=== PATIENT | female | born 1940 | race Caucasian/White ===

== ENCOUNTER 2023-10-18 10:12 | Outpatient (OUT) | payer MEDICARE, OTHER, SELFPAY ==
--- NOTE | 2023-10-18 10:30 | MM_ITS ---
Patient Name: SHANTI ZUNIGA MR#: [id number] : 1940 Exam Date: 10/18/2023 Ordering Doctor: DR Ba Billingsley D.O. RADIOLOGY REPORT PROCEDURE: MM TOMOSYNTHESIS SCREENING BI COMPARISON: MG MAMM SCREEN 3D TU CAD, 09/24/2021. MG MAMM SCREEN 3D TU CAD, 10/14/2022. INDICATIONS: screening Calculator Name NCI Breast Cancer Risk Assessment Tool 5 Year Breast Cancer Risk 3.70% Lifetime Breast Cancer Risk 5.70% Personal Breast Cancer No Personal Ovarian Cancer No Treatments None Family Cancers Sister with breast cancer at age 63; Father with lung cancer at age 71; Cousin-paternal with breast cancer at age 50. LOCATION: [facility] BREAST COMPOSITION: There are scattered areas of fibroglandular density. FINDINGS: DIAGNOSTIC CATEGORY 2--BENIGN FINDING. NO CHANGE FROM COMPARISON. Scattered benign-appearing nodules are present. Scattered benign-appearing calcifications are present. Scattered benign-appearing lymph nodes are present. RIGHT BREAST: No significant suspicious finding. LEFT BREAST: No significant suspicious finding. Stable micro clip marker upper outer quadrant, anterior breast RECOMMENDATIONS: ROUTINE MAMMOGRAM AND CLINICAL EVALUATION IN 12 MONTHS. PLEASE NOTE: A NORMAL MAMMOGRAM DOES NOT EXCLUDE THE POSSIBILITY OF BREAST CANCER. A CLINICALLY SUSPICIOUS PALPABLE LUMP SHOULD BE BIOPSIED. Dictated by: Ricky Nguyen MD on 10/18/2023 at 13:39 Approved by: Ricky Nguyen MD on 10/18/2023 at 13:58
[2023-10-18 10:40] LABS: Basophils Absolute Auto 0.1 10^3/uL (0.0-0.1); Basophils Percent Auto 0.6 % (0.2-2.0); Eosinophils Percent Auto 0.4 % (0.9-7.0); Hematocrit 42.6 % (36.0-48.0); Hemoglobin 13.7 g/dL (12.0-16.0); Immature Granulocytes Abs Auto 0.04 10^3/uL (0.00-0.03); Immature Granulocytes Pct Auto 0.4 % (0.0-0.5); Lymphocytes Absolute Auto 2.9 10^3/uL (1.2-3.8); Lymphocytes Percent Auto 26.5 % (20.5-60.0); Mean Corpuscular HGB Conc 32.2 g/dL (29.9-35.2); Mean Corpuscular Hemoglobin 30.2 pg (26.7-34.0); Mean Corpuscular Volume 93.8 fL (81.0-99.0); Mean Platelet Volume 11.1 fL (9.5-13.5); Monocytes Absolute Auto 0.4 10^3/uL (0.3-0.8); Monocytes Percent Auto 3.8 % (1.7-12.0); Neutrophils Absolute Auto 7.4 10^3/uL (1.4-6.5); Neutrophils Percent Auto 68.3 % (43.0-75.0); Platelet Count 274 10^3/uL (150-450); Red Blood Count 4.54 10^6/uL (4.20-5.40); Red Cell Distribution Width 12.3 % (11.0-15.0); White Blood Count 10.8 10^3/uL (4.0-11.0)
[2023-10-18 11:08] LABS: Bilirubin Urine NEGATIVE (NEGATIVE); Blood Urine NEGATIVE (NEGATIVE); Clarity Urine CLEAR (CLEAR); Color Urine LT. YELLOW (YELLOW); Glucose Urine UA NEGATIVE (NEGATIVE); Ketones Urine NEGATIVE (NEGATIVE); Leukocyte Esterase Urine NEGATIVE (NEGATIVE); Nitrite Urine NEGATIVE (NEGATIVE); Protein Urine NEGATIVE (NEG/TRACE); Specific Gravity Urine 1.015 (1.005-1.025); Urobilinogen Urine 0.2 EU/dL (0.2-1.0)
[2023-10-18 11:16] LABS: Alanine Aminotransferase 22 U/L (14-59); Albumin Level 3.6 g/dL (3.4-5.0); Alkaline Phosphatase 68 U/L (46-116); Anion Gap 12.5; Aspartate Amino Transferase 16 U/L (15-37); BUN Creatinine Ratio 25.3; Bilirubin Total 0.5 mg/dL (0.2-1.0); Calcium 10.2 mg/dL (8.5-10.1); Carbon Dioxide 27.7 mmol/L (21.0-32.0); Chloride 101 mmol/L (98-107); Chol HDL Ratio 3.4; Cholesterol 233 mg/dL (<=200); Estimated GFR (African America >60 (>=60); Estimated GFR (Non-African Ame 59 (>=60); Globulin 3.5 g/dL; Glucose 121 mg/dL (74-106); HDL Cholesterol 69 mg/dL (40-60); Potassium 4.2 mmol/L (3.5-5.1); Sodium 137 mmol/L (136-145); Total Protein 7.1 g/dL (6.4-8.2); Triglycerides 78 mg/dL (<=150); VLDL CHOLESTEROL 15.6 mg/dL
== END 2023-10-18 10:13 | disposition home or self-care (01) ==
LOC: MAMMO 10:12
PROVIDERS: PCP Internal Medicine; Visit Provider Internal Medicine
DX: Z12.31 Encounter for screening mammogram for malignant neoplasm of breast (principal); E78.00 Pure hypercholesterolemia, unspecified; I10 Essential (primary) hypertension; K21.00 Gastro-esophageal reflux disease with esophagitis, without bleeding; R10.9 Unspecified abdominal pain; Z80.3 Family history of malignant neoplasm of breast; Z80.1 Family history of malignant neoplasm of trachea, bronchus and lung
CPT/HCPCS: 36415; 77063; 77067; 80053; 80061; 81003; 85025

== ENCOUNTER 2024-01-31 07:59 | Outpatient (OUT) | payer MEDICARE, OTHER, SELFPAY ==
--- OUTSIDE RECORDS SUMMARY | 2024-01-31 08:09 | XMS_ITS | CCD ---
Author Organization [facility] Inform ion [facility] Care Team Providers Care Learning Services Coordinator Name Role Phone Ba Billingsley Unavailable DR CHANO SOTELO Attending Unavailable ROSANNA, DR GUILHERME Mcdonough Consulting Unavailable JOSE CRUZ, DR COSME Primary Care Unavailable DEEPAK, DR CHANO Ramos Admitting Unavailable SOTELO, DR CHANO Ramos Consulting Unavailable JOSE CRUZ, DR COSME Attending Unavailable JOSE CRUZ, DR COSME Consulting Unavailable JOSE CRUZ, DR COSME Primary Care Unavailable JOSE CRUZ, DR COSME Admitting Unavailable ROSANNA, DR GUILHERME Mcdonough Consulting Unavailable ERIC ABBASI Attending Unavailable Jose Cruz, DO Cosme Primary Care Provider MD Freedom Parra Attending Provider Freedom Parra Admitting Unavailable Freedom Parra Attending Unavailable Ba Billingsley Primary Care Unavailable Freedom Parra Admitting Unavailable Freedom Parra Attending Unavailable Ba Billingsley Primary Care Unavailable Bobby Purcell II Admitting UnavailBobby Spaulding II Attending UnavailBa Latham Primary Care Unavailable Allergies Allergy Classification Reported Allergen(s) Allergy Type Date of Onset Reaction(s) Facility (4 sources) sulfADIAZINE Drug Allergy Unknown iSn[facility] Other (4 sources) Sulfamethoxazole / Trimethoprim Drug Allergy Unknown [facility] Other (1 source) Sulfonamides (Antibiotic) Drug allergy (disorder) 7 [facility] Repository (1 source) sulfADIAZINE Drug Allergy 4 [facility] Repository (1 source) Sulfamethoxazole Drug Allergy 4 [facility] Repository (1 source) Trimethoprim Drug Allergy [address] [place] [address] Repository Medications Current Medications Medication Drug Class(es) Dates Sig (Normalized) Sig (Original) amLODIPine 5 mg oral tablet (20 sources) Dihydropyridine Calcium Channel Maximilian Start: 10-13-2023 take 5 mg by mouth once daily Amlodipine Active 5 MG PO Daily October 13, 2023 10:26am Start: 09-10-2023 End: 10-13-2023 Amlodipine Discontinued 0 .R OUTE .COMPLEX 90 September 10, 2023 12:55pm October 13, 2023 10:27am TAKE 1 TABLET DAILY Start: 08-19-2023 End: 09-10-2023 take 1 tablet by mouth once daily Amlodipine Discontinued 1 TAB PO Daily August 19, 2023 1:00am September 10, 2023 12:55pm FreeTextSi tablet Orally Once a day; Note: Source Status: Continue; Provider: Jose Cruz Ramos take 1 tablet by magan th every twenty-four hours amLODIPine Besylate 5 MG 1 tablet Orally Once a day Active azithromycin 250 mg oral tablet (1 source) Macrolide Antimicrobial Start: 09-28-2022 Azithromycin 250 MG as directed Orally daily for 5 days Sep, Active benazepril hydrochloride 20 mg oral tablet (16 sources) Angiotensin Converting Enzyme Inhibitor Start: 08-19-2023 End: 10-13-2023 take 1 tablet by mouth once daily Benazepril Active 20 MG PO Daily October 13, 2023 10:27am FreeTextSi tablet Orally Once a day; Note: Source Status: Continue; Provider: Jose Cruz Ramos Start: 08-05-2022 take 1 tablet by magan th every twenty-four hours Benazepril HCl 20 MG 1 tablet Orally Once a day Jul, Active calcium carbonate 1500 mg / cholecalciferol 800 unt chewable tablet (6 sources) Vitamin D Start: 08-19-2023 take 1 tablet by mouth once daily Calcium Carbonate-Vitamin D3 (Caltrate 600 Plus D) 600 mg-20 mcg (800 unit) tablet,chewable Active 1 TAB PO Daily August 19, 2023 1:00am fluticasone propionate 0.05 mg/actuat metered dose nasal spray (4 sources) Corticosteroid Start: 12-21-2023 take 1 spray(s) nasal route once daily Fluticasone Propionate (24 Hour Allergy Relief) 50 mcg/actuation spray,suspension Active 1 SPRAY INTRANASAL Daily December 21, 2023 12:00am administer into each nostril hydroCHLOROthiazide 25 mg oral tablet (16 sources) Thiazide Diuretic Start: 08-19-2023 End: 10-13-2023 Hydrochlorothiazide Active 25 MG PO Daily October 13, 2023 10:27am FreeTextSi tablet daily Orally Once a day; Note: Source Status: Continue; Provider: Jose Cruz Ramos Start: 08-19-2022 hydroCHLOROthi azide 25 MG 1 tablet daily Orally Once a day Aug, Active {20 (nirmatrelvir 150 MG Oral Tablet) / 10 (ritonavir 100 MG Oral Tablet) } Pack [Paxlovid 5-Day] (2 sources) Start: 09-10-2022 take 3 tablets by mouth every twelve hours Paxlovid (300/100) 20 x 150 MG & 10 x 100MG 3 tablets Orally Twice a day for 5 day(s) Aug, Active Completed/Discontinued Medications Medication Drug Class(es) Dates Sig (Normalized) Sig (Original) aspirin 81 mg chewable tablet (6 sources) Platelet Aggregation Inhibitor, Nonsteroidal Anti-inflammatory Drug Start: 08-19-2023 End: 12-21-2023 take 81 mg by mouth once daily Aspirin Discontinued 81 MG PO Daily August 19, 2023 1:00am December 21, 2023 10:19am Problems Active Problems Problem Classification Problem Date Documented Da te Episodic/Chronic Abdominal pain (11 sources) Left flank pain; Translations: [Unspecified abdominal pain] 10-13-2023 Episodic Anxiety disorders (15 sources) Generalized anxiety disorder; Translations: [Generalized anxiety disorder] 08-19-2023 Chronic Asthma (18 sources) Mild intermittent asthma; Translations: [Mild intermittent asthma, uncomplicated] Chronic Biliary tract disease (4 sources) Biliary calculus; Translations: [Calculus of gallbladder without cholecystitis without obstruction] Episodic Diabetes mellitus without complication (6 sources) Impaired fasting glycemia; Translations: [Impaired fasting glucose] 10-18-2023 Episodic Disorders of lipid metabolism (15 sources) Pure hypercholesterolemia ; 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 ] 10-11-2023 Chronic Diverticulosis and diverticulitis (3 sources) Diverticular disease of colon; Translations: [Diverticulosis of colon] Chronic Esophageal disorders (12 sources) Gastro-esophageal reflux disease with esophagitis; Translations: [Gastroesophageal reflux disease with esophagitis without hemorrhage] 08-19-2023 Chronic Essential hypertension (20 sources) Essential hypertension; Translations: [Essential (primary) hypertension] Onset: 10-14-2022 Chronic Gastrointestinal hemorrhage (3 sources) Hematochezia; Translations: [HEMOCCULT POSITIVE STOOL] Episodic Malaise and fatigue (5 sources) Fatigue; Translations: [Other fatigue] Onset: 10-21-2022 Episodic Menopausal disorders (10 sources) Decreased estrogen level; Translations: [Other primary ovarian failure] 10-11-2023 Chronic Osteoarthritis (17 sources) Osteoarthritis of left knee joint; Translations: [Unilateral primary osteoarthritis, left knee] Chronic Other aftercare (1 source) Other petroleum terminal plant operator (current) drug therapy; Translations: [OTH LONGTERM CURRENT DRUG THERAPY] Onset: 10-21-2022 Episodic Other and unspecified benign neoplasm (3 sources) History of polyp of colon; Translations: [History of colon polyps] Episodic Other and unspecified benign neoplasm (4 sources) Polyp of colon; Translations: [Polyp of colon] Episodic Other bone disease and musculoskeletal deformities (4 sources) Tietze's disease; Translations: [Chondrocostal junction syndrome [Tietze]] Episodic Other diseases of veins and lymphatics (4 sources) Peripheral venous insufficiency; Translations: [Venous insufficiency (chronic) (peripheral)] Episodic Other diseases of veins and lymphatics (1 source) Venous insufficiency (chronic) (peripheral) Episodic Other lower respiratory disease (4 sources) Breathing painful; Translations: [Pleurodynia] Episodic Other nervous system disorders (5 sources) Chronic pain; Translations: [Other chronic pain] 12-09-2023 Chronic Other nervous system disorders (10 sources) Other chronic pain; Translations: [Other chronic pain] Onset: 01-04-2024 12-09-2023 Chronic Other non-traumatic joint disorders (14 sources) Pain in left knee; Translations: [Left knee pain] 12-09-2023 Episodic Other nutritional; endocrine; and metabolic disorders (2 sources) Obese class I; Translations: [Obesity, unspecified] Chronic Other nutritional; endocrine; and metabolic disorders (1 source) Obesity caused by energy imbalance; Translations: [Other obesity due to excess calories] Chronic Other nutritional; endocrine; and metabolic disorders (1 source) Body mass index 30+ - obesity; Translations: [Body mass index (BMI) 31.0-31.9, adult] Chronic Other nutritional; endocrine; and metabolic disorders (1 source) Obesity, unspecified Chronic Other nutritional; endocrine; and metabolic disorders (1 source) Other obesity due to excess calories Chronic Other nutritional; endocrine; and metabolic disorders (1 source) Body mass index (BMI) 31.0-31.9, adult Chronic Other nutritional; endocrine; and metabolic disorders (6 sources) Hypercalcemia; Translations: [Hypercalcemia] 10-18-2023 Chronic Other screening for suspected conditions (not mental disorders or infectious disease) (1 source) Encounter for screening mammogram for malignant neoplasm of breast; Translations: [ENC SCR MAMMO MALIG NEOPLASM BREAST] Onset: 10-21-2022 Episodic Other skin disorders (4 sources) Asteatosis cutis; Translations: [Xerosis cutis] Episodic Other upper respiratory infections (1 source) Acute sphenoidal sinusitis, unspecified Episodic Residual codes; unclassified (10 sources) Obstructive sleep apnea syndrome; Translations: [Obstructive sleep apnea (adult) (pediatric)] 08-19-2023 Chronic Residual codes; unclassified (6 sources) Obstructive sleep apnea (adult) (pediatric); Translations: [Obstructive sleep apnea (adult)(pediatric)] Chronic Residual codes; unclassified (1 source) Family history of malignant neoplasm of breast; Translations: [FAMILY HX MALIG NEOPLASM OF BREAST] Onset: 10-21-2022 Episodic Residual codes; unclassified (1 source) Family history of malignant neoplasm of trachea, bronchus and lung; Translations: [FAM HX MALIG NEOPLSM TRACH BRON LNG] Onset: 10-21-2022 Episodic Unclassified (1 source) Pain in left knee; Translations: [Pain in left knee] Onset: 08-19-2023 Past or Other Problems Problem Classification Problem Date Documented Da te Episodic/Chronic Esophageal disorders (3 sources) Esophageal disorders; Translations: [Gastroesophageal reflux disease with esophagitis without hemorrhage] Other lower respiratory disease (4 sources) Pleurodynia; Translations: [PLEURODYNIA] Onset: 02-17-2022 Episodic Viral infection (1 source) COVID-19 Results Test Name Value Interpretation Reference Range Facility Basophils Auto (Bld) [#/Vol] on 10-18-2023 Basophils (Bld) [#/Vol] 0.1 10 3/uL 0.0-0.1 [facility] Basophils/100 WBC Auto (Bld) on 10-18-2023 Basophils/100 WBC (Bld) 0.6 % 0.2-2.0 [facility] Bilirubin Auto test strip (U ) [Mass/Vol]on 10-18-2023 Bilirubin (U) [Mass/Vol] Negative NEGATIVE [facility] Cholesterol in LDL Calc [Mas s/Vol]on 10-18-2023 Cholesterol in LDL [Mass/Vol] 149.0 mg/dL [facility] Comment on above: <100 mg/dl [id number] 0-129 mg/dl NEAR OR ABOVE [id number] mg/dl BORDERLINE [id number] mg/dl HIGH>190 mg/dl VERY HIGH Cholesterol in VLDL Calc [Ma ss/Vol]on 10-18-2023 Cholesterol in VLDL [Mass/Vol] 15.6 mg/dL [facility] Eosinophils/100 WBC Auto (Bl d)on 10-18-2023 Eosinophils/100 WBC (Bld) 0.4 % Low 0.9-7.0 [facility] Erythrocyte distribution wid th Auto (RBC) [Ratio]on 10-18-2023 Erythrocyte distribution width (RBC) [Ratio] 12.3 % 11.0-15.0 [facility] Estimated glomerular filtrat ion rate (GFR) non- Americanon 10-18-2023 GFR/1.73 sq M.predicted among non-blacks MDRD (S/P/Bld) [Vol rate/Area] 59 mL/min/{1.73_m2} Low >=60 [facility] Globulin Calc (S) [Mass/Vol] on 10-18-2023 Globulin (S) [Mass/Vol] 3.5 g/dL [facility] Hematocrit Auto (Bld) [Volum e fraction]on 10-18-2023 Hematocrit (Bld) [Volume fraction] 42.6 % 36.0-48.0 [facility] Hemoglobin [Mass/volume] in Bloodon 10-18-2023 Hemoglobin (Bld) [Mass/Vol] 13.7 g/dL 12.0-16.0 [facility] Laboratory - Chemistry and C hemistry - challengeon 10-18-2023 Albumin [Mass/Vol] 3.6 g/dL 3.4-5.0 [facility] ALP [Catalytic activity/Vol] 68 U/L 46-116 [facility] ALT [Catalytic activity/Vol] 22 U/L 14-59 [facility] AST [Catalytic activity/Vol] 16 U/L 15-37 [facility] Bilirubin [Mass/Vol] 0.5 mg/dL 0.2-1.0 [facility] Calcium [Mass/Vol] 10.2 mg/dL High 8.5-10.1 [facility] Chloride [Moles/Vol] 101 mmol/L 98-107 [facility] Cholesterol [Mass/Vol] 233 mg/dL High <=200 [facility] Cholesterol in HDL [Mass/Vol] 69 mg/dL High 40-60 [facility] Comment on above: > or =60 mg/dl - LOW CARDIOVASCULAR RISK<40 mg/dl - HIGH CARDIOVASCULAR RISK CO2 [Moles/Vol] 27.7 mmol/L 21.0-32.0 [facility] Creatinine [Mass/Vol] 0.91 mg/dL 0.55-1.02 [facility] GFR/1.73 sq M.predicted MDRD (S/P/Bld) [Vol rate/Area] mL/min/{1.73_m2} >=60 [facility] Glucose [Mass/Vol] 121 mg/dL High 74-106 [facility] Potassium [Moles/Vol] 4.2 mmol/L 3.5-5.1 [facility] Protein [Mass/Vol] 7.1 g/dL 6.4-8.2 [facility] Sodium [Moles/Vol] 137 mmol/L 136-145 [facility] Triglyceride [Mass/Vol] 78 mg/dL <=150 [facility] Urea nitrogen [Mass/Vol] 23.0 mg/dL High 7.0-18.0 [facility] Urea nitrogen/Creatinine [Mass ratio] 25.3 mg/mg [facility] Glucose (U) [Mass/Vol] Negative NEGATIVE [facility] Ketones Ql (U) Negative NEGATIVE [facility] pH (U) 7.0 [pH] 5.0-9.0 [facility] Specific gravity (U) [Rel density] 1.015 1.005-1.025 [facility] Urobilinogen Qn (U) 0.2 {Marlene'U}/dL 0.2-1.0 [facility] Laboratory - Hematology and Cell countson 10-18-2023 Immature granulocytes/100 WBC (Bld) 0.4 % 0.0-0.5 [facility] - Specimen inform ationon 10-18-2023 Appearance (U) CLEAR CLEAR [facility] Color (U) LT. YELLOW YELLOW [facility] Laboratory - Urinalysison Leukocyte esterase Test strip Ql (U) Negative NEGATIVE [facility] Nitrite Ql (U) Negative NEGATIVE [facility] Protein Ql (U) Negative NEG/TRACE [facility] Leukocytes [#/volume] correc papa for nucleated erythrocytes in Blood by Automated counon 10-18-2023 WBC corrected for nucl RBC Auto (Bld) [#/Vol] 10.8 10 3/uL 4.0-11.0 [facility] Lymphocytes Auto (Bld) [#/Vo l]on 10-18-2023 Lymphocytes (Bld) [#/Vol] 2.9 10 3/uL 1.2-3.8 [facility] Lymphocytes/100 WBC Auto (Bl d)on 10-18-2023 Lymphocytes/100 WBC (Bld) 26.5 % 20.5-60.0 [facility] MCH Auto (RBC) [Entitic mass ]on 10-18-2023 MCH (RBC) [Entitic mass] 30.2 pg 26.7-34.0 [facility] MCHC Auto (RBC) [Mass/Vol]on 10-18-2023 MCHC (RBC) [Mass/Vol] 32.2 g/dL 29.9-35.2 [facility] MCV Auto (RBC) [Entitic vol] on 10-18-2023 MCV (RBC) [Entitic vol] 93.8 fL 81.0-99.0 [facility] Monocytes Auto (Bld) [#/Vol] on 10-18-2023 Monocytes (Bld) [#/Vol] 0.4 10 3/uL 0.3-0.8 [facility] Monocytes/100 WBC Auto (Bld) on 10-18-2023 Monocytes/100 WBC (Bld) 3.8 % 1.7-12.0 [facility] Neutrophils Auto (Bld) [#/Vo l]on 10-18-2023 Neutrophils (Bld) [#/Vol] 7.4 10 3/uL High 1.4-6.5 [facility] Neutrophils/100 WBC Auto (Bl d)on 10-18-2023 Neutrophils/100 WBC (Bld) 68.3 % 43.0-75.0 [facility] No Panel Informationon 10-17 Eosinophils # (Auto) 0.0 10 3/uL 0.0-0.7 [facility] Immature Granulocyte # (Auto) 0.04 10 3/uL High 0.00-0.03 [facility] Platelet mean volume Auto (B ld) [Entitic vol]on 10-18-2023 Platelet mean volume (Bld) [Entitic vol] 11.1 fL 9.5-13.5 [facility] Platelets Auto (Bld) [#/Vol] on 10-18-2023 Platelets (Bld) [#/Vol] 274 10 3/uL 150-450 [facility] RBC Auto (Bld) [#/Vol]on RBC (Bld) [#/Vol] 4.54 10 6/uL 4.20-5.[address] [facility] Serum or plasma albumin/glob ulin mass ratioon 10-18-2023 Albumin/Globulin [Mass ratio] 1.0 {ratio} [facility] Serum or plasma anion gap de terminationon 10-18-2023 Anion gap [Moles/Vol] 12.5 mmol/L [facility] Serum or plasma total choles terol/high density lipoprotein (HDL) cholesterol mass [place] 10-18-2023 Cholesterol.total/Ch olesterol in HDL [Mass ratio] 3.4 {ratio} [facility] Comment on above: 3.3 - 4.4 LOW RISK4. 4 - 7.1 AVERAGE RISK7.1 - 11.0 MODERATE RISK>11.0 HIGH RISK Urine hemoglobin detection b y automated test stripon 10-18-2023 Hemoglobin Auto test strip Ql (U) Negative NEGATIVE [facility] Laboratory - Chemistry and C hemistry - challengeon 10-13-2023 Bilirubin Ql (U) Negative [facility] Glucose (U) [Mass/Vol] Negative [facility] Ketones Ql (U) [facility] pH (U) 5.0 [pH] [facility] Specific gravity (U) [Rel density] 1.010 [facility] Urobilinogen (U) [Mass/Vol] 0.2 mg/dL [facility] Laboratory - Specimen inform ationon 10-13-2023 Appearance (U) clear [facility] Color (U) yellow [facility] Laboratory - Urinalysison Leukocyte esterase Test strip Ql (U) Negative [facility] Nitrite Ql (U) Negative [facility] Protein Ql (U) Negative [facility] No Panel Informationon 10-12 Urine Occult Blood [facility] XR pelvis 1-2Von 08-19-2023 XR pelvis 1-2V [facility] [place] [address] XRay Report Signed Patient: Shanti Zuniga MR#: [id number] : 1940 Acct:[id number] Age/Sex: 82 / F ADM Date: 08/19/23 Loc: [facility] Room: Type: [facility] Attending Dr: Bobby Purcell II, MD Copies to: Bobby Purcell MD Ordering Provider: Bobby Purcell MD Date of Service: 08/19/23 XR/XR knee LT 4V*: M25.562 - Pain in left knee ([id number]) XR/XR pelvis 1-2V: M25.562 - Pain in left knee 4 views LEFT knee plain film COMPARISON: None HISTORY: Chronic LEFT knee pain. ACUTE FINDINGS: No acute findings DEGENERATIVE CHANGE: Extensive tricompartmental degeneration with joint space narrowing and marginal spurring. Valgus angulation. Intra-articular bodies. Patellar subluxation SOFT TISSUE FINDINGS: Unremarkable JOINT EFFUSION: None POSTOP CHANGES: None BONE MINERALIZATION: Adequate XR/XR knee LT 4V* IMPRESSION: Extensive tricompartmental degeneration. Valgus angulation. Single view low pelvis Adequate clear spaces. Preserved articular surfaces. Minor greater trochanter spurring. Adequate alignment. Intact bony structures. Mild SI joint degeneration. IMPRESSION: Mild degeneration. Impression dictated by: Anam Bauer M.D.08/19/2023 2:32 PM Dictation Location: [place] [address] Transcribed By: [facility] 08/19/23 1432 Dictated By: Anam Bauer DO 08/19/23 1429 Signed By: 08/19/23 1432 Normal [facility] CBC AUTO DIFFon 10-14-2022 BASO # 0.1 103/ul Normal 0.0-0.1 [facility] Comment on above: Performed By: #### C BC #### [facility] [address] [place] [address] Dr. Isaias Zimmer Basophils/100 WBC (Bld) 0.6 % Normal 0.2-2.0 [facility] Comment on above: Performed By: #### C BC #### [facility] [address] [place] [address] [address] Isaias Zimmer EO # 0.1 103/ul Normal 0.0-0.7 [facility] Comment on above: Performed By: #### C BC #### [facility] [address] [address] [address] Isaias Zimmer Eosinophils/100 WBC (Bld) 0.7 % Critically low 0.9-7.0 [facility] Comment on above: Performed By: #### C BC #### [facility] [address] [place] [address] [address] Isaias Zimmer Erythrocyte distribution width (RBC) [Ratio] 12.3 % Normal 11.0-15.0 [facility] Comment on above: Performed By: #### C BC #### [facility] [address] [place] [address] Dr. Isaias Zimmer Hematocrit (Bld) [Volume fraction] 43.9 % Normal 36.0-48.0 [facility] Comment on above: Performed By: #### C BC #### [facility] [address] [place] [address] Dr. Isaias Zimmer Hemoglobin (Bld) [Mass/Vol] 14.1 g/dL Normal 12.0-16.0 [facility] Comment on above: Performed By: #### C BC #### [facility] [address] [place] [address] Dr. Isaias Zimmer IG # 0.02 10e3/ul Normal 0.00-0.03 [facility] Comment on above: Performed By: #### C BC #### [facility] [address] [place] [address] Dr. Isaias Zimmer IG % 0.2 % Normal 0.0-0.5 [facility] Comment on above: Performed By: #### C BC #### [facility] [address] [place] [address] Dr. Isaias Zimmer LYMPH # 2.4 103/ul Normal 1.2-3.8 [facility] Comment on above: Performed By: #### C BC #### [facility] [address] [place] [address] Dr. Isaias Zimmer Lymphocytes/100 WBC (Bld) 23.0 % Normal 20.5-60.0 [facility] Comment on above: Performed By: #### C BC #### [facility] [address] [place] [address] Dr. Isaias Zimmer MANUAL DIFF REQ NO Normal [facility] Comment on above: Performed By: #### C BC #### [facility] [address] [place] [address] Dr. Isaias Zimmer MCH (RBC) [Entitic mass] 29.6 pg Normal 26.7-34.0 [facility] Comment on above: Performed By: #### C BC #### [facility] [address] [place] [address] Dr. Isaias Zimmer MCHC (RBC) [Mass/Vol] 32.1 g/dL Normal 29.9-35.2 [facility] Comment on above: Performed By: #### C BC #### [facility] [address] [place] [address] Dr. Isaias Zimmer MCV (RBC) [Entitic vol] 92.2 fL Normal 81.0-99.0 [facility] Comment on above: Performed By: #### C BC #### [facility] [address] [place] [address] Dr. Isaias Zimmer MONO # 0.3 103/ul Normal 0.3-0.8 [facility] Comment on above: Performed By: #### C BC #### [facility] [address] [place] [address] Dr. Isaias Zimmer Monocytes/100 WBC (Bld) 3.1 % Normal 1.7-12.0 [facility] Comment on above: Performed By: #### C BC #### [facility] [address] [place] [address] Dr. Isaias Zimmer NEUT # 7.5 103/ul Critically high 1.4-6.5 [facility] Comment on above: Performed By: #### C BC #### [facility] [address] [place] [address] Dr. Isaias Zimmer Neutrophils/100 WBC (Bld) 72.4 % Normal 43.0-75.0 [facility] Comment on above: Performed By: #### C BC #### [facility] [address] [place] [address] Dr. Isaias Zimmer Platelet mean volume (Bld) [Entitic vol] 11.7 fL Normal 9.5-13.5 [facility] Comment on above: Performed By: #### C BC #### [facility] [address] [place] [address] Dr. Isaias Zimmer PLT 268 103/ul Normal 150-450 [facility] Comment on above: Performed By: #### C BC #### [facility] [address] [place] [address] Dr. Isaias Zimmer RBC 4.76 106/ul Normal 4.20-5.40 [facility] Comment on above: Performed By: #### C BC #### [facility] [address] [place] [address] Dr. Isaias Zimmer WBC 10.3 103/ul Normal 4.0-11.0 [facility] Comment on above: Performed By: #### C BC #### [facility] [address] [place], [place] [address] Dr. Isaias Zimmer MG MAMM SCREEN 3D TU CADon 10-14-2022 MG MAMM SCREEN 3D TU CAD Patient: SHANTI ZUNIGA Exam Date: 10/14/2022 : 1940 Gender:F Ordering : DR BA BILLINGSLEY D.O. Admission #: [id number] Family : Order #: [id number] CLICK HERE TO VIEW EXAM RADIOLOGY REPORT PROCEDURE: MAMMOGRAM SCREENING 3D BILATERAL CAD COMPARISON: MG MAMM SCREEN 3D TU CAD, 09/24/2021. MG MAMM SCREEN 3D TU CAD, 09/23/2020. INDICATIONS: Screening mammography Calculator Name NCI Breast Cancer Risk Assessment Tool 5 Year Breast Cancer Risk 3.80% Lifetime Breast Cancer Risk 6.30% Personal Breast Cancer No Personal Ovarian Cancer No Treatments None Family Cancers Sister with breast cancer at age 63; Father with lung cancer at age 71; Cousin-paternal with breast cancer at age 50. LOCATION: [facility] BREAST COMPOSITION: Scattered areas fibroglandular density. FINDINGS: DIAGNOSTIC CATEGORY 2--BENIGN FINDING. NO CHANGE FROM COMPARISON. Scattered benign-appearing nodules are present. Scattered benign-appearing calcifications are present. Scattered benign-appearing lymph nodes are present. RIGHT BREAST: No significant suspicious finding. LEFT BREAST: No significant suspicious finding. Micro clip marker upper outer quadrant anterior breast RECOMMENDATIONS: ROUTINE MAMMOGRAM AND CLINICAL EVALUATION IN 12 MONTHS. PLEASE NOTE: A NORMAL MAMMOGRAM DOES NOT EXCLUDE THE POSSIBILITY OF BREAST CANCER. A CLINICALLY SUSPICIOUS PALPABLE LUMP SHOULD BE BIOPSIED. Dictated by: Guilherme Marte MD on 10/14/2022 at 13:50 Approved by: Guilherme Marte MD on 10/14/2022 at 13:52 Normal [facility] PROF CHEM 8 (BAS METB)on Anion gap [Moles/Vol] 12.6 mmol/L Normal [facility] Comment on above: Performed By: #### B MP, TSH #### [facility] [address] [place], [place] [address] Dr. Isaias Zimmer Calcium [Mass/Vol] 9.5 mg/dL Normal 8.5-10.1 [facility] Comment on above: Performed By: #### B LANDON, TSH #### [facility] [address] [place] [address] [address] Isaias Zimmer Chloride [Moles/Vol] 101 mmol/L Normal 98-107 [facility] Comment on above: Performed By: #### B LANDON, TSH #### [facility] [address] [place] [address] [address] Isaias Zimmer CO2 [Moles/Vol] 28.5 mmol/L Normal 21.0-32.0 [facility] Comment on above: Performed By: #### B LANDON, TSH #### [facility] [address] [place] [address] Dr. Isaias Zimmer Creatinine [Mass/Vol] 0.91 mg/dL Normal 0.55-1.02 [facility] Comment on above: Performed By: #### B LANDON, TSH #### [facility] [address] [place] [address] Dr. Isaias Zimmer EGFR-AF SLOVENIAN >60 Normal >=60 [facility] Comment on above: Performed By: #### B LANDON, TSH #### [facility] [address] [place] [address] Dr. Isaias Zimmer EGFR-NON AF SLOVENIAN 60 mL/min/1.73m2 Normal >=60 [facility] Comment on above: Performed By: #### B LANDON, TSH #### [facility] [address] [place] [address] Dr. Isaias Zimmer Glucose [Mass/Vol] 116 mg/dL Critically high 74-106 [facility] Comment on above: Performed By: #### B LANDON, TSH #### [facility] [address] [place] [address] Dr. Isaias Zimmer Potassium [Moles/Vol] 4.1 mmol/L Normal 3.5-5.1 [facility] Comment on above: Performed By: #### B LANDON, TSH #### [facility] [address] [place] [address] Dr. Isaias Zimmer Sodium [Moles/Vol] 138 mmol/L Normal 136-145 [facility] Comment on above: Performed By: #### B MP, TSH #### [facility] [address] [place] [address] Dr. Isaias Zimmer Urea nitrogen [Mass/Vol] 16.0 mg/dL Normal 7.0-18.0 [facility] Comment on above: Performed By: #### B MP, TSH #### [facility] [address] [place], [place] [address] Dr. Isaias Zimmer Urea nitrogen/Creatinine [Mass ratio] 17.6 mg/mg Normal [facility] Comment on above: Performed By: #### B ALNDON, TSH #### [facility] [address] [place] [address] Dr. Isaias Zimmer TSHon 10-14-2022 TSH 1.312 uIU/mL Normal 0.358-3.740 [facility] Comment on above: Performed By: #### B LANDON, TSH #### [facility] [address] [place] [address] Dr. Isaias Zimmer XR RIBS RT PA Frankie 2 XR RIBS RT PA CH EXAMINATION: XR RIBS RT PA CH HISTORY: Pleuritic pain COMPARISON: No relevant comparison available. FINDINGS: LUNGS: No significant pulmonary parenchymal abnormalities. Left mid lung nodule, calcified granulomas favored PLEURA: No pneumothorax, effusion, or pleural thickening. MEDIASTINUM: No visible mass or adenopathy. CARDIAC: No cardiomegaly or cardiac silhouette abnormality. RIBS: No acute rib fracture OTHER: Degenerative changes of the spine IMPRESSION: No acute rib fracture Electronically authenticated by: GUILHERME MARTE Date: 2022-02-17 11:20 Normal [facility] Vital Signs Date Time Vital Sign Value Performing Clinician Facility 01-04-2024 11:25-0400 Diastolic blood pressure 67 mm[Hg] [facility] [employer] Work Phone: [facility] 01-04-2024 11:25-0400 Heart rate 75 /min [facility] [employer] Work Phone: [facility] 01-04-2024 11:25-0400 Respiratory rate 18 /min [facility] [employer] Work Phone: [facility] 01-04-2024 11:25-0400 SaO2% (BldA) [Mass fraction] 98 % DO Ba Ball Work Phone: [facility] 01-04-2024 11:25-0400 Systolic blood pressure 125 mm[Hg] DO Ba Ball Work Phone: [facility] 01-04-2024 10:12-0400 Body height 157.48 cm DO Ba Ball Work Phone: [facility] 01-04-2024 10:12-0400 Body weight 75.29 kg DO Ba Ball Work Phone: [facility] 12-29-2023 09:08-0400 Body height 157.48 cm DO Ba Ball Work Phone: [facility] 12-29-2023 09:08-0400 Body mass index (BMI) [Ratio] 29.9 kg/m2 DO Ba Ball Work Phone: [facility] 12-29-2023 09:08-0400 Body weight 74.38 kg DO Ba Ball Work Phone: [facility] 12-21-2023 11:07-0400 Diastolic blood pressure 77 mm[Hg] DO Ba Ball Work Phone: [facility] 12-21-2023 11:07-0400 Heart rate 69 /min DO Ba Ball Work Phone: [facility] 12-21-2023 11:07-0400 Respiratory rate 18 /min DO Ba Ball Work Phone: [facility] 12-21-2023 11:07-0400 SaO2% (BldA) [Mass fraction] 95 % DO Ba Ball Work Phone: [facility] 12-21-2023 11:07-0400 Systolic blood pressure 146 mm[Hg] DO Ba Ball Work Phone: [facility] 12-21-2023 10:20-0400 Body height 157.48 cm DO Ba Ball Work Phone: [facility] 12-21-2023 10:20-0400 Body weight 76.2 kg DO Ba Ball Work Phone: [facility] 10-13-2023 10:09-0400 Body height 157.48 cm [facility] 10-13-2023 10:09-0400 Body mass index (BMI) [Ratio] 31.2 kg/m2 [facility] 10-13-2023 10:09-0400 Body weight 77.56 kg [facility] 10-13-2023 10:09-0400 Diastolic blood pressure 76 mm[Hg] [facility] 10-13-2023 10:09040 Heart rate 88 /min [facility] 10-13-2023 10:09-0400 SaO2% (BldA) [Mass fraction] 98 % [facility] 10-13-2023 10:09-0400 Systolic blood pressure 116 mm[Hg] [facility] 04-06-2023 10:00-0400 Body height 157.48 cm Ba Ball Other [facility] Other 04-06-2023 10:00-0400 Body mass index (BMI) [Ratio] 31.86 kg/m2 Ba Ball Other [facility] Other 04-06-2023 10:00-0400 Body weight 79.02 kg Ba Ball Other [facility] Other 04-06-2023 10:00-0400 Diastolic blood pressure 73 mm[Hg] Ba Ball Other [facility] Other 04-06-2023 10:00-0400 Respiratory rate 12 /min Ba Ball Other [facility] Other 04-06-2023 10:00-0400 Systolic blood pressure 138 mm[Hg] Ba Ball Other [facility] Other Encounters Encounter Date Encounter Type Care Provider Facility Start: 01-21-2024 End: 01-21-2024 ambulatory DO Ba Ball Work Phone: [facility] Work Phone: Start: 01-21-2024 End: 01-21-2024 Patient encounter procedure DO Ba Ball Work Phone: [facility] Work Phone: Start: 01-04-2024 Non-patient / Non-visit DO Fortino karolina Ball Work Phone: [facility] Work Phone: Start: 01-04-2024 End: 01-04-2024 Admission to same day surgery center DO Ba Ball Work Phone: [facility] Work Phone: Start: 01-04-2024 End: 01-04-2024 ambulatory DO Ba Ball Work Phone: [facility] Work Phone: Start: 12-29-2023 End: 12-29-2023 ambulatory DO Ba Ball Work Phone: [facility] Work Phone: Start: 12-29-2023 End: 12-29-2023 Patient encounter procedure DO Ba Ball Work Phone: [facility] Work Phone: Start: 12-21-2023 Non-patient / Non-visit DO Fortino karolina Ball Work Phone: [facility] Work Phone: Start: 12-21-2023 End: 12-21-2023 Admission to same day surgery center DO Ba Ball Work Phone: [facility] Work Phone: Start: 12-21-2023 End: 12-21-2023 ambulatory DO Ba Jose Cruz Work Phone: [facility] Work Phone: Start: 12-09-2023 End: 12-09-2023 ambulatory [facility] Work Phone: Start: 12-09-2023 End: 12-09-2023 Patient encounter procedure [facility] Work Phone: Start: 11-22-2023 End: 11-22-2023 ambulatory [facility] Work Phone: Start: 11-22-2023 End: 11-22-2023 Patient encounter procedure [facility] Work Phone: Start: 10-19-2023 End: 10-19-2023 ambulatory ERIC ELROY Not Available Start: 10-18-2023 Non-patient / Non-visit [facility] Work Phone: Start: 10-13-2023 End: 10-13-2023 Patient encounter procedure [facility] Work Phone: Start: 08-19-2023 End: 08-19-2023 ambulatory Bobby Purcell II Facility:[facility] Start: 04-06-2023 End: 04-06-2023 ambulatory Ba Billingsley Other [employer] Other Start: 04-06-2023 Office outpatient vi sit 25 minutes Ba Billingsley [facility] Start: 10-21-2022 End: 10-21-2022 ambulatory Ba Billingsley Other [employer] Other Start: 10-21-2022 Telephone encounter Ba Billingsley [facility] Start: 10-14-2022 End: 10-15-[address] BA BILLINGSLEY Facility: Start: 09-28-2022 End: 09-28-2022 ambulatory Ba Billingsley Other [employer] Other Start: 09-28-2022 Office outpatient vi sit 15 minutes Ba Billingsley [facility] Start: 09-10-2022 End: 09-10-2022 ambulatory Ba Billingsley Other [employer] Other Start: 09-10-2022 Office outpatient vi sit 15 minutes Ba Billingsley [facility] Start: 02-17-2022 End: 02-18-[address] CHANO SOTELO Facility:[facility]1 Procedures Date Procedure Procedure Detail Performing Clinician Start: 01-04-2024 Local anesthetic ner ve block in lower limb DO Ba Billingsley Work Phone: Start: 12-21-2023 Local anesthetic ner ve block in lower limb DO Ba Billingsley Work Phone: Plan of Treatment Date Care Activity Detail Author Start: 01-04-2024 [facility] Start: 12-21-2023 [facility] Comprehensive metabo lic 2000 panel - Serum or Plasma [facility] Patient Education Know your Meds [facility] Diagnostic Block [facility] Work Phone: Patient referral [facility] Work Phone: [facility] Immunizations Immunization Date Immunization Notes Care Provider Fa carroll 03-08-2022 COVID-19 Pfizer (bivalent) Ba Billingsley Other [facility] 03-08-2022 COVID-19 Vaccine Pfi zer - Documentation Purposes Only Ba Billingsley Other [facility] 03-02-2022 influenza virus vaccine, split virus (incl. purified surface antigen) Ba Billingsley Other [facility] Other 03-02-2022 influenza virus vaccine, unspecified formulation [facility] 03-02-2022 influenza, high dose seasonal, preservative-free Ba Billingsley Other [employer] Other 10-06-2021 COVID-19 Pfizer Ba veronica Other [facility] 10-06-2021 COVID-19 Vaccine Pfi zer - Documentation Purposes Only Ba Billingsley Other [facility] 03-26-2021 influenza virus vaccine, split virus (incl. purified surface antigen) Ba Billingsley Other [facility] Other 03-26-2021 influenza virus vaccine, unspecified formulation [facility] 03-13-2021 COVID-19 Vaccine Pfi zer - Documentation Purposes Only Ba Billingsley Other [facility] 08-01-2020 COVID-19 Vaccine Pfi zer - Documentation Purposes Only Ba Billingsley Other [facility] 07-11-2020 COVID-19 Vaccine Pfi zer - Documentation Purposes Only Ba Billingsley Other [facility] 02-27-2020 influenza virus vaccine, split virus (incl. purified surface antigen) Ba Billingsley Other [facility] Other 02-27-2020 influenza virus vaccine, unspecified formulation [facility] 03-17-2019 influenza virus vaccine, split virus (incl. purified surface antigen) Ba Billingsley Other [facility] Other 03-17-2019 influenza virus vaccine, unspecified formulation [facility] 03-16-2018 influenza virus vaccine, split virus (incl. purified surface antigen) Ba Billingsley Other [facility] Other 03-16-2018 influenza virus vaccine, unspecified formulation [facility] 11-11-2017 tetanus and diphther ia toxoids, adsorbed, preservative free, for adult use (5 Lf of tetanus toxoid and 2 Lf of diphtheria toxoid) [facility] 11-11-2017 tetanus toxoid, redu wendy diphtheria toxoid, and acellular pertussis vaccine, adsorbed Ba Billingsley Other [facility] Other 03-15-2017 influenza virus vaccine, split virus (incl. purified surface antigen) Ba Billingsley Other [facility] Other 03-15-2017 influenza virus vaccine, unspecified formulation [facility] 03-11-2016 influenza virus vaccine, split virus (incl. purified surface antigen) Ba Billingsley Other [facility] Other 03-11-2016 influenza virus vaccine, unspecified formulation [facility] 01-23-2016 pneumococcal conjuga te vaccine, 13 valent Ba Billingsley Other [facility] 02-26-2015 influenza virus vaccine, split virus (incl. purified surface antigen) Ba Billingsley Other [facility] Other 02-26-2015 influenza virus vaccine, unspecified formulation [facility] 02-21-2014 tetanus and diphther ia toxoids, adsorbed, preservative free, for adult use (5 Lf of tetanus toxoid and 2 Lf of diphtheria toxoid) Ba Billingsley Other [facility] 03-22-2013 tetanus and diphther ia toxoids, adsorbed, preservative free, for adult use (5 Lf of tetanus toxoid and 2 Lf of diphtheria toxoid) Ba Billingsley Other [facility] 01-14-2011 diphtheria, tetanus toxoids and acellular pertussis vaccine, unspecified formulation Ba Billingsley Other [facility] 03-14-2009 pneumococcal polysaccharide vaccine, 23 valent Ba Billingsley Other [facility] Payers Date Payer Category Payer Self-pay 1957 Medicare [id number] 2.1 [id number] 1957 Unknown [id number] 2.16.8 [id number] 1957 Unknown [id number] 1940 Unknown [id number] 2.16.84 [id number] 1940 Unknown [id number] 2.16.84 [id number] 1940 Unknown [id number] 2.16.84 [id number] Medicare [id number] Unknown [id number] Unknown [id number] 2.16.8 [id number] Unknown [id number] 2.16.8 [id number] Unknown [id number] 2.16.8 [id number] Social History Date Type Detail Facility Sex Assigned At [employer] Other Start: 10-13-2023 Tobacco smoking stat [facility] Never smoked tobacco (finding) [facility] Start: 1940 Sex Assigned At Female F [facility] Goals Date Patient Goal Desired Activity /State Clinical Notes 09-10-2022 to 01-04-2024 Note Date & Type Note Facility 01-04-2024 Procedure note [facility] 12-21-2023 Procedure note [facility] 04-06-2023 Evaluation note Encounter Date Diagnosis Assessment Notes Mar, Chronic venous insufficiency (ICD-10 - I87.2) Avoid salt and elevate lower extremities, support stockings, inspect legs and feet daily for blisters and ulcerations. Mar, Essential hypertension (ICD-10 - I10) This patient is instructed to consume a healthy, low-fat, low-salt diet. They are also encouraged to continue exercise to achieve/mainta in a normal BMI. Mar, Mild intermittent asthma without complication (ICD-10 - J45.20) No ER episodes w/ AE Not having to use SUSIE Mar, Obesity (BMI 30.0-34.9) (ICD-10 - E66.9) This patient has been instructed on a low-fat, high-fiber diet. They are instructed to reduce calories, portion sizes and snacks. It is recommended that they exercise for 30 minutes, 3-5 times weekly. Mar, Primary osteoarthritis of left knee (ICD-10 - M17.12) Quad exercises, ice/heat, Tylenol. Fall precautions Offered IA injection or cortisone but she may just schedule appt w/ Orthopedics for Synvisc. Avoid squatting or kneeling Mar, Other obesity due to excess calories (ICD-10 - E66.09) This patient has been instructed on a low-fat, high-fiber diet. They are instructed to reduce calories, portion sizes and snacks. It is recommended that they exercise for 30 minutes, 3-5 times weekly. Mar, Body mass index [BMI] 31.0-31.9, adult (ICD-10 - Z68.31) [employer] Other 05-10-2023 Evaluation note* Encounter Date Diagnosis Assessment Notes Treatment Notes Treatment Clinical Notes October, CHILANGO (obstructive sleep apnea) (ICD-10 - G47.33) AHI 7 w/ hypoxemia < 80% [employer] Other 04-17-2023 Evaluation note* Encounter Date Diagnosis Assessment Notes Treatment Notes Treatment Clinical Notes Sep, Acute non-recurrent sphenoidal sinusitis (ICD-10 - J01.30) Instructed to use Robitussin or Mucinex for cough, saline or Flonase NS for congestion, Tylenol for pain and fever. Sep, Essential hypertension (ICD-10 - I10) This patient is instructed to consume a healthy, low-fat, low-salt diet. They are also encouraged to continue exercise to achieve/maintain a normal BMI. Avoid use of decongestants for symptoms Sep, Mild intermittent asthma without complication (ICD-10 - J45.20) Use of SUSIE as needed for cough, wheezing [facility] Other 03-30-2023 Evaluation note* Encounter Date Diagnosis Assessment Notes Treatment Notes Treatment Clinical Notes Aug, COVID (ICD-10 - U07.1) Instructed to use Robitussin or Mucinex for cough, saline or Flonase NS for congestion, Tylenol for pain and fever. Self isolate at home. - Cannot work - avoid contact with others - avoid pets - wipe counters, door knobs if touched - if can't avoid leaving home, must wear mask to protect others - need to stay isolated for 10 days from onset of symptoms or contact with COVID positive individual - to discontinue isolation must be 10 days AND must be without fever for 24 hours AND symptoms must be improving. Always wear a mask in public places. Aug, Mild intermittent asthma without complication (ICD-10 - J45.20) Monitor for exacerbation, SUSIE as needed. [employer] Other Evaluation note* Diagnosis Onset Date Resolution Status Anxiety, generalized acute Essential hypertension acute Gastroesophageal reflux dise ase with esophagitis without hemorrhage acute Hypercholesterolemia acute Left flank pain acute Mild intermittent asthma without complication acute Obstructive sleep apnea acut e Medicare annual wellness visit, subsequent noneactive [facility] Work Phone: Evaluation note* Diagnosis Onset Date Resolution Status Anxiety, generalized acute Essential hypertension acute Gastroesophageal reflux dise ase with esophagitis without hemorrhage acute Hypercholesterolemia acute Left flank pain acute Mild intermittent asthma without complication acute Obstructive sleep apnea acut e Medicare annual wellness visit, subsequent noneactive Chronic pain acute Left knee pain acute Primary osteoarthritis of left knee acute [facility] Work Phone: Evaluation note* Diagnosis Onset Date Resolution Status Anxiety, generalized acute Essential hypertension acute Gastroesophageal reflux dise ase with esophagitis without hemorrhage acute Hypercholesterolemia acute Left flank pain acute Mild intermittent asthma without complication acute Obstructive sleep apnea acut e Medicare annual wellness visit, subsequent noneactive Chronic pain acute Left knee pain acute Primary osteoarthritis of left knee acute Chronic pain acute Left knee pain acute Primary osteoarthritis of left knee acute [facility] Work Phone: Evaluation note* Diagnosis Onset Date Resolution Status Chronic pain acute Left knee pain acute Primary osteoarthritis of left knee acute Chronic pain acute Left knee pain acute Primary osteoarthritis of left knee acute Chronic pain acute Left knee pain acute Primary osteoarthritis of left knee acute [facility] Work Phone: History general Narrative - Reported* Type Description Date Medical History Cholelithiases Medical History Colon polyp Medical History Anxiety, generalized Medical History Chronic venous insufficiency Medical History Gastroesophageal ref lux disease with esophagitis without hemorrhage Medical History Hyperlipidemia type II Medical History Essential hypertension Medical History Rib pain on right side Medical History Obstructive sleep apnea Medical History Fatigue, unspecified type Medical History Xerosis cutis Medical History Acute costochondritis Medical History Estrogen deficiency Surgical History CHOLECYSTECTOMY Surgical History CATARACT EXTRACTION - BILATERAL Surgical History APPENDECTOMY Surgical History BREAST BIOPSY Hospitalization History SEE SURGICAL HX [employer] Other History general Narrative - Reported* Type Description Date Medical History Cholelithiases Medical History Colon polyp Medical History Anxiety, generalized Medical History Chronic venous insufficiency Medical History Gastroesophageal ref lux disease with esophagitis without hemorrhage Medical History Hyperlipidemia type II Medical History Essential hypertension Medical History Rib pain on right side Medical History Obstructive sleep apnea Medical History Fatigue, unspecified type Medical History Xerosis cutis Medical History Acute costochondritis Medical History Estrogen deficiency Medical History [place] Surgical History CHOLECYSTECTOMY Surgical History CATARACT EXTRACTION - BILATERAL Surgical History APPENDECTOMY Surgical History BREAST BIOPSY Hospitalization History SEE SURGICAL HX iSnap Other Summary Purpose Family History Relationship Condition Age at Onset Recorded Date/T tariq father Heart disease Unknown Malignant neoplasm Unknown Family history of lung cancer Unknown Not Specified Hypertension Unknown sister Malignant neoplasm of breast Unknown Relationship Condition Age at Onset Recorded Date/T tariq father Heart disease Unknown Malignant neoplasm Unknown Family history of lung cancer Unknown mother Hypertension Unknown sister Malignant neoplasm of breast Unknown Advance Directives Advance Directive Response Recorded Date/ Time Advance Directives No July 12, 2023 1:01pm Chief Complaint and Reason for Visit Chief Complaint Medicare Wellness 3 MONTHS Reason for Visit Anxiety, generalized Essential hypertension Gastroesophageal reflux disease with esophagitis without hemorrhage Hypercholesterolemia Left flank pain Mild intermittent asthma without complication Obstructive sleep apnea Medicare annual wellness visit, subsequent Chief Complaint Medicare Wellness [address] PURCELL DISCUSS LT KNEE Reason for Visit Anxiety, generalized Essential hypertension Gastroesophageal reflux disease with esophagitis without hemorrhage Hypercholesterolemia Left flank pain Mild intermittent asthma without complication Obstructive sleep apnea Medicare annual wellness visit, subsequent Chronic pain Left knee pain Primary osteoarthritis of left knee Chief Complaint Medicare Wellness [address] PURCELL DISCUSS LT KNEE Knee Pain Knee Pain Reason for Visit Anxiety, generalized Essential hypertension Gastroesophageal reflux disease with esophagitis without hemorrhage Hypercholesterolemia Left flank pain Mild intermittent asthma without complication Obstructive sleep apnea Medicare annual wellness visit, subsequent Chronic pain Left knee pain Primary osteoarthritis of left knee Chief Complaint Medicare Wellness [address] PURCELL DISCUSS LT KNEE Knee Pain Knee Pain F/U LT GENICULAR NB 1ST Reason for Visit Anxiety, generalized Essential hypertension Gastroesophageal reflux disease with esophagitis without hemorrhage Hypercholesterolemia Left flank pain Mild intermittent asthma without complication Obstructive sleep apnea Medicare annual wellness visit, subsequent Chronic pain Left knee pain Primary osteoarthritis of left knee Chronic pain Left knee pain Primary osteoarthritis of left knee Chief Complaint Medicare Wellness [address] PURCELL DISCUSS LT KNEE Knee Pain Knee Pain F/U LT GENICULAR NB 1ST Knee Pain Knee Pain Reason for Visit Anxiety, generalized Essential hypertension Gastroesophageal reflux disease with esophagitis without hemorrhage Hypercholesterolemia Left flank pain Mild intermittent asthma without complication Obstructive sleep apnea Medicare annual wellness visit, subsequent Chronic pain Left knee pain Primary osteoarthritis of left knee Chronic pain Left knee pain Primary osteoarthritis of left knee Chief Complaint [address] PURCELL DISCUSS LT KNEE Knee Pain Knee Pain F/U LT GENICULAR NB 1ST Knee Pain Knee Pain F/U AFTER 2ND LEFT GENICULAR NERVE BLOCK Reason for Visit Chronic pain Left knee pain Primary osteoarthritis of left knee Chronic pain Left knee pain Primary osteoarthritis of left knee Chronic pain Left knee pain Primary osteoarthritis of left knee Additional Source Comments REASON FOR VISIT (unrecogniz ed section and content) covid [id number] s inus infectionNo Information6 month Follow up INFORMATION SOURCE (unrecogn ized section and content) DATE CREATED AUTHOR 10/22/2022 [facility] DATE CREATED AUTHOR AUTHOR'S ORGANIZ ATION 10/20/2023 [facility] EPIC DATE CREATED AUTHOR AUTHOR'S ORGANIZ ATION 01/17/2024 [facility] Care Teams (unrecognized sec tion and content) Team Status: Active Member Role Status Dates Ba Billingsley DO Primary Care Provider Active Team Status: Inactive Member Role Status Dates Ba Billingsley DO Primary Care Provide r, Attending Provider Active Start: October 13, 2023 End: October 13, 2023 Team Status: Active Member Role Status Dates Ba Billingsley DO Primary Care Provide r, Attending Provider Active Start: October 18, 2023 Team Status: Inactive Member Role Status Dates Ba Billingsley DO Primary Care Provider Active Start: November 22, 2023 End: November 22, 2023 Bobby Purcell II, MD Attending Provider Active Start: November 22, 2023 End: November 22, 2023 Team Status: Inactive Member Role Status Dates Ba Billingsley DO Primary Care Provider Active Start: December 09, 2023 End: December 09, 2023 Fredeom Parra MD Attending Provider Active Sta rt: December 09, 2023 End: December 09, 2023 Team Status: Inactive Member Role Status Dates Ba Billingsley DO Primary Care Provider Active Start: December 21, 2023 End: December 21, 2023 Freedom Parra MD Attending Provider Active Sta rt: December 21, 2023 End: December 21, 2023 Team Status: Active Member Role Status Dates Ba Billingsley DO Primary Care Provider Active Start: December 21, 2023 Freedom Parra MD Attending Provider, Other Provider Active Start: December 21, 2023 Team Status: Inactive Member Role Status Dates Ba Billingsley DO Primary Care Provider Active Start: December 29, 2023 End: December 29, 2023 Freedom Parra MD Attending Provider Active Sta rt: December 29, 2023 End: December 29, 2023 Team Status: Inactive Member Role Status Dates Ba Billingsley DO Primary Care Provider Active Start: January 04, 2024 End: January 04, 2024 Freedom Parra MD Attending Provider Active Sta rt: January 04, 2024 End: January 04, 2024 Team Status: Active Member Role Status Dates Ba Billingsley DO Primary Care Provider Active Start: January 04, 2024 Freedom Parra MD Attending Provider, Other Provider Active Start: January 04, 2024 Team Status: Inactive Member Role Status Dates Ba Billingsley DO Primary Care Provider Active Start: January 21, 2024 End: January 21, 2024 Freedom Parra MD Attending Provider Active Sta rt: January 21, 2024 End: January 21, 2024 Goals (unrecognized section and content) Goals may be documented in a n alternate section FOR RECORDS PERTAINING TO PATIENTS WHO ARE OR HAVE BEEN ENROLLED IN A CHEMICAL DEPENDENCY/SUBSTANCEABUSE PROGRAM, SOME INFORMATION MAY BE OMITTED. This clinical summary was aggregated from multiple sources. Caution should be exercised in using it in the provision of clinical care. This summary normalizes information from multiple sources, and as a consequence, information in this document may materially change the coding, format and clinical context of patient data. In addition, data may be omitted in some cases. CLINICAL DECISIONS SHOULD BE BASED ON THE PRIMARY CLINICAL RECORDS. [facility] [employer] provides no warranty or guarantee of the accuracy or completeness of information in this document.
[2024-01-31 08:48] LABS: Estimated Average Glucose 108 mg/dL; Glycohemoglobin A1C 5.4 % (4.5-6.2)
[2024-01-31 09:00] LABS: Anion Gap 11.7; BUN Creatinine Ratio 23.6; Calcium 9.4 mg/dL (8.5-10.1); Carbon Dioxide 28.1 mmol/L (21.0-32.0); Chloride 103 mmol/L (98-107); Estimated GFR (African America >60 (>=60); Estimated GFR (Non-African Ame >60 (>=60); Glucose 109 mg/dL (74-106); Potassium 3.8 mmol/L (3.5-5.1); Sodium 139 mmol/L (136-145)
[2024-02-01 09:12] LABS: PTH, Intact 33 pg/mL (15-65)
== END 2024-01-31 08:00 | disposition home or self-care (01) ==
LOC: LAB 07:59
PROVIDERS: PCP Internal Medicine; Visit Provider Internal Medicine
DX: E83.52 Hypercalcemia (principal); R73.01 Impaired fasting glucose
CPT/HCPCS: 36415; 80048; 82306; 83036; 83970

== ENCOUNTER 2024-03-23 07:01 | Outpatient (OUT) | payer MEDICARE, OTHER, SELFPAY ==
--- NOTE | 2024-03-23 07:03 | US_ITS ---
The [address] [address] Patient Name: SHANTI ZUNIGA MRN: [id number] date: 1940 Sex: F Assigned Patient Location: US Current Patient Location: Accession/Order Number: [id number] Exam Date: 03/23/2024 07:05 Report Date: 03/23/2024 08:05 At the request of: TIFFANY CLAYTON Procedure: US venous doppler LE BI EXAMINATION: US venous doppler LE BI HISTORY: Edema of lower extremities COMPARISON: No relevant comparison available. FINDINGS: REGION: Bilateral lower extremities. THROMBI: None. COMPRESSIBILITY: Normal compressibility. FLOW: Normal waveform and antegrade flow between 5 and 20 cm/s. OTHER: None. US/US venous doppler LE BI IMPRESSION: 1. No deep vein thrombus within the right or left lower extremity. Electronically authenticated by: MARGARITO MILLER Date: 03/23/2024 08:05
--- OUTSIDE RECORDS SUMMARY | 2024-03-23 07:03 | XMS_ITS | CCD ---
Author Organization [facility] Care Team Providers Care Instrument Technician Name Role Phone Ba Billingsley Unavailable DR CHANO SOTELO Attending Unavailable WEST, DR GUILHERME Mcdonough Consulting Unavailable JOSE CRUZ, DR COSME Primary Care Unavailable SOTELO, DR CHANO Ramos Admitting Unavailable SOTELO, DR CHANO Ramos Consulting Unavailable BALL, DR COSME Attending Unavailable BALL, DR COSME Consulting Unavailable BALL, DR COSME Primary Care Unavailable BALL, DR COSME Admitting Unavailable WEST, DR GUILHERME Mcdonough Consulting Unavailable ERIC ABBASI Attending Unavailable Jose Cruz, DO Cosme Primary Care Provider [phone] MD Freedom Parra Attending Provider [phone] Freedom Parra Attending Unavailable Jose Cruz, Ba Primary Care Unavailable Freedom Parra Admitting Unavailable Freedom Parra Attending Unavailable Jose Cruz, Ba Primary Care Unavailable Freedom Parra Admitting Unavailable Ba Billingsley Primary Care Unavailable Bobby Purcell II Admitting UnavailBobby Spaulding II Attending Unavailchandan e Freedom Parra Attending Unavailable Ba Billingsley Primary Care Unavailable Freedom Prara Admitting Unavailable MALLY POSADA Attending Unavailable BA BILLINGSLEY Primary Care Unavailable MALLY POSADA Referring Unavailable BA BILLINGSLEY Primary Care Unavailable Allergies Allergy Classification Reported Allergen(s) Allergy Type Date of Onset Reaction(s) Facility (4 sources) sulfADIAZINE Drug Allergy Unknown [facility] [employer] Other (4 sources) Sulfamethoxazole / Trimethoprim Drug Allergy Unknown [address] [employer] Other (1 source) Sulfonamides (Antibiotic) Drug allergy (disorder) 04-14-20 [facility] Repository (1 source) sulfADIAZINE Drug Allergy 08-19-19 [facility] Repository (1 source) Sulfamethoxazole Drug Allergy 02-01-20 [facility] Repository (1 source) Trimethoprim Drug Allergy 08-19-19 [facility] Repository (2 sources) Sulfonamides (Antibiotic); Translations: [SULFA (SULFONAMIDE ANTIBIOTICS)] Propensity to adverse reactions to drug (disorder) 10-18-19 [facility] 3 Repository Medications Current Medications Medication Drug Class(es) [...] Active benazepril hydrochloride 20 mg oral tablet (20 sources) Angiotensin Converting Enzyme Inhibitor Start: 08-19-2023 [...] mg / cholecalciferol 800 unt chewable tablet (8 sources) Vitamin D Start: 08-19-2023 take 1 tablet by mouth once daily Calcium Carbonate-Vitamin D3 (Caltrate 600 Plus D) 600 mg-20 mcg (800 unit) tablet,chewable Active 1 TAB PO Daily August 19, 2023 1:00am fluticasone propionate 0.05 mg/actuat metered dose nasal spray (6 sources) Corticosteroid Start: 12-21-2023 take 1 spray(s) nasal route once daily Fluticasone Propionate (24 Hour Allergy Relief) 50 mcg/actuation spray,suspension Active 1 SPRAY INTRANASAL Daily December 21, 2023 12:00am administer into each nostril hydroCHLOROthiazide 25 mg oral tablet (20 sources) Thiazide Diuretic Start: 08-19-2023 End: 10-13-2023 Hydrochlorothiazide Active 25 MG PO Daily October 13, 2023 10:27am [employer] tablet daily Orally Once a day; Note: Source Status: Continue; Provider: Jose Cruz Ramos Start: 08-19-2022 hydroCHLOROthi azide 25 MG 1 tablet daily Orally Once a day Aug, Active ibuprofen 200 mg oral capsule (1 source) Nonsteroidal Anti-inflammatory Drug Start: 02-17-2024 take 200 mg by mouth every six hours Ibuprofen Active 200 MG PO Every 6 hours February 17, 2024 12:00am {20 (nirmatrelvir 150 MG Oral Tablet) / [...] Sig (Original) aspirin 81 mg chewable tablet (8 sources) Platelet Aggregation Inhibitor, Nonsteroidal Anti-inflammatory Drug Start: 08-19-2023 End: 12-21-2023 take 81 mg by mouth once daily Aspirin Discontinued 81 MG PO Daily August 19, 2023 1:00am December 21, 2023 10:19am Problems Active Problems Problem Classification Problem Date Documented Da te Episodic/Chronic Abdominal pain (13 sources) Left flank pain; Translations: [Unspecified abdominal pain] 10-13-2023 Episodic Anxiety disorders (17 sources) Generalized anxiety disorder; Translations: [Generalized anxiety disorder] 08-19-2023 Chronic Asthma (20 sources) Mild intermittent asthma; Translations: [Mild intermittent asthma, uncomplicated] Chronic Biliary tract disease (4 sources) Biliary calculus; Translations: [Calculus of gallbladder without cholecystitis without obstruction] Episodic Diabetes mellitus without complication (8 sources) Impaired fasting glycemia; Translations: [Impaired fasting glucose] 10-18-2023 Episodic Disorders of lipid metabolism (17 sources) Pure hypercholesterolemia ; 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 ] 10-11-2023 Chronic Diverticulosis and diverticulitis (3 sources) Diverticular disease of colon; Translations: [Diverticulosis of colon] Chronic Esophageal disorders (14 sources) Gastro-esophageal reflux disease with esophagitis; Translations: [Gastroesophageal reflux disease with esophagitis without hemorrhage] 08-19-2023 Chronic Essential hypertension (20 sources) Essential hypertension; Translations: [Essential (primary) hypertension] Onset: 10-14-2022 Chronic Gastrointestinal hemorrhage (3 sources) Hematochezia; Translations: [HEMOCCULT POSITIVE STOOL] Episodic Malaise and fatigue (5 sources) Fatigue; Translations: [Other fatigue] Onset: 10-21-2022 Episodic Menopausal disorders (12 sources) Decreased estrogen level; Translations: [Other primary ovarian failure] 10-11-2023 Chronic Osteoarthritis (20 sources) Osteoarthritis of left knee joint; Translations: [Unilateral primary osteoarthritis, left knee] Chronic Other aftercare (1 source) Other intermodal customer service (current) drug therapy; Translations: [OTH PENITENTIARY CURRENT DRUG THERAPY] Onset: 10-21-2022 Episodic Other [...] Translations: [Pleurodynia] Episodic Other nervous system disorders (7 sources) Chronic pain; Translations: [Other chronic pain] 12-09-2023 Chronic Other nervous system disorders (17 sources) Other chronic pain; Translations: [Other chronic pain] Onset: 12-21-2023 12-09-2023 Chronic Other non-traumatic joint disorders (20 sources) Pain in left knee; Translations: [Left knee pain] Onset: 03-17-2024 12-09-2023 Episodic Other nutritional; endocrine; and metabolic [...] Chronic Other nutritional; endocrine; and metabolic disorders (8 sources) Hypercalcemia; Translations: [Hypercalcemia] 10-18-2023 Chronic Other screening for suspected conditions (not mental disorders or infectious disease) (1 source) Encounter for screening mammogram for malignant neoplasm of breast; Translations: [ENC SCR MAMMO MALIG NEOPLASM BREAST] Onset: 10-21-2022 Episodic Other skin disorders (4 sources) Asteatosis cutis; Translations: [Xerosis cutis] Episodic Other upper respiratory infections (1 source) Acute sphenoidal sinusitis, unspecified Episodic Residual codes; unclassified (12 sources) Obstructive sleep apnea syndrome; Translations: [Obstructive [...] Test Name Value Interpretation Reference Range Facility XR KNEE LEFT 4+ VIEWSon XR KNEE LEFT 4+ VIEWS Interpreted By: Jairo De La Cruz, STUDY: XR KNEE LEFT 4+ VIEWS; ; 03/17/2024 1:21 pm INDICATION: Signs/Symptoms:pain. ,M25.562 Pain in left knee COMPARISON: None. ACCESSION NUMBER(S): [id number] ORDERING CLINICIAN: MALLY POSADA FINDINGS: Left knee, four views There is severe tricompartmental joint space narrowing with osteophytosis gross worse in the lateral compartment. There is genu valgum. Several intra-articular bodies present. There is no fracture or dislocation. IMPRESSION: Severe left knee osteoarthritis worse in the lateral compartment with multiple intra-articular ossific bodies MACRO: None Signed by: Jairo De La Cruz 03/18/2024 10:24 AM Dictation workstation: [id number] [facility] Estimated glomerular filtrat ion rate (GFR) non- Americanon 01-31-2024 GFR/1.73 sq M.predicted among non-blacks MDRD (S/P/Bld) [Vol rate/Area] mL/min/{1.73_m2} >=60 [facility] Glucose mean value [Mass/vol ume] in Blood Estimated from glycated hemoglobinon 01-31-2024 Average glucose Estimated from glycated hemoglobin (Bld) [Mass/Vol] 108 mg/dL [facility] Laboratory - Chemistry and C hemistry - challengeon 01-31-2024 Calcium [Mass/Vol] 9.4 mg/dL 8.5-10.1 [facility] Chloride [Moles/Vol] 103 mmol/L 98-107 [facility] CO2 [Moles/Vol] 28.1 mmol/L 21.0-32.0 [facility] Creatinine [Mass/Vol] 0.89 mg/dL 0.55-1.02 [facility] GFR/1.73 sq M.predicted MDRD (S/P/Bld) [Vol rate/Area] mL/min/{1.73_m2} >=60 [facility] Glucose [Mass/Vol] 109 mg/dL High 74-106 [facility] Potassium [Moles/Vol] 3.8 mmol/L 3.5-5.1 [facility] Sodium [Moles/Vol] 139 mmol/L 136-145 [facility] Urea nitrogen [Mass/Vol] 21.0 mg/dL High 7.0-18.0 [facility] Urea nitrogen/Creatinine [Mass ratio] 23.6 mg/mg [facility] Laboratory - Hematology and Cell countson 01-31-2024 HbA1c (Bld) [Mass fraction] 5.4 % 4.5-6.2 [facility] Comment on above: ADA RECOMMENDED LIMI T 4.0 - 6.0ADA THERAPEUTIC TARGET < 7.0ACTION SUGGESTED> 7.0 No Panel Informationon 01-30 25-Hydroxy Vitamin D Total 33.6 ng/mL [facility] Comment on above: <20 ng/mL Vit D defi cient20-<30 ng/mL Vit D [id number] ng/mL Vit D sufficient>100 ng/mL Potential Toxicity Parathyroid Hormone (Intact) 33 pg/mL 15-65 [facility] Comment on above: Performed at: - [employer] [address] [id number] Director: Lowell Alvares PhD, Phone: [phone] Serum or plasma anion gap de terminationon 01-31-2024 Anion gap [Moles/Vol] 11.7 mmol/L [facility] Basophils Auto (Bld) [#/Vol] on 10-18-2023 Basophils (Bld) [#/Vol] 0.1 10 3/uL 0.0-0.1 [facility] Basophils/100 WBC Auto (Bld) on 10-18-2023 Basophils/100 WBC (Bld) 0.6 % 0.2-2.0 [facility] Bilirubin Auto test strip (U ) [Mass/Vol]on 10-18-2023 Bilirubin (U) [Mass/Vol] Negative NEGATIVE [facility] Cholesterol in LDL Calc [Mas s/Vol]on 10-18-2023 Cholesterol in LDL [Mass/Vol] 149.0 mg/dL [facility] Comment on above: <100 mg/dl [id number] 0-129 mg/dl NEAR OR ABOVE [id number] mg/dl BORDERLINE [id number] mg/dl HIGH>190 mg/dl VERY HIGH Cholesterol in VLDL Calc [Ma ss/Vol]on 10-18-2023 Cholesterol in VLDL [Mass/Vol] 15.6 mg/dL [facility] Eosinophils/100 WBC Auto (Bl d)on 10-18-2023 Eosinophils/100 WBC (Bld) 0.4 % Low 0.9-7.0 [facility] Erythrocyte distribution wid th Auto (RBC) [Ratio]on 10-18-2023 Erythrocyte distribution width (RBC) [Ratio] 12.3 % 11.0-15.0 [facility] Estimated glomerular filtrat ion rate (GFR) non- Americanon 10-18-2023 GFR/1.73 sq M.predicted among non-blacks MDRD (S/P/Bld) [Vol rate/Area] 59 mL/min/{1.73_m2} Low >=60 [facility] Globulin Calc (S) [Mass/Vol] on 10-18-2023 Globulin (S) [Mass/Vol] 3.5 g/dL [facility] Hematocrit Auto (Bld) [Volum e fraction]on 10-18-2023 Hematocrit (Bld) [Volume fraction] 42.6 % 36.0-48.0 [facility] Hemoglobin [Mass/volume] in Bloodon 10-18-2023 Hemoglobin (Bld) [Mass/Vol] 13.7 g/dL 12.0-16.0 [facility] Laboratory - Chemistry and C hemistry - challengeon 10-18-2023 Albumin [Mass/Vol] 3.6 g/dL 3.4-5.0 [facility] ALP [Catalytic activity/Vol] 68 U/L 46-116 [facility] ALT [Catalytic activity/Vol] 22 U/L 14-59 [facility] AST [Catalytic activity/Vol] 16 U/L 15-37 [facility] Bilirubin [Mass/Vol] 0.5 mg/dL 0.2-1.0 [facility] Calcium [Mass/Vol] 10.2 mg/dL High 8.5-10.1 [facility] Chloride [Moles/Vol] 101 mmol/L 98-107 [facility] Cholesterol [Mass/Vol] 233 mg/dL High <=200 [facility] Cholesterol in HDL [Mass/Vol] 69 mg/dL High 40-60 [facility] Comment on above: > or =60 mg/dl - LOW CARDIOVASCULAR RISK<40 mg/dl - HIGH CARDIOVASCULAR RISK CO2 [Moles/Vol] 27.7 mmol/L 21.0-32.0 [facility] Creatinine [Mass/Vol] 0.91 mg/dL 0.55-1.02 [facility] GFR/1.73 sq M.predicted MDRD (S/P/Bld) [Vol rate/Area] mL/min/{1.73_m2} >=60 [facility] Glucose [Mass/Vol] 121 mg/dL High 74-106 [facility] Potassium [Moles/Vol] 4.2 mmol/L 3.5-5.1 [facility] Protein [Mass/Vol] 7.1 g/dL 6.4-8.2 [facility] Sodium [Moles/Vol] 137 mmol/L 136-145 [facility] Triglyceride [Mass/Vol] 78 mg/dL <=150 [facility] Urea nitrogen [Mass/Vol] 23.0 mg/dL High 7.0-18.0 [facility] Urea nitrogen/Creatinine [Mass ratio] 25.3 mg/mg [facility] Glucose (U) [Mass/Vol] Negative NEGATIVE [facility] Ketones Ql (U) Negative NEGATIVE [facility] pH (U) 7.0 [pH] 5.0-9.0 [facility] Specific gravity (U) [Rel density] 1.015 1.005-1.025 [facility] Urobilinogen Qn (U) 0.2 {Marlene'U}/dL 0.2-1.0 [facility] Laboratory - Hematology and Cell countson 10-18-2023 Immature granulocytes/100 WBC (Bld) 0.4 % 0.0-0.5 [facility] Laboratory - Specimen inform ationon 10-18-2023 Appearance (U) CLEAR CLEAR [facility] Color (U) LT. YELLOW YELLOW [facility] Laboratory - Urinalysison Leukocyte esterase Test strip Ql (U) Negative NEGATIVE [facility] Nitrite Ql (U) Negative NEGATIVE [facility] Protein Ql (U) Negative NEG/TRACE [facility] Leukocytes [#/volume] correc papa for nucleated erythrocytes in Blood by Automated counon 10-18-2023 WBC corrected for nucl RBC Auto (Bld) [#/Vol] 10.8 10 3/uL 4.0-11.0 [facility] Lymphocytes Auto (Bld) [#/Vo l]on 10-18-2023 Lymphocytes (Bld) [#/Vol] 2.9 10 3/uL 1.2-3.8 [facility] Lymphocytes/100 WBC Auto (Bl d)on 10-18-2023 Lymphocytes/100 WBC (Bld) 26.5 % 20.5-60.0 [facility] MCH Auto (RBC) [Entitic mass ]on 10-18-2023 MCH (RBC) [Entitic mass] 30.2 pg 26.7-34.0 [facility] MCHC Auto (RBC) [Mass/Vol]on 10-18-2023 MCHC (RBC) [Mass/Vol] 32.2 g/dL 29.9-35.2 [facility] MCV Auto (RBC) [Entitic vol] on 10-18-2023 MCV (RBC) [Entitic vol] 93.8 fL 81.0-99.0 [facility] Monocytes Auto (Bld) [#/Vol] on 10-18-2023 Monocytes (Bld) [#/Vol] 0.4 10 3/uL 0.3-0.8 [facility] Monocytes/100 WBC Auto (Bld) on 10-18-2023 Monocytes/100 WBC (Bld) 3.8 % 1.7-12.0 [facility] Neutrophils Auto (Bld) [#/Vo l]on 10-18-2023 Neutrophils (Bld) [#/Vol] 7.4 10 3/uL High 1.4-6.5 [facility] Neutrophils/100 WBC Auto (Bl d)on 10-18-2023 Neutrophils/100 WBC (Bld) 68.3 % 43.0-75.0 [facility] No Panel Informationon 10-17 Eosinophils # (Auto) 0.0 10 3/uL 0.0-0.7 [facility] Immature Granulocyte # (Auto) 0.04 10 3/uL High 0.00-0.03 [facility] Platelet mean volume Auto (B ld) [Entitic vol]on 10-18-2023 Platelet mean volume (Bld) [Entitic vol] 11.1 fL 9.5-13.5 [facility] Platelets Auto (Bld) [#/Vol] on 10-18-2023 Platelets (Bld) [#/Vol] 274 10 3/uL 150-450 [facility] RBC Auto (Bld) [#/Vol]on RBC (Bld) [#/Vol] 4.54 10 6/uL 4.20-5.40 [facility] Serum or plasma albumin/glob ulin mass ratioon 10-18-2023 Albumin/Globulin [Mass ratio] 1.0 {ratio} [facility] Serum or plasma anion gap de terminationon 10-18-2023 Anion gap [Moles/Vol] 12.5 mmol/L [facility] Serum or plasma total choles terol/high density lipoprotein (HDL) cholesterol mass [place] 10-18-2023 Cholesterol.total/Ch olesterol in HDL [Mass ratio] 3.4 {ratio} [facility] Comment on above: 3.3 - 4.4 LOW RISK4. 4 - 7.1 AVERAGE RISK7.1 - 11.0 MODERATE RISK>11.0 HIGH RISK Urine hemoglobin detection b y automated test stripon 10-18-2023 Hemoglobin Auto test strip Ql (U) Negative NEGATIVE [facility] Laboratory - Chemistry and C hemistry - challengeon 10-13-2023 Bilirubin Ql (U) Negative [facility] Glucose (U) [Mass/Vol] Negative [facility] Ketones Ql (U) small [facility] pH (U) 5.0 [pH] [facility] Specific gravity (U) [Rel density] 1.010 [facility] Urobilinogen (U) [Mass/Vol] 0.2 mg/dL [facility] Laboratory - Specimen inform ationon 10-13-2023 Appearance (U) clear [facility] Color (U) yellow [facility] Laboratory - Urinalysison Leukocyte esterase Test strip Ql (U) Negative [facility] Nitrite Ql (U) Negative [facility] Protein Ql (U) Negative [facility] No Panel Informationon 10-12 Urine Occult Blood [facility] XR pelvis 1-2Von 08-19-2023 XR pelvis 1-2V [facility] [place] [address] XRay Report Signed Patient: Shanti Zuniga MR#: [id number] : 1940 Acct:[id number] Age/Sex: 82 / F ADM Date: 08/19/23 [place] [facility]: Type: [facility] Attending Dr: Bobby Purcell II, MD Copies to: Bobby Purcell MD Ordering Provider: Bobby Purcell MD Date of Service: 08/19/23 XR/XR knee LT 4V*: M25.562 - Pain in left knee ([id number]) XR/XR pelvis 1-2V: M25.562 - Pain in [...] Anam Bauer M.D.08/19/2023 2:32 PM Dictation Location: [place] [address] Transcribed By: [facility] 08/19/23 143 Dictated By: Anam Bauer DO 08/19/23 1429 Signed By: 08/19/23 1432 Normal [facility] CBC AUTO DIFFon 10-14-2022 BASO # 0.1 103/ul Normal 0.0-0.1 [facility] Comment on above: Performed By: #### C BC #### [facility] [address] [place] [address] [address] Isaias Zimmer Basophils/100 WBC (Bld) 0.6 % Normal 0.2-2.0 [facility] Comment on above: Performed By: #### C BC #### [facility] [address] [address] [address] Isaias Zimmer EO # 0.1 103/ul Normal 0.0-0.7 [facility] Comment on above: Performed By: #### C BC #### [facility] [address] [address] [address] Isaais Zimmer Eosinophils/100 WBC (Bld) 0.7 % Critically low 0.9-7.0 [facility] Comment on above: Performed By: #### C BC #### [facility] [address] [address] [address] Isaias Zimmer Erythrocyte distribution width (RBC) [Ratio] 12.3 % Normal 11.0-15.0 [facility] Comment on above: Performed By: #### C BC #### [facility] [address] [address] [address] Isaias Zimmer Hematocrit (Bld) [Volume fraction] 43.9 % Normal 36.0-48.0 [facility] Comment on above: Performed By: #### C BC #### [facility] [address] [address] [address] Isaais Zimmer Hemoglobin (Bld) [Mass/Vol] 14.1 g/dL Normal 12.0-16.0 [facility] Comment on above: Performed By: #### C BC #### [facility] [address] [place] [address] Dr. Isaias Zimmer IG # 0.02 10e3/ul Normal 0.00-0.03 [facility] Comment on above: Performed By: #### C BC #### [facility] [address] [place] [address] Dr. Isaias Zimmer IG % 0.2 % Normal 0.0-0.5 [facility] Comment on above: Performed By: #### C BC #### [facility] [address] [place] [address] Dr. Isaias Zimmer LYMPH # 2.4 103/ul Normal 1.2-3.8 [facility] Comment on above: Performed By: #### C BC #### [facility] [address] [place] [address] Dr. Isaias Zimmer Lymphocytes/100 WBC (Bld) 23.0 % Normal 20.5-60.0 [facility] Comment on above: Performed By: #### C BC #### [facility] [address] [place] [address] Dr. Isaias Zimmer MANUAL DIFF REQ NO Normal [facility] Comment on above: Performed By: #### C BC #### [facility] [address] [place] [address] Dr. Isaias Zimmer MCH (RBC) [Entitic mass] 29.6 pg Normal 26.7-34.0 [facility] Comment on above: Performed By: #### C BC #### [facility] [address] [place] [address] Dr. Isaias Zimmer MCHC (RBC) [Mass/Vol] 32.1 g/dL Normal 29.9-35.2 [facility] Comment on above: Performed By: #### C BC #### [facility] [address] [place] [address] Dr. Isaisa Zimmer MCV (RBC) [Entitic vol] 92.2 fL Normal 81.0-99.0 [facility] Comment on above: Performed By: #### C BC #### [facility] [address] [place] [address] Dr. Isaias Zimmer MONO # 0.3 103/ul Normal 0.3-0.8 [facility] Comment on above: Performed By: #### C BC #### [facility] [address] [place] [address] Dr. Isaias Zimmer Monocytes/100 WBC (Bld) 3.1 % Normal 1.7-12.0 [facility] Comment on above: Performed By: #### C BC #### [facility] [address] [place] [address] Dr. Isaias Zimmer NEUT # 7.5 103/ul Critically high 1.4-6.5 [facility] Comment on above: Performed By: #### C BC #### [facility] [address] [place] [address] Dr. Isaias Zimmer Neutrophils/100 WBC (Bld) 72.4 % Normal 43.0-75.0 [facility] Comment on above: Performed By: #### C BC #### [facility] [address] [place] [address] Dr. Isaias Zimmer Platelet mean volume (Bld) [Entitic vol] 11.7 fL Normal 9.5-13.5 [facility] Comment on above: Performed By: #### C BC #### [facility] [address] [place] [address] Dr. Isaias Zimmer PLT 268 103/ul Normal 150-450 [facility] Comment on above: Performed By: #### C BC #### [facility] [address] [place] [address] Dr. Isaias Zimmer RBC 4.76 106/ul Normal 4.20-5.40 [facility] Comment on above: Performed By: #### C BC #### [facility] [address] [place] [address] Dr. Isaias Zimmer WBC 10.3 103/ul Normal 4.0-11.0 [facility] Comment on above: Performed By: #### C BC #### [facility] [address] [place] [address] Dr. Isaias Zimmer MG MAMM SCREEN 3D TU CADon 10-14-2022 MG MAMM SCREEN 3D UT CAD Patient: SHANTI ZUNIGA Exam Date: 10/14/2022 : 1940 Gender:F Ordering : DR BA BILLINGSLEY D.O. Admission #: [id number] Family : Order #: [id number] CLICK HERE TO VIEW EXAM RADIOLOGY REPORT [...] breast cancer at age 52. LOCATION: [facility] BREAST COMPOSITION: Scattered areas fibroglandular density. FINDINGS: [...] Marte MD on 10/14/2022 at 13:52 Normal [facility] PROF CHEM 8 (BAS METB)on Anion gap [Moles/Vol] 12.6 mmol/L Normal [facility] Comment on above: Performed By: #### B LANDON, TSH #### [facility] [address] [address] [address] Isaias Zimmer Calcium [Mass/Vol] 9.5 mg/dL Normal 8.5-10.1 [facility] Comment on above: Performed By: #### B LANDON, TSH #### [facility] [address] [address] [address] Isaias Zimmer Chloride [Moles/Vol] 101 mmol/L Normal 98-107 [facility] Comment on above: Performed By: #### B MP, TSH #### [facility] [address] [address] [address] Isaias Zimmer CO2 [Moles/Vol] 28.5 mmol/L Normal 21.0-32.0 [facility] Comment on above: Performed By: #### B MP, TSH #### [facility] [address] [address] [address] Isaias Zimmer Creatinine [Mass/Vol] 0.91 mg/dL Normal 0.55-1.02 [facility] Comment on above: Performed By: #### B LANDON, TSH #### [facility] [address] [place] [address] Dr. Isaias Zimmer EGFR-AF GREENLANDIC >60 Normal >=60 [facility] Comment on above: Performed By: #### B LANDON, TSH #### [facility] [address] [place] [address] Dr. Isaias Zimmer EGFR-NON AF GREENLANDIC 60 mL/min/1.73m2 Normal >=60 [facility] Comment on above: Performed By: #### B LANDON, TSH #### [facility] [address] [place] [address] Dr. Isaias Zimmer Glucose [Mass/Vol] 116 mg/dL Critically high 74-106 [facility] Comment on above: Performed By: #### B LANDON, TSH #### [facility] [address] [address] [address] Isaias Zimmer Potassium [Moles/Vol] 4.1 mmol/L Normal 3.5-5.1 [facility] Comment on above: Performed By: #### B MP, TSH #### [facility] [address] [address] [address] Isaias Zimmer Sodium [Moles/Vol] 138 mmol/L Normal 136-[address] [facility] Comment on above: Performed By: #### B LANDON, TSH #### [facility] [address] [place] [address] Dr. Isaias Zimmer Urea nitrogen [Mass/Vol] 16.0 mg/dL Normal 7.0-18.0 [facility] Comment on above: Performed By: #### B MP, TSH #### [facility] [address] [address] [address] Isaias Zimmer Urea nitrogen/Creatinine [Mass ratio] 17.6 mg/mg Normal [facility] Comment on above: Performed By: #### B MP, TSH #### [facility] [address] [address] [address] Isaias Zimmer TSHon 10-14-2022 TSH 1.312 uIU/mL Normal 0.358-3.740 [facility] Comment on above: Performed By: #### B MP, TSH #### [facility] [address] [address] [address] Isaias Zimmer XR RIBS RT PA [...] by: GUILHERME MARTE Date: 2022-02-17 11:20 Normal [facility] Vital Signs Date Time Vital Sign Value Performing Clinician Facility 02-01-2024 10:55-0400 Diastolic blood pressure 70 mm[Hg] DO Ba Ball Work Phone: [facility] 02-01-2024 10:55-0400 Heart rate 64 /min DO Ba Ball Work Phone: [facility] 02-01-2024 10:55-0400 Respiratory rate 16 /min DO Ba Ball Work Phone: [facility] 02-01-2024 10:55-0400 SaO2% (BldA) [Mass fraction] 95 % DO Ba Ball Work Phone: [facility] 02-01-2024 10:55-0400 Systolic blood pressure 130 mm[Hg] DO Ba Ball Work Phone: [facility] 02-01-2024 10:17-0400 Inhaled oxygen flow rate 3 L/min DO Ba Ball Work Phone: [facility] 02-01-2024 09:40-0400 Body height 157.48 cm DO Ba Ball Work Phone: [facility] 02-01-2024 09:40-0400 Body weight 75.29 kg DO Ba Ball Work Phone: [facility] 01-04-2024 11:25-0400 Diastolic blood pressure 67 mm[Hg] DO Ba Ball Work Phone: [facility] 01-04-2024 11:25-0400 Heart rate 75 /min DO Ba Ball Work Phone: [facility] 01-04-2024 11:25-0400 Respiratory rate 18 /min DO Ba Ball Work Phone: [facility] 01-04-2024 11:25-0400 SaO2% (BldA) [Mass fraction] 98 % DO Ba Ball Work Phone: [facility] 01-04-2024 11:25-0400 Systolic blood pressure 125 mm[Hg] DO Ba Ball Work Phone: [facility] 01-04-2024 10:12-0400 Body height 157.48 cm DO Ba Ball Work Phone: [facility] 01-04-2024 10:12-0400 Body weight 75.29 kg DO Ba Ball Work Phone: [facility] 12-29-2023 09:08-0400 Body height 157.48 cm DO Ba Ball Work Phone: [facility] 12-29-2023 09:08-0400 Body mass index (BMI) [Ratio] 29.9 kg/m2 DO Ba Ball Work Phone: [facility] 12-29-2023 [id number]:080400 Body weight 74.38 kg DO Ba Ball Work Phone: [facility] 12-21-2023 11:07-0400 Diastolic blood pressure 77 mm[Hg] DO Ba Ball Work Phone: [facility] 12-21-2023 11:07-0400 Heart rate 69 /min DO Ba Ball Work Phone: [facility] 12-21-2023 11:07-0400 Respiratory rate 18 /min DO Ba Ball Work Phone: [facility] 12-21-2023 11:07-0400 SaO2% (BldA) [Mass fraction] 95 % DO Ba Ball Work Phone: [facility] 12-21-2023 11:07-0400 Systolic blood pressure 146 mm[Hg] DO Ba Ball Work Phone: [facility] 12-21-2023 10:20-0400 Body height 157.48 cm DO Ba Ball Work Phone: [facility] 12-21-2023 10:20-0400 Body weight 76.2 kg DO Ba Ball Work Phone: [facility] 10-13-2023 10:09-0400 Body height 157.48 cm [facility] 10-13-2023 10:09-0400 Body mass index (BMI) [Ratio] 31.2 kg/m2 [facility] 10-13-2023 10:09-0400 Body weight 77.56 kg [facility] 10-13-2023 10:09-0400 Diastolic blood pressure 76 mm[Hg] [facility] 10-13-2023 10:09-0400 Heart rate 88 /min [facility] 10-13-2023 10:09-0400 SaO2% (BldA) [Mass fraction] 98 % [facility] 10-13-2023 10:09-0400 Systolic blood pressure 116 mm[Hg] [facility] 04-06-2023 10:00-0400 Body height 157.48 cm Ba Billingsley Other [facility] Other 04-06-2023 10:00-0400 Body mass index (BMI) [Ratio] 31.86 kg/m2 Ba Ball Other [employer] Other 04-06-2023 10:00-0400 Body weight 79.02 kg Ba Ball Other [employer] Other 04-06-2023 10:00-0400 Diastolic blood pressure 73 mm[Hg] Ba Ball Other [facility] [employer] Other 04-06-2023 10:00-0400 Respiratory rate 12 /min Ba Ball Other [facility] [employer] Other 04-06-2023 10:00-0400 Systolic blood pressure 138 mm[Hg] Ba Jose Cruz Other [employer] Other Encounters Encounter Date Encounter Type Care Provider Facility Start: 03-17-2024 End: 03-17-2024 ambulatory [facility] Start: 02-17-2024 End: 02-17-2024 ambulatory DO Ba Billingsley Work Phone: [facility] Work Phone: Start: 02-17-2024 End: 02-17-2024 Patient encounter procedure DO Ba Billingsley Work Phone: [facility] Work Phone: Start: 02-01-2024 Non-patient / Non-visit DO Fortino turcios Jose Cruz Work Phone: [facility] Work Phone: Start: 02-01-2024 End: 02-01-2024 Admission to same day surgery center DO Ba Billingsley Work Phone: [place] Work Phone: Start: 02-01-2024 End: 02-01-2024 ambulatory DO Ba Ball Work Phone: [place] Work Phone: Start: 01-31-2024 Non-patient / Non-visit DO Fortino karolina Ball Work Phone: [facility] Work Phone: Start: 01-21-2024 End: 01-21-2024 ambulatory DO Ba Ball Work Phone: [facility] Work Phone: Start: 01-21-2024 End: 01-21-2024 Patient encounter procedure DO Ba Ball Work Phone: [facility] Work Phone: Start: 01-04-2024 Non-patient / Non-visit DO Fortino karolina Ball Work Phone: [facility] Work Phone: Start: 01-04-2024 End: 01-04-2024 Admission to same day surgery center DO Ba Ball Work Phone: [facility] Work Phone: Start: 01-04-2024 End: 01-04-2024 ambulatory DO Ba Ball Work Phone: [place] Work Phone: Start: 12-29-2023 End: 12-29-2023 ambulatory DO Ba Ball Work Phone: [facility] Work Phone: Start: 12-29-2023 End: 12-29-2023 Patient encounter procedure DO Ba Ball Work Phone: [facility] Work Phone: Start: 12-21-2023 Non-patient / Non-visit DO Fortino karolina Ball Work Phone: [facility] Work Phone: Start: 12-21-2023 End: 12-21-2023 Admission to same day surgery center DO Ba Ball Work Phone: [facility] Work Phone: Start: 12-21-2023 End: 12-21-2023 ambulatory DO Ba Ball Work Phone: [place] Work Phone: Start: 12-09-2023 End: 12-09-2023 ambulatory [facility] Work Phone: Start: 12-09-2023 End: 12-09-2023 Patient encounter procedure [facility] Work Phone: Start: 11-22-2023 End: 11-22-2023 ambulatory [facility] Work Phone: Start: 11-22-2023 End: 11-22-2023 Patient encounter procedure [facility] Work Phone: Start: 10-19-2023 End: 10-19-2023 ambulatory ERIC ELROY Not Available Start: 10-18-2023 Non-patient / Non-visit [facility] [facility] [employer] Work Phone: Start: 10-13-2023 End: 10-13-2023 Patient encounter procedure [facility] Work Phone: Start: 08-19-2023 End: 08-19-2023 ambulatory Ba Ball Facility:[facility] Start: 04-06-2023 End: 04-06-2023 ambulatory Ba Billingsley Other [employer] Other Start: 04-06-2023 Office outpatient vi sit 25 minutes Ba Jose Cruz [facility] Start: 10-21-2022 End: 10-21-2022 ambulatory Ba Ball Other [employer] Other Start: 10-21-2022 Telephone encounter Ba Billingsley [facility] Start: 10-14-2022 End: 10-15-[address] BA BILLINGSLEY Facility:[facility] Start: 09-28-2022 End: 09-28-2022 ambulatory Ba Jose Cruz Other [employer] Other Start: 09-28-2022 Office outpatient vi sit 15 minutes Ba Billingsley [facility] Start: 09-10-2022 End: 09-10-2022 ambulatory Ba Billingsley Other [employer] Other Start: 09-10-2022 Office outpatient vi sit 15 minutes Ba Jose Cruz [facility] Start: 02-17-2022 End: 02-18-[address] CHANO SOTELO Facility:[facility] Procedures Date Procedure Procedure Detail Performing Clinician Start: 02-01-2024 Radiofrequency destr uction of peripheral nerve DO Ba Billingsley Work Phone: Start: 01-04-2024 Local anesthetic ner ve block in lower limb DO Ba Billingsley Work Phone: Start: 12-21-2023 Local anesthetic ner ve block in lower limb DO Ba Billingsley Work Phone: Plan of Treatment Date Care Activity Detail Author Start: 02-01-2024 [facility] Start: 01-04-2024 [facility] Start: 12-21-2023 [facility] Comprehensive metabo lic 2000 panel - Serum or Plasma [facility] Patient Education [facility] Work Phone: Patient referral [facility] Work Phone: [facility] Immunizations Immunization Date Immunization Notes Care Provider Fa sarahty 03-08-2022 COVID-19 Pfizer (bivalent) Ba Billingsley Other [facility] 03-08-2022 COVID-19 Vaccine Pfi zer - Documentation Purposes Only Ba Billingsley Other [facility] 03-02-2022 influenza virus vaccine, split virus (incl. purified surface antigen) Ba Billingsley Other [facility] Other 03-02-2022 influenza virus vaccine, unspecified formulation [facility] 03-02-2022 influenza, high dose seasonal, preservative-free Ba Blilingsley Other [facility] Other 10-06-2021 COVID-19 Pfizer Ba veronica Other [facility] 10-06-2021 COVID-19 Vaccine Pfi zer - Documentation Purposes Only Ba Billingsley Other [facility] 03-26-2021 influenza virus vaccine, split virus (incl. purified surface antigen) Ba Billingsley Other [facility] Other 03-26-2021 influenza virus vaccine, unspecified formulation [facility] 03-13-2021 COVID-19 Vaccine Pfi zer - Documentation Purposes Only Ba Billingsley Other [facility] 08-01-2020 COVID-19 Vaccine Pfi zer - Documentation Purposes Only Ba Billingsley Other [facility] 07-11-2020 COVID-19 Vaccine Pfi zer - Documentation Purposes Only Ba Billingsley Other [facility] 02-27-2020 influenza virus vaccine, split virus (incl. purified surface antigen) Ba Billingsley Other [facility] Other 02-27-2020 influenza virus vaccine, unspecified formulation [facility] 03-17-2019 influenza virus vaccine, split virus (incl. purified surface antigen) Ba Billingsley Other [facility] Other 03-17-2019 influenza virus vaccine, unspecified formulation [facility] 03-16-2018 influenza virus vaccine, split virus (incl. purified surface antigen) Ba Billingsley Other [facility] Other 03-16-2018 influenza virus vaccine, unspecified formulation [facility] 11-11-2017 tetanus and diphther ia toxoids, adsorbed, preservative free, for adult use (5 Lf of tetanus toxoid and 2 Lf of diphtheria toxoid) [facility] 11-11-2017 tetanus toxoid, redu wendy diphtheria toxoid, and acellular pertussis vaccine, adsorbed Ba Billingsley Other [facility] [employer] Other 03-15-2017 influenza virus vaccine, split virus (incl. purified surface antigen) Ba Jose Cruz Other [facility] Other 03-15-2017 influenza virus vaccine, unspecified formulation [facility] 03-11-2016 influenza virus vaccine, split virus (incl. purified surface antigen) Ba Billingsley Other [facility] Other 03-11-2016 influenza virus vaccine, unspecified formulation [facility] 01-23-2016 pneumococcal conjuga te vaccine, 13 valent Ba Billingsley Other [facility] 02-26-2015 influenza virus vaccine, split virus (incl. purified surface antigen) Ba Billingsley Other [facility] Other 02-26-2015 influenza virus vaccine, unspecified formulation [facility] 02-21-2014 tetanus and diphther ia toxoids, adsorbed, preservative free, for adult use (5 Lf of tetanus toxoid and 2 Lf of diphtheria toxoid) Ba Billingsley Other [facility] 03-22-2013 tetanus and diphther ia toxoids, adsorbed, preservative free, for adult use (5 Lf of tetanus toxoid and 2 Lf of diphtheria toxoid) Ba Billingsley Other [facility] 01-14-2011 diphtheria, tetanus toxoids and acellular pertussis vaccine, unspecified formulation Ba Billingsley Other [facility] 03-14-2009 pneumococcal polysaccharide vaccine, 23 valent Ba Billingsley Other [facility] Payers Date Payer Category Payer Self-pay 1957 Medicare [id number] 2.1 [id number] 1957 Unknown [id number] 2.16.8 [id number] 1959 Unknown [id number] 1942 Unknown [id number] 2.16.84 [id number] 1942 Unknown [id number] 2.16.84 [id number] 1942 Unknown [id number] 2.16.84 [id number] 1942 Unknown [id number] 2.16. [id number] 1942 Unknown [id number] 2.16.8 [id number] Medicare [id number] [id number] Unknown [id number] [id number] Unknown [id number] 2.16.8 [id number] Unknown [id number] 2.16.8 [id number] Unknown [id number] 2.16.8 [id number] Unknown [id number] 2.16.8 [id number] Social History Date Type Detail Facility Sex Assigned At [employer] Other Start: 10-13-2023 End: 02-01-2024 Tobacco smoking status NHIS Never smoked tobacco (finding) [facility] Start: 1940 Sex Assigned At Female F [facility] Goals Date Patient Goal Desired Activity /State Clinical Notes 09-10-2022 to 02-01-2024 Note Date & Type Note Facility 02-01-2024 Procedure note [facility] 01-04-2024 Procedure note [facility] 12-21-2023 Procedure note [facility] 04-06-2023 Evaluation note Encounter Date Diagnosis Assessment [...] index [BMI] 31.0-31.9, adult (ICD-10 - Z68.31) [employer] Other 05-10-2023 Evaluation note* Encounter Date Diagnosis Assessment Notes Treatment Notes Treatment Clinical Notes October, CHILANGO (obstructive sleep apnea) (ICD-10 - G47.33) AHI 7 w/ hypoxemia < 80% [employer] Other 04-17-2023 Evaluation note* Encounter Date Diagnosis [...] of SUSIE as needed for cough, wheezing [employer] Other 03-30-2023 Evaluation note* Encounter Date Diagnosis [...] J45.20) Monitor for exacerbation, SUSIE as needed. [employer] Other Evaluation note* Diagnosis Onset Date Resolution Status Anxiety, generalized acute Essential hypertension acute Gastroesophageal reflux dise ase with esophagitis without hemorrhage acute Hypercholesterolemia acute Left flank pain acute Mild intermittent asthma without complication acute Obstructive sleep apnea acut e Medicare annual wellness visit, subsequent noneactive [facility] Work Phone: Evaluation note* Diagnosis Onset Date Resolution Status Anxiety, generalized acute Essential hypertension acute Gastroesophageal reflux dise ase with esophagitis without hemorrhage acute Hypercholesterolemia acute Left flank pain acute Mild intermittent asthma without complication acute Obstructive sleep apnea acut e Medicare annual wellness visit, subsequent noneactive Chronic pain acute Left knee pain acute Primary osteoarthritis of left knee acute [facility] Work Phone: Evaluation note* Diagnosis Onset Date [...] acute Primary osteoarthritis of left knee acute [facility] Work Phone: Evaluation note* Diagnosis Onset Date Resolution Status Chronic pain acute Left knee pain acute Primary osteoarthritis of left knee acute Chronic pain acute Left knee pain acute Primary osteoarthritis of left knee acute Chronic pain acute Left knee pain acute Primary osteoarthritis of left knee acute [facility] Work Phone: Evaluation note* Diagnosis Onset Date Resolution Status Chronic pain acute Left knee pain acute Primary osteoarthritis of left knee acute Chronic pain acute Left knee pain acute Primary osteoarthritis of left knee acute Chronic pain acute Left knee pain acute Primary osteoarthritis of left knee acute Chronic pain acute Left knee pain acute Primary osteoarthritis of left knee acute [facility] Work Phone: History general Narrative - Reported* [...] History BREAST BIOPSY Hospitalization History [facility] [employer] Other History general Narrative - Reported* Type [...] History BREAST BIOPSY Hospitalization History [facility] [employer] Other Summary Purpose Family History No Family History Records Found Relationship Condition Age at Onset Recorded Date/T tariq father Heart disease Unknown Malignant neoplasm Unknown Family history of lung cancer Unknown Not Specified Hypertension Unknown sister Malignant neoplasm of breast Unknown Relationship Condition Age at Onset Recorded Date/T tariq father Heart disease Unknown Malignant neoplasm Unknown Family history of lung cancer Unknown mother Hypertension Unknown sister Malignant neoplasm of breast Unknown Advance Directives No Advanced Directives Records Found Advance Directive Response Recorded Date/ Time Advance [...] F/U AFTER 2ND LEFT GENICULAR NERVE BLOCK Knee Pain Knee Pain Reason for Visit Chronic pain Left knee pain Primary osteoarthritis of left knee Chronic pain Left knee pain Primary osteoarthritis of left knee Chronic pain Left knee pain Primary osteoarthritis of left knee Chief Complaint [address] PURCELL DISCUSS LT KNEE Knee Pain Knee Pain F/U LT GENICULAR NB 1ST Knee Pain Knee Pain F/U AFTER 2ND LEFT GENICULAR NERVE BLOCK Knee Pain Knee Pain F/U LEFT GENICULAR RFA Reason for Visit Chronic pain Left knee pain Primary osteoarthritis of left knee Chronic pain Left knee pain Primary osteoarthritis of left knee Chronic pain Left knee pain Primary osteoarthritis of left knee Chronic pain Left knee pain Primary osteoarthritis of left knee Additional Source Comments REASON FOR VISIT (unrecogniz ed section and content) covid [id number] s inus infectionNo Information6 month Follow up INFORMATION SOURCE (unrecogn ized section and content) DATE CREATED AUTHOR 10/22/2022 [facility] DATE CREATED AUTHOR AUTHOR'S ORGANIZ ATION 10/20/2023 [facility] EPIC DATE CREATED AUTHOR AUTHOR'S ORGANIZ ATION 02/15/2024 [facility] DATE CREATED AUTHOR AUTHOR'S ORGANIZ ATION 03/19/2024 [facility] DATE CREATED AUTHOR AUTHOR'S ORGANIZ ATION 03/20/2024 [facility] Care Teams (unrecognized sec tion and content) [...] December 09, 2023 End: December 09, 2023 Freedom Parra MD Attending Provider Active [...] 2024 Team Status: Active Member Role Status Talia Billingsley DO Primary Care Provider Active Start: January 04, 2024 Freedom Parra MD Attending Provider, Other Provider Active Start: January 04, 2024 Team Status: Inactive Member Role Status Talia Billingsley DO Primary Care Provider Active Start: January 21, 2024 End: January 21, 2024 Freedom Parra MD Attending Provider Active Sta rt: January 21, 2024 End: January 21, 2024 Team Status: Active Member Role Status Talia Billingsley DO Primary Care Provide r, Attending Provider Active Start: January 31, 2024 Team Status: Inactive Member Role Status Talia Billingsley DO Primary Care Provider Active Start: February 01, 2024 End: February 01, 2024 Freedom Parra MD Attending Provider Active Sta rt: February 01, 2024 End: February 01, 2024 Team Status: Active Member Role Status Talia Billingsley DO Primary Care Provider Active Start: February 01, 2024 Freedom Parra MD Attending Provider, Other Provider Active Start: February 01, 2024 Team Status: Inactive Member Role Status Dates Ba Billingsley DO Primary Care Provider Active Start: February 17, 2024 End: February 17, 2024 Freedom Parra MD Attending Provider Active Sta rt: February 17, 2024 End: February 17, 2024 Goals (unrecognized section and content) Goals [...] BE BASED ON THE PRIMARY CLINICAL RECORDS. [facility] [employer] [facility]. provides no warranty or guarantee of the accuracy or completeness of information in this document.
--- NOTE | 2024-03-23 08:00 | CA_ITS ---
Patient Name: SHANTI ZUNIGA MR#: [id number] : 1940 Exam Date: 03/23/2024 Ordering Doctor: DR Ba Billingsley D.O. ECHOCARDIOGRAM REPORT PROCEDURE: CA ECHO DOPPLER COMPLETE INDICATIONS: Heart murmur, hypertension COMPARISON: None. DESCRIPTION: COMPLETE ECHOCARDIOGRAM Real-time transthoracic echocardiography with 2D, M-mode, spectral and color flow Doppler performed. QUALITY: Technical quality was adequate. LEFT VENTRICLE: Normal chamber size. Thickened septal wall. Systolic function is normal. LV EF: Normal left ventricular ejection fraction, (>55%). DIASTOLIC: Grade II diastolic dysfunction. ATRIAL SEPTUM: Visually appears intact. LEFT ATRIUM: Mild dilatation. RIGHT ATRIUM: Normal chamber size. RIGHT VENTRICLE: Normal chamber size. Normal right ventricular systolic function. TRICUSPID VALVE: Normal mobility and thickness. No stenosis with mild to moderate regurgitation. No evidence of pulmonary hypertension. RVSP 32 mmHg MITRAL VALVE: Normal mobility and thickness. No evidence of mitral valve stenosis. Mild mitral annular calcification. No mitral regurgitation. AORTIC VALVE: Normal trileaflet appearance. Normal leaflet mobility. No evidence of aortic valve stenosis. Multifocal calcifications. No aortic regurgitation. AORTIC ROOT: Normal diameter and appearance. Ascending aorta is normal in size. PULMONIC VALVE: Normal thickness and mobility. No stenosis. Trivial regurgitation. PERICARDIUM: Trivial pericardial effusion. IVC: Within normal limits. PLEURA: CONCLUSION: 1. Normal left ventricular size and systolic function. LVEF is 55 to 60%. 2. Normal right ventricular size and systolic function. 3. Grade 2 diastolic dysfunction. 4. Mild to moderate tricuspid regurgitation. 5. Normal right-sided pressures. Adult Echocardiography Procedure Report Left Ventricle LVEDD (3.7 - 5.6 cm): 3.83 cm LVESD (2.2 - 4.0 cm): 2.36 cm LVIVS thickness (0.6 - 1.2 cm): 1.47 cm LVPW thickness (0.5 - 1.0 cm): 1.05 cm e': 0.05 m/s E - e': 17.11 LVOT Max Gradient: 1.79 mm[Hg] LVOT Area (cm2): 0.67 m/s Peak Velocity (LVOT): 0.67 m/s Mean Velocity (LVOT): 0.41 m/s LVOT Diameter 2.21 cm Left Atrium LA Volume Index (2D A2C): 42.89 ml/m2 Left Atrium Systolic Dimension: 3.92 cm Mitral Valve MV E to A Ratio: 0.86 Mitral Valve A-Wave Peak Velocity: 1.04 m/s Mitral Valve E-Wave Peak Velocity: 0.89 m/s Right Ventricle Aorta AO Root Diam: 3.31 cm Ascending Ao Diam: 3.00 cm Aortic Valve AoV Area (Peak Hero): 2.58 cm2, 2.58 cm2 AoV Area (VTI): 2.98 cm2, 2.98 cm2 Peak Velocity(Antegrade Flow): 1.00 m/s Peak Gradient(Antegrade Flow): 3.98 mm[Hg] Mean Velocity(Antegrade Flow): 0.65 m/s Mean Gradient(Antegrade Flow): 1.92 mm[Hg] Velocity Time Integral: 20.09 cm Tricuspid Valve Peak Velocity (Regurgitant Flow): 2.19 m/s, 2.71 m/s Pulmonic Valve Mean Gradient: 1.85 mm[Hg] Mean Velocity: 0.65 m/s Peak Velocity: 0.88 m/s, 0.87 m/s Peak Gradient: 3.03 mm[Hg], 3.09 mm[Hg] Right Atrium Right Atrium Systolic Pressure: 34.87 ml, 34.87 ml Dictated by: Tonny Simms M.D. on 03/23/2024 at 15:12 Approved by: Tonny Simms M.D. on 03/23/2024 at 15:16
== END 2024-03-23 07:02 | disposition home or self-care (01) ==
LOC: US 07:01
PROVIDERS: PCP Internal Medicine; Visit Provider Internal Medicine
DX: R01.1 Cardiac murmur, unspecified (principal); R60.0 Localized edema; I87.2 Venous insufficiency (chronic) (peripheral)
CPT/HCPCS: 93306; 93970

== ENCOUNTER 2024-05-05 12:37 | Outpatient (OUT) | payer MEDICARE, OTHER, SELFPAY ==
--- OUTSIDE RECORDS SUMMARY | 2024-05-05 12:43 | XMS_ITS | CCD ---
Author Organization [facility] Care Team Providers Care Cork Compounder Name Role Phone Ba Billingsley Unavailable DEEPAK, DR CHANO Ramos Attending Unavailable WEST, DR GUILHERME Mcdonough Consulting Unavailable BALL, DR COSME Primary Care Unavailable SOTELO, DR CHANO Ramos Admitting Unavailable SOTELO, DR HCANO Ramos Consulting Unavailable BALL, DR COSME Attending Unavailable BALL, DR COSME Consulting Unavailable BALL, DR COSME Primary Care Unavailable BALL, DR COSME Admitting Unavailable ROSANNA, DR GUILHERME Mcdonough Consulting Unavailable ERIC ABBASI Attending Unavailable Jose Cruz, DO Cosme Primary Care Provider [phone] MD Freedom Parra Attending Provider Freedom Parra Attending Unavailable Jose Cruz, Ba Primary Care Unavailable Freedom Parra Admitting Unavailable Freedom Parra Attending Unavailable Jose Cruz, Ba Primary Care Unavailable Freedom Parra Admitting Unavailable Ba Billingsley Primary Care Unavailable Bobby Purcell II Admitting UnavailBobby Spaulding II Attending UnavailFreedom Barker Attending Unavailable Ba Billingsley Primary Care Unavailable Freedom Parra Admitting Unavailable Ball Ba CERVANTES Primary Care Provider DO Ba Billingsley Primary Care Provider [phone] MD Freedom Parra Attending Provider MALLY POSADA Attending Unavailable BALL, BA E Primary Care Unavailable BALL, BA E Primary Care Unavailable JOSE LANDERS Attending Unavailable OHMALLY RAYMOND Attending Unavailable BALL, BA E Primary Care Unavailable OHLIGER, MALLY Ramos Referring Unavailable BALL, BA E Primary Care Unavailable BALL, BA E Primary Care Unavailable OHLIGER, MALLY Ramos Referring Unavailable BALL, BA E Primary Care Unavailable OHLIGER, MALLY Ramos Referring Unavailable BALL, BA E Primary Care Unavailable OHLIGER, MALLY E Referring Unavailable BALL, BA E Primary Care Unavailable Allergies Allergy Classification Reported Allergen(s) Allergy Type Date of Onset Reaction(s) Facility (4 sources) sulfADIAZINE Drug Allergy Unknown [facility] Other (4 sources) Sulfamethoxazole / Trimethoprim Drug Allergy Unknown [facility] Other (1 source) Sulfonamides (Antibiotic) Drug allergy (disorder) 04-14-20 17 [facility] Repository (1 source) sulfADIAZINE Drug Allergy 08-19-19 [facility] Repository (1 source) Sulfamethoxazole Drug Allergy 02-01-20 [facility] Repository (1 source) Trimethoprim Drug Allergy 08-19-19 [facility] Repository (10 sources) Sulfonamides (Antibiotic); Translations: [SULFA (SULFONAMIDE ANTIBIOTICS)] Drug Intolerance 10-18-19 [facility] Work Phone: (8 sources) Adhesive Tape-Silicones; Translations: [ADHESIVE TAPE-SILICONES] Propensity to adverse reactions 04-04-20 [facility] Medications Current Medications Medication Drug Class(es) Dates Sig (Normalized) Sig (Original) acetaminophen 325 mg oral tablet (8 sources) Start: 04-11-2024 take 650 mg by mouth every six hours as needed for pain 650 mg, oral, Every 6 hours scheduled, First dose on Wed04/11/24 at 1200, Phase II/On Unit, If ordered PRN for pain, nurse is permitted to administer this medication for higher pain scores based on patient preference? Yes Start: 04-11-2024 End: 04-11-2024 take 975 mg by mouth once as needed for pain 975 mg, oral, Once, On Wed04/11/24 at 0600, For 1 dose, Preprocedure, If ordered PRN for pain, nurse is permitted to administer this medication for higher pain scores based on patient preference? Yes take 1 tablet by magan th every twenty-four hours as needed acetaminophen (Tylenol 8 HOUR) 650 mg ER tablet Take 1 tablet (650 mg) by mouth once daily as needed for mild pain (1 - 3). Do not crush, chew, or split. Active amLODIPine 5 mg oral tablet (20 sources) Dihydropyridine Calcium Channel Maximilian Start: 10-13-2023 take 1 tablet by mouth once daily Amlodipine 5 mg tablet Active 5 MG PO Daily October 13, 2023 9:26am On Hold: None Start: 09-10-2023 End: 10-13-2023 Amlodipine 5 mg tablet Disco ntinued 0 .ROUTE .COMPLEX September 10, 2023 11:55am October 13, 2023 9:27am TAKE 1 TABLET DAILY Start: 09-10-2023 End: 10-13-2023 Amlodipine Discontinued 0 .R OUTE .COMPLEX September 10, 2023 12:55pm October 13, 2023 10:27am TAKE 1 TABLET DAILY Start: 08-19-2023 End: 09-10-2023 take 1 tablet by mouth once daily Amlodipine 5 mg tablet Discontinued 1 TAB PO Daily August 19, 2023 12:00am September 10, 2023 11:55am [employer] tablet Orally Once a day; Note: Source Status: Continue; Provider: Jose Cruz Ramos aspirin 81 mg delayed release oral tablet (18 sources) Platelet Aggregation Inhibitor, Nonsteroidal Anti-inflammatory Drug Start: 04-11-2024 End: 05-12-2024 Aspirin (Adult Low Dose Aspirin) 81 mg tablet,delayed release (DR/EC) Active 81 MG PO Twice daily May 02, 2024 12:00am Start: 08-19-2023 End: 12-21-2023 take 1 tablet by mouth once daily Aspirin 81 mg tablet,chewable Discontinued 81 MG PO Daily August 19, 2023 12:00am December 21, 2023 9:19am take 1 tablet by magan th once daily aspirin 81 mg EC tablet Take 1 tablet (81 mg) by mouth once daily. Active azithromycin 250 mg oral tablet (1 source) Macrolide Antimicrobial Start: 09-28-2022 Azithromycin 250 MG as directed Orally daily for 5 days Sep, Active benazepril hydrochloride 40 mg oral tablet (20 sources) Angiotensin Converting Enzyme Inhibitor Start: 04-03-2024 take 1 tablet by mouth once daily Benazepril 40 mg tablet Active 40 MG PO Daily April 03, 2024 3:15pm Start: 03-20-2024 End: 04-03-2024 take 1 tablet by mouth once daily Benazepril Discontinued 40 MG PO Daily April 03, 2024 12:46pm April 03, 2024 4:16pm [employer] tablet Orally Once a day; Note: Source Status: Continue; Provider: Jose Cruz Ramos Start: 08-05-2022 End: 04-03-2024 take 1 tablet by mouth once daily Benazepril 20 mg tablet Discontinued 40 MG PO Daily 180 90 April 03, 2024 11:46am April 03, 2024 3:16pm [employer] tablet Orally Once a day; Note: Source Status: Continue; Provider: Jose Cruz Ramos take 2 tablets by [facility] once daily benazepril (Lotensin) 20 mg tablet Take 2 tablets (40 mg) by mouth once daily. Active benzocaine 15 mg / menthol 3.6 mg oral lozenge (1 source) Standardized Chemical Allergen Start: 04-11-2024 bisacodyl 5 mg delayed release oral tablet (1 source) Stimulant Laxative Start: 04-11-2024 take 1 tablet by mouth every twenty-four hours as needed calcium carbonate 1500 mg / cholecalciferol 800 unt chewable tablet (11 sources) Vitamin D Start: 08-19-2023 take 1 tablet by mouth once daily Calcium Carbonate-Vitamin D3 (Caltrate 600 Plus D) 600 mg-20 mcg (800 unit) tablet,chewable Active 1 TAB PO Daily August 19, 2023 12:00am Calcium Carbonate / vitamin D3 (6 sources) take 1 tablet by mouth once daily calcium carbonate/vitamin D3 (CALTRATE WITH VITAMIN D3 ORAL) Take 1 tablet by mouth once daily. Active calcium chloride 0.0014 meq/ml / potassium chloride 0.004 meq/ml / sodium chloride 0.103 meq/ml / sodium lactate 0.028 meq/ml injectable solution (2 sources) Start: 04-11-2024 End: 04-12-2024 take 50 mL intravenously every hour 50 mL/hr, intravenous, Continuous, Starting on Wed04/11/24 at 1145, For 24 hours, Phase II/On Unit chlorhexidine gluconate 1.2 mg/ml mouthwash (2 sources) Start: 04-10-2024 End: 04-12-2024 cyclobenzaprine hydrochloride 5 mg oral tablet (2 sources) Muscle Relaxant Start: 04-12-2024 End: 04-19-2024 take 1 tablet by mouth three times daily as needed for muscle spasms cyclobenzaprine (Flexeril) 5 mg tablet Indications: S/P total knee arthroplasty, left Take 1 tablet (5 mg) by mouth 3 times a day as needed for muscle spasms for up to 7 days. 21 tablet 04/12/2024 10:58 AM EDT 04/12/2024 04/19/2024 Active Start: 04-11-2024 diphenhydrAMINE hydrochloride 2.5 mg/ml oral solution (1 source) Histamine-1 Receptor Antagonist Start: 04-11-2024 take 12.5 mg by mouth every six hours as needed docusate sodium 100 mg oral capsule (1 source) Start: 04-12-2024 End: 04-22-2024 take 1 capsule by mouth twice daily docusate sodium (Colace) 100 mg capsule Indications: S/P total knee arthroplasty, left Take 1 capsule (100 mg) by mouth 2 times a day for 10 days. 20 capsule 04/12/2024 10:58 AM EDT 04/12/2024 04/22/2024 Active fluticasone propionate 0.05 mg/actuat metered dose nasal spray (16 sources) Corticosteroid Start: 04-11-2024 1 spray, Each Nostril, Nightly, First dose on Wed04/11/24 at 2100, Shake gently. Before first use, prime pump (press 6 times until fine spray appears). After use, clean tip and replace cap. Start: 12-21-2023 take 1 spray(s) nasa l route once daily as needed Fluticasone Propionate (24 Hour Allergy Relief) 50 mcg/actuation spray,suspension Active 1 SPRAY INTRANASAL Daily as needed for allergy symptoms December 20, 2023 11:00pm administer into each nostril furosemide 40 mg oral tablet (15 sources) Loop Diuretic Start: 04-11-2024 Start: 03-20-2024 End: 04-05-2024 take 1 tablet by mouth once daily Furosemide 20 mg tablet Discontinued 20 MG PO Daily March 20, 2024 12:15pm April 03, 2024 12:05pm 0.5 ml HYDROmorphone hydrochloride 1 mg/ml prefilled syringe (1 source) Opioid Agonist Start: 04-11-2024 take 0.5 mg intravenously every four hours as needed ibuprofen 200 mg oral capsule (12 sources) Nonsteroidal Anti-inflammatory Drug Start: 02-17-2024 End: 03-20-2024 take 1 capsule by mouth every six hours as needed for pain Ibuprofen 200 mg capsule Active 200 MG PO Every 6 hours as needed for pain March 20, 2024 7:22pm On Hold: None take 2 tablets by mo [facility] every eight hours as needed ibuprofen 200 mg tablet Take 2 tablets (400 mg) by mouth every 8 hours if needed for mild pain (1 - 3). Active lisinopril 20 mg oral tablet (1 source) Angiotensin Converting Enzyme Inhibitor Start: 04-11-2024 Miscellaneous Medical Supply (1 source) Start: 03-27-2024 Miscellaneous Medical Supply Active 0 .Route March 27, 2024 12:00am As directed Miscellaneous Medical Supply misc (1 source) Start: 03-27-2024 Miscellaneous Medical Supply misc Active 0 .Route March 26, 2024 11:00pm As directed 1 ml morphine sulfate 2 mg/ml prefilled syringe (1 source) Opioid Agonist Start: 04-11-2024 Naloxone (3 sources) Opioid Antagonist Start: 04-11-2024 naloxone (Na rcan) 4 mg/0.1 mL nasal spray Instill 1 spray intranasally for opioid overdose; repeat in 5 minutes if no response. 2 each 04/12/2024 10:58 AM EDT 04/11/2024 Active Start: 04-11-2024 ondansetron ODT (Zofran-ODT) disintegrating tablet 4 mg (1 source) Start: 04-11-2024 take 1 tablet by mouth every eight hours as needed ondansetron ODT (Zofran-ODT) disintegrating tablet 4 mg oxyCODONE hydrochloride 5 mg oral tablet (3 sources) Opioid Agonist Start: 04-12-2024 End: 04-19-2024 take 1 tablet by mouth every six hours for pain oxyCODONE (Roxicodone) 5 mg immediate release tablet Indications: S/P total knee arthroplasty, left Take 1 tablet (5 mg) by mouth every 6 hours if needed for severe pain (7 - 10) for up to 7 days. 28 tablet 04/12/2024 10:58 AM EDT 04/12/2024 04/19/2024 Active Start: 04-11-2024 take 1 tablet by magan every four hours as needed 5 mg, oral, Every 4 hours PRN, pain mild (1-3), first line, Starting on Wed04/11/24 at 1119, Phase II/On Unit, If ordered PRN for pain, nurse is permitted to administer this medication for higher pain scores based on patient preference? Yes Start: 04-11-2024 take 1 tablet by magan th every six hours as needed oxygen (O2) therapy (1 source) Start: 04-11-2024 polyethylene glycol 3350 28586 mg powder for oral solution (1 source) Osmotic Laxative Start: 04-11-2024 17 g, oral, Daily, First dose on Wed04/11/24 at 1145, Phase II/On Unit, Bowel Regimen - for prevention of constipation. {20 (nirmatrelvir 150 MG Oral Tablet) / 10 (ritonavir 100 MG Oral Tablet) } Pack [Paxlovid 5-Day] (2 sources) Start: 09-10-2022 take 3 tablets by mouth every twelve hours Paxlovid (300/100) 20 x 150 MG & 10 x 100MG 3 tablets Orally Twice a day for 5 day(s) Aug, Active Completed/Discontinued Medications Medication Drug Class(es) Dates Sig (Normalized) Sig (Original) ceFAZolin 2000 mg injection (1 source) Cephalosporin Antibacterial Start: 04-11-20 End: 04-12-20 take 2 g intravenously every eight hours 2 g, intravenous, Administer over 30 Minutes, Every 8 hours, First dose on Wed04/11/24 at 1600, For 2 doses, Phase II/On Unit, Start 8 hours after pre-op dose given. premix bag, Dosing of this medication varies based on severity of illness. Does this patient have sepsis or concern for sepsis (probable or documented infection plus systemic manifestations of infection)? No, Suspected Indication (Select all that apply): Surgical Prophylaxis, Indications: Surgical Prophylaxis celecoxib 200 mg oral capsule (1 source) Nonsteroidal Anti-inflammatory Drug Start: 04-11-20 End: 04-11-20 take 1 capsule by mouth once 400 mg, oral, Once, On Wed04/11/24 at 0600, For 1 dose, Preprocedure, Capsules may be opened and sprinkled on a spoonful of cold or room temperature applesauce. dexAMETHasone (PF) (Decadron) 5 mg, ropivacaine (Naropin) 5 mg/mL (0.5 %) 100 mg injection (1 source) Start: 04-11-20 End: 04-11-20 injection, Once, On Wed04/11/24 at 0600, For 1 dose, Intraprocedure gabapentin 300 mg oral capsule (1 source) Anti-epileptic Agent Start: 04-11-20 End: 04-11-20 take 1 capsule by mouth once 600 mg, oral, Once, On Wed04/11/24 at 0600, For 1 dose, Preprocedure, Capsules may be opened and sprinkled on food (eg, applesauce, orange juice, pudding hydroCHLOROthiazide 25 mg oral tablet (20 sources) Thiazide Diuretic Start: 08-20-19 End: 10-13-19 Hydrochlorothiazide 25 mg tablet Discontinued MG PO August 19, 2023 12:00am October 13, 2023 9:27am [employer] tablet daily Orally Once a day; Note: Source Status: Continue; Provider: Jose Cruz Ramos povidone-iodine 50 mg/ml topical solution (1 source) Antiseptic Start: 04-11-20 End: 04-11-20 Topical, Once, On Wed04/11/24 at 0600, For 1 dose, Preprocedure, Apply povidone iodine 5% to surgical area and bilateral nares (unless allergic) in pre-op the morning of surgery. 20 ml ropivacaine hydrochloride 5 mg/ml injection (1 source) Amide Local Anesthetic Start: 04-11-20 End: 04-11-20 100 mg (20 mL), injection, Once, On Wed04/11/24 at 0730, For 1 dose, Intraprocedure tranexamic acid 650 mg oral tablet (3 sources) Antifibrinolytic Agent Start: 04-11-20 End: 04-11-20 take 1 dose by mouth every six hours 1,950 mg, oral, Once, On Wed04/11/24 at 1145, For 1 dose, Recovery & On Unit, First dose administered 6 hours post procedure. Do not crush, chew, or split., Tranexamic Acid Indication: Surgical Prophylaxis: Orthopedic Start: 04-11-2024 End: 04-12-2024 1,950 mg, oral, Once, On Wed04/12/24 at 0600, For 1 dose, Phase II/On Unit, Second dose administered post-op day 1 at 0600. Do not crush, chew, or split., Tranexamic Acid Indication: Surgical Prophylaxis: Orthopedic Problems Active Problems Problem Classification Problem Date Documented Da te Episodic/Chronic Abdominal pain (16 sources) Left flank pain; Translations: [Unspecified abdominal pain] 10-13-2023 Episodic Anxiety disorders (20 sources) Generalized anxiety disorder; Translations: [Generalized anxiety disorder] Onset: 04-10-2024 08-19-2023 Chronic Asthma (20 sources) Mild intermittent asthma; Translations: [Mild intermittent asthma, uncomplicated] Onset: 04-10-2024 Chronic Biliary tract disease (4 sources) Biliary calculus; Translations: [Calculus of gallbladder without cholecystitis without obstruction] Episodic Diabetes mellitus without complication (16 sources) Impaired fasting glycemia; Translations: [Impaired fasting glucose] 10-18-2023 Episodic Disorders of lipid metabolism (20 sources) Pure hypercholesterolemia ; 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 ] 10-11-2023 Chronic Diverticulosis and diverticulitis (3 sources) Diverticular disease of colon; Translations: [Diverticulosis of colon] Chronic Esophageal disorders (20 sources) Gastro-esophageal reflux disease with esophagitis; Translations: [Gastroesophageal reflux disease with esophagitis without hemorrhage] Onset: 04-10-2024 08-19-2023 Chronic Essential hypertension (20 sources) Essential hypertension; Translations: [Essential (primary) hypertension] Onset: 10-14-2022 Chronic Gastrointestinal hemorrhage (3 sources) Hematochezia; Translations: [HEMOCCULT POSITIVE STOOL] Episodic Malaise and fatigue (5 sources) Fatigue; Translations: [Other fatigue] Onset: 10-21-2022 Episodic Menopausal disorders (15 sources) Decreased estrogen level; Translations: [Other primary ovarian failure] 10-11-2023 Chronic Osteoarthritis (20 sources) Osteoarthritis of left knee joint; Translations: [Unilateral primary osteoarthritis, left knee] Onset: 04-07-2024 Resolved: 04-12-2024 Chronic Other aftercare (1 source) Other snf (current) drug therapy; Translations: [[employer] CURRENT DRUG THERAPY] Onset: 10-21-2022 Episodic Other and unspecified benign neoplasm (3 sources) History of polyp of colon; Translations: [History of colon polyps] Episodic Other and unspecified benign neoplasm (4 sources) Polyp of colon; Translations: [Polyp of colon] Episodic Other bone disease and musculoskeletal deformities (4 sources) Tietze's disease; Translations: [Chondrocostal junction syndrome [Tietze]] Episodic Other connective tissue disease (8 sources) History of total knee arthroplasty; Translations: [Presence of left artificial knee joint] Onset: 04-11-2024 04-12-2024 Chronic Other connective tissue disease (2 sources) Presence of left artificial knee joint; Translations: [Presence of left artificial knee joint] Onset: 04-11-2024 Chronic Other diseases of veins and lymphatics (4 sources) Peripheral venous insufficiency; Translations: [Venous insufficiency (chronic) (peripheral)] Episodic Other diseases of veins and lymphatics (5 sources) Venous insufficiency (chronic) (peripheral); Translations: [Venous (peripheral) insufficiency, unspecified] Episodic Other diseases of veins and lymphatics (2 sources) Venous insufficiency of leg; Translations: [Venous insufficiency (chronic) (peripheral)] 03-20-2024 Episodic Other lower respiratory disease (4 sources) Breathing painful; Translations: [Pleurodynia] Episodic Other nervous system disorders (10 sources) Chronic pain; Translations: [Other chronic pain] 12-09-2023 Chronic Other nervous system disorders (20 sources) Other chronic pain; Translations: [Other chronic pain] Onset: 12-21-2023 12-09-2023 Chronic Other non-traumatic joint disorders (2 sources) Arthritis of left knee 04-28-2024 Chronic Other non-traumatic joint disorders (20 sources) [...] Chronic Other nutritional; endocrine; and metabolic disorders (11 sources) Hypercalcemia; Translations: [Hypercalcemia] 10-18-2023 Chronic Other nutritional; endocrine; and metabolic disorders (4 sources) Obesity; Translations: [Class 1 obesity in adult] Onset: 04-10-2024 04-10-2024 Chronic Other screening for suspected conditions (not mental disorders or infectious disease) (3 sources) Encounter for screening mammogram for malignant neoplasm of breast; Translations: [Electrocardiogram abnormal] Onset: 10-21-2022 04-05-2024 Episodic Other skin disorders (4 sources) Asteatosis cutis; Translations: [Xerosis cutis] Episodic Other upper respiratory infections (1 source) Acute sphenoidal sinusitis, unspecified Episodic Residual codes; unclassified (19 sources) Obstructive sleep apnea syndrome; Translations: [Obstructive sleep apnea (adult) (pediatric)] Onset: 04-10-2024 08-19-2023 Chronic Residual codes; unclassified (11 sources) Obstructive sleep apnea (adult) (pediatric); Translations: [...] Translations: [Pain in left knee] Onset: 08-19-2023 Unclassified (1 source) Preprocedural examination done 04-04-2024 Unclassified (6 sources) Patient has total joint replacement knee surgery Onset: 03-23-2024 03-23-2024 Unclassified (1 source) Acute pain of left knee 04-04-2024 Past or Other Problems Problem Classification Problem Date Documented Da te Episodic/Chronic Esophageal disorders (3 sources) Esophageal disorders; Translations: [Gastroesophageal reflux disease with esophagitis without hemorrhage] Other lower respiratory disease (4 sources) Pleurodynia; Translations: [PLEURODYNIA] Onset: 02-17-2022 Episodic Unclassified (4 sources) Onset: 04-07-2024 04-07-2024 Viral infection (1 source) COVID-19 Results Test Name Value Interpretation Reference Range Facil ity XR KNEE LEFT 3 VIEWSon 04-28 XR KNEE LEFT 3 VIEWS Interpreted By: Jairo De La Cruz, STUDY: XR KNEE LEFT 3 VIEWS; ; 04/28/2024 10:33 am INDICATION: Signs/Symptoms:pain. ,M17.12 Unilateral primary osteoarthritis, left knee COMPARISON: 04/11/2024 ACCESSION NUMBER(S): [id number] ORDERING CLINICIAN: MALLY POSADA FINDINGS: Left knee, three views Total knee arthroplasty in place. There is a large effusion. There is no periprosthetic fracture or lucency. There is no dislocation IMPRESSION: No hardware failure about the left total knee arthroplasty MACRO: None Signed by: Jairo De La Cruz 04/29/2024 7:14 PM Dictation workstation: [id number] Normal [facility] Basic metabolic 2000 panelon 04-12-2024 Anion gap [Moles/Vol] 10 mmol/L Normal 10-20 [facility] Comment on above: Performed By: #### 5 7021-8 #### CATIE ESCOBAR ([id number]) [facility] ([facility]) [address] [place] [address] [id number] Calcium [Mass/Vol] 8.4 mg/dL Low 8.6-10.3 [facility] Comment on above: Performed By: #### 5 7021-8 #### CATIE ESCOBAR ([id number]) [facility] ([facility]) [address] [place] [address] Chloride [Moles/Vol] 105 mmol/L Normal 98-107 [facility] Comment on above: Performed By: #### 5 7021-8 #### CATIE ESCOBAR ([id number]) [facility]) [address] [place] [address] [id number] CO2 [Moles/Vol] 24 mmol/L Normal 21-32 [facility] Comment on above: Performed By: #### 5 7021-8 #### CATIE ESCOBAR ([id number]) [facility]) [address] [place] [address] [id number] Creatinine [Mass/Vol] 0.93 mg/dL Normal 0.50-1.05 [facility] Comment on above: Performed By: #### 5 7021-8 #### CATIE ESCOBAR ([id number]) [facility] ([facility]) [address] [place] [address] [id number] GFR/1.73 sq M.predicted among non-blacks MDRD (S/P/Bld) [Vol rate/Area] 62 mL/min/{1.73_m2} - [facility] Comment on above: Calculations of bhavik mated GFR are performed using the 2020 CKD-EPI Study Refit equation without the race variable for the IDMS-Traceable creatinine methods. https://jasn.asnjournals.org/content/early//ASN.6784915 988 Glucose [Mass/Vol] 110 mg/dL High 74-99 [facility] Comment on above: Performed By: #### 5 7021-8 #### CATIE ESCOBAR ([id number]) [facility] ([facility]) [address] [place] [address] [id number] Interpretation and review of laboratory results Abnormal [facility] Potassium [Moles/Vol] 4 mmol/L 3.5 - 5.3 mmol/L [facility] Sodium [Moles/Vol] 135 mmol/L Low 136-145 [facility] Comment on above: Performed By: #### 5 7021-8 #### CATIE ESCOBAR ([id number]) [facility] ([facility]) [address] [place] [address] [id number] Urea nitrogen [Mass/Vol] 22 mg/dL Normal 6-23 [facility] Comment on above: Performed By: #### 5 7021-8 #### CATIE ESCOBAR ([id number]) [facility] ([facility]) [address] [place] [address] Glomerular filtration rate/1.73 sq M.predicted 62 mL/min/1.73m*2 Normal >60 [facility] Comment on above: Result Comment: Calc ulations of estimated GFR are performed using the 2020 CKD-EPI Study Refit equation without the race variable for the IDMS-Traceable creatinine methods. https://jasn.asnjournals.org/content/early//ASN.9465056 988 Performed By: #### 5 7021-8 #### CATIE ESCOBAR ([id number]) [facility] ([facility]) [address] [place] [address] Potassium [Moles/Vol] 4.0 mmol/L Normal 3.5-5.3 [facility] Comment on above: Performed By: #### 5 7021-8 #### CATIE ESCOBAR ([id number]) [facility] [facility] ([facility]) [address] [place] [address] CBC panel Auto (Bld)on 04-12 Erythrocyte distribution width (RBC) [Ratio] 12.1 % Normal 11.5-14.5 [facility] Comment on above: Performed By: #### 5 8410-2 #### CATIE ESCOBAR ([id number]) [facility] ([facility]) [address] [place] [address] Hematocrit (Bld) [Volume fraction] 32.9 % Low 36.0-46.0 [facility] Comment on above: Performed By: #### 5 8410-2 #### CATIE ESCOBAR ([id number]) [facility] ([facility]) [address] [place] [address] Hemoglobin (Bld) [Mass/Vol] 11 g/dL Low 12.0 - 16.0 g/dL [facility] Interpretation and review of laboratory results Abnormal [facility] MCH (RBC) [Entitic mass] 31.2 pg Normal 26.0-34.0 [facility] Comment on above: Performed By: #### 5 8410-2 #### CATIE ESCOBAR ([id number]) [facility]) [address] [place] [address] 91918 MCHC (RBC) [Mass/Vol] 33.4 g/dL Normal 32.0-36.0 [facility] Comment on above: Performed By: #### 5 8410-2 #### CATIE ESCOBAR ([id number]) [facility]) [address] [place] [address] 72067 MCV (RBC) [Entitic vol] 93 fL Normal 80-100 [facility] Comment on above: Performed By: #### 5 8410-2 #### CATIE ESCOBAR ([id number]) [facility]) [address] [place] [address] 82600 Nucleated RBC/100 WBC (Bld) [Ratio] 0 % [facility] Platelets (Bld) [#/Vol] 194 10*3/uL [facility] RBC (Bld) [#/Vol] 3.53 10*6/uL Low [facility] WBC (Bld) [#/Vol] 10.6 10*3/uL [facility] Hemoglobin (Bld) [Mass/Vol] 11.0 g/dL Low 12.0-16.0 [facility] Comment on above: Performed By: #### 5 8410-2 #### CATIE ESCOBAR ([id number]) [facility]) [address] [place] [address] 25249 Nucleated RBC/100 WBC (Bld) [Ratio] 0.0 /100 WBCs Normal 0.0-0.0 [facility] Comment on above: Performed By: #### 5 8410-2 #### CATIE ESCOBAR ([id number]) [facility]) [address] [place] [address] 66339 Platelets (Bld) [#/Vol] 194 x10*3/uL Normal 150-450 [facility] Comment on above: Performed By: #### 5 8410-2 #### CATIE DEBORAH GIVENS ([id number]) [facility]) [address] [place] [address] 94086 RBC (Bld) [#/Vol] 3.53 x10*6/uL Low 4.00-5.20 [facility] Comment on above: Performed By: #### 5 8410-2 #### LEANNIBELILEOBARDO DEBORAH GIVENS ([id number]) [facility]) [address] [place] [address] 97323 WBC (Bld) [#/Vol] 10.6 x10*3/uL Normal 4.4-11.3 [facility] Comment on above: Performed By: #### 5 8410-2 #### CATIE DEBORAH GIVENS ([id number]) [facility] ([facility]) [address] [place] [address] 65275 XR KNEE LEFT 1-2 VIEWSon XR KNEE LEFT 1-2 VIEWS Interpreted By: Pantera Morton, STUDY: XR KNEE LEFT 1-2 VIEWS; 04/11/2024 10:27 am INDICATION: Signs/Symptoms:Post- op knee. 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 XR Knee - left 1 or 2 Viewso n 04-11-2024 As above MACRO: None Signed by: Pantera Morton 04/11/2024 10:45 AM Dictation workstation: [id number] Interpreted By: Pantera Morton, STUDY: XR KNEE LEFT 1-2 VIEWS; 04/11/2024 10:27 am INDICATION: Signs/Symptoms:Post- op knee. 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 Comment on above: Performed By: #### 5 7021-8 #### CATIE ESCOBAR ([id number]) [facility]) [address] [place] [address] 66511 Basophils/100 WBC (Bld) 0.6 % Normal 0.0-2.0 [facility] Comment on above: Performed By: #### 5 7021-8 #### CATIE ESCOBAR ([id number]) [facility] ([facility]) [address] [place] [address] 65752 Eosinophils (Bld) [#/Vol] 0.03 x10*3/uL Normal 0.00-0.40 [facility] Comment on above: Performed By: #### 5 7021-8 #### CATIE ESCOBAR ([id number]) [facility]) [address] [place] [address] 08983 Eosinophils/100 WBC (Bld) 0.4 % Normal 0.0-6.0 [facility] Comment on above: Performed By: #### 5 7021-8 #### CATIE ESCOBAR ([id number]) [facility] ([facility]) [address] [place] [address] 06076 Erythrocyte distribution width (RBC) [Ratio] 12.4 % Normal 11.5-14.5 [facility] Comment on above: Performed By: #### 5 7021-8 #### CATIE ESCOBAR ([id number]) [facility] ([facility]) [address] [place] [address] 41832 Hematocrit (Bld) [Volume fraction] 43.7 % Normal 36.0-46.0 [facility] Comment on above: Performed By: #### 5 7021-8 #### CATIE ESCOBAR ([id number]) [facility]) [address] [place] [address] 63629 Hemoglobin (Bld) [Mass/Vol] 14.1 g/dL Normal 12.0-16.0 [facility] Comment on above: Performed By: #### 5 7021-8 #### CATIE ESCOBAR ([id number]) [facility]) [address] [place] [address] 10252 Immature granulocytes (Bld) [#/Vol] 0.03 x10*3/uL Normal 0.00-0.50 [facility] Comment on above: Performed By: #### 5 7021-8 #### CATIE ESCOBAR ([id number]) [facility]) [address] [place] [address] 11041 Immature granulocytes/100 WBC (Bld) 0.4 % Normal 0.0-0.9 [facility] Comment on above: Result Comment: Marcia ture Granulocyte Count (IG) includes promyelocytes, myelocytes and metamyelocytes but does not include bands. Percent differential counts (%) should be interpreted in the context of the absolute cell counts (cells/UL). Performed By: #### 5 7021-8 #### CATIE ESCOBAR ([id number]) [facility]) [address] [place] [address] Lymphocytes (Bld) [#/Vol] 2.08 x10*3/uL Normal 0.80-3.00 [facility] Comment on above: Performed By: #### 5 7021-8 #### CATIE ESCOBAR ([id number]) [facility]) [address] [place] [address] 68693 Lymphocytes/100 WBC (Bld) 25.6 % Normal 13.0-44.0 [facility] Comment on above: Performed By: #### 5 7021-8 #### CATIE ESCOBAR ([id number]) [facility]) [address] [place] [address] MCH (RBC) [Entitic mass] 30.9 pg Normal 26.0-34.0 [facility] Comment on above: Performed By: #### 5 7021-8 #### CATIE ESCOBAR ([id number]) [facility]) [address] [place] [address] 22864 MCHC (RBC) [Mass/Vol] 32.3 g/dL Normal 32.0-36.0 [facility] Comment on above: Performed By: #### 5 7021-8 #### CATIE ESCOBAR ([id number]) [facility]) [address] [place] [address] MCV (RBC) [Entitic vol] 96 fL Normal 80-100 [facility] Comment on above: Performed By: #### 5 7021-8 #### CATIE ESCOBAR ([id number]) [facility] [address] [place] [address] 65683 Monocytes (Bld) [#/Vol] 0.43 x10*3/uL Normal 0.05-0.80 [facility] Comment on above: Performed By: #### 5 7021-8 #### CATIE ESCOBAR ([id number]) [facility] [address] [place] [address] 53492 Monocytes/100 WBC (Bld) 5.3 % Normal 2.0-10.0 [facility] Comment on above: Performed By: #### 5 7021-8 #### CATIE ESCOBAR ([id number]) [facility] [address] [place] [address] 73492 Neutrophils (Bld) [#/Vol] 5.52 x10*3/uL High 1.60-5.50 [facility] Comment on above: Result Comment: Perc ent differential counts (%) should be interpreted in the context of the absolute cell counts (cells/uL). Performed By: #### 5 7021-8 #### CATIE ESCOBAR ([id number]) [facility] [address] [place] [address] 86966 Neutrophils/100 WBC (Bld) 67.7 % Normal 40.0-80.0 [facility] Comment on above: Performed By: #### 5 7021-8 #### CATIE ESCOBAR ([id number]) [facility] [address] [place] [address] 26375 Nucleated RBC/100 WBC (Bld) [Ratio] 0.0 /100 WBCs Normal 0.0-0.0 [facility] Comment on above: Performed By: #### 5 7021-8 #### CATIE ESCOBAR ([id number]) [facility]) [address] [place] [address] Platelets (Bld) [#/Vol] 248 x10*3/uL Normal 150-450 [facility] Comment on above: Performed By: #### 5 7021-8 #### CATIE ESCOBAR ([id number]) [facility] [address] [place] [address] 28595 RBC (Bld) [#/Vol] 4.56 x10*6/uL Normal 4.00-5.20 [facility] Comment on above: Performed By: #### 5 7021-8 #### CATIE ESCOBAR ([id number]) [facility] [address] [place] [address] 67077 WBC (Bld) [#/Vol] 8.1 x10*3/uL Normal 4.4-11.3 [facility] Comment on above: Performed By: #### 5 7021-8 #### CATIE ESCOBAR ([id number]) [facility] [address] [place] [address] KNEE LEFT WO IV CONTRASTo n 04-04-2024 CT KNEE LEFT WO IV CONTRAST These images are not reportable by radiology and will not be interpreted by Radiologists. Normal [facility] Comment on above: Order Comment: RAFAEL KNEE PROTOCOL CT Knee - left WO contraston 04-04-2024 These images are not reportable by radiology and will not be interpreted by Radiologists. IMAGING Coagulation surface inducedo n 04-04-2024 aPTT Coag (PPP) [Time] 28 s Normal 27-38 [facility] Comment on above: Order Comment: The A PTT is no longer used for monitoring Unfractionated Heparin Therapy. For monitoring Heparin Therapy, use the Heparin Assay. Performed By: #### 1 4979-9 #### CATIE ESCOBAR ([id number]) [facility] [address] [place] [address] 66454 Coagulation tissue factor in ducedon 04-04-2024 PT Coag (PPP) [Time] 10.9 s Normal 9.8-12.8 [facility] Comment on above: Performed By: #### 5 902-2 #### CATIE ESCOBAR ([id number]) [facility] [address] [place] [address] 96034 Comprehensive metabolic 2000 panelon 04-04-2024 Albumin BCP dye [Mass/Vol] 4.4 g/dL Normal 3.4-5.0 [facility] Comment on above: Performed By: #### 2 4323-8 #### LEANNIBJULITA ESCOBAR ([id number]) [facility] [address] [place] [address] 49593 ALP [Catalytic activity/Vol] 54 U/L Normal 33-136 [facility] Comment on above: Performed By: #### 2 4323-8 #### CATIE ESCOBAR ([id number]) [facility] [address] [place] [address] 58565 ALT With P-5'-P [Catalytic activity/Vol] 11 U/L Normal 7-45 [facility] Comment on above: Result Comment: Shazia ents treated with Sulfasalazine may generate falsely decreased results for ALT. Performed By: #### 2 4323-8 #### CATIE ESCOBAR ([id number]) [facility] [address] [place] [address] 99416 Anion gap [Moles/Vol] 15 mmol/L Normal 10-20 [facility] Comment on above: Performed By: #### 2 4323-8 #### LEANNIBJULITA ESCOBAR ([id number]) [facility] [address] [place] [address] 08129 AST With P-5'-P [Catalytic activity/Vol] 16 U/L Normal 9-39 [facility] Comment on above: Performed By: #### 2 4323-8 #### LEANNIBJULITA ESCOBAR ([id number]) [facility] [address] [place] [address] 60641 Bilirubin [Mass/Vol] 0.7 mg/dL Normal 0.0-1.2 [facility] Comment on above: Performed By: #### 2 4323-8 #### CATIE ESCOBAR ([id number]) [facility] [address] [place] [address] Calcium [Mass/Vol] 10.1 mg/dL Normal 8.6-10.3 [facility] Comment on above: Performed By: #### 2 4323-8 #### CATIE ESCOBAR ([id number]) [facility] [address] [place] [address] 10891 Chloride [Moles/Vol] 103 mmol/L Normal 98-107 [facility] Comment on above: Performed By: #### 2 4323-8 #### CATIE ESCOBAR ([id number]) [facility] [address] [place] [address] 35174 CO2 [Moles/Vol] 29 mmol/L Normal 21-32 [facility] Comment on above: Performed By: #### 2 4323-8 #### CATIE ESCOBAR ([id number]) [facility] [address] [place] [address] 68040 Creatinine [Mass/Vol] 0.75 mg/dL Normal 0.50-1.05 [facility] Comment on above: Performed By: #### 2 4323-8 #### CATIE ESCOBAR ([id number]) [facility] [address] [place] [address] 17408 Glomerular filtration rate/1.73 sq M.predicted 80 mL/min/1.73m*2 Normal >60 [facility] Comment on above: Result Comment: Calc ulations of estimated GFR are performed using the 2020 CKD-EPI Study Refit equation without the race variable for the IDMS-Traceable creatinine methods. https://jasn.asnjournals.org/content//ASN.8548528 988 Performed By: #### 2 4323-8 #### CATIE ESCOBAR ([id number]) [facility] [address] [place] [address] 51325 Glucose [Mass/Vol] 101 mg/dL High 74-99 [facility] Comment on above: Performed By: #### 2 4323-8 #### CATIE ESCOBAR ([id number]) [facility] [address] [place] [address] 88920 Potassium [Moles/Vol] 4.5 mmol/L Normal 3.5-5.3 [facility] Comment on above: Performed By: #### 2 4323-8 #### CATIE ESCOBAR ([id number]) [facility] [address] [place] [address] 87477 Protein [Mass/Vol] 6.7 g/dL Normal 6.4-8.2 [facility] Comment on above: Performed By: #### 2 4323-8 #### CATIE ESCOBAR ([id number]) [facility] [address] [place] [address] 19609 Sodium [Moles/Vol] 142 mmol/L Normal 136-145 [facility] Comment on above: Performed By: #### 2 4323-8 #### CATIE ESCOBAR ([id number]) [facility] [address] [place] [address] 85981 Urea nitrogen [Mass/Vol] 20 mg/dL Normal 6-23 [facility] Comment on above: Performed By: #### 2 4323-8 #### CATIE CABRERA RIO TOSHA ([id number]) [facility] [address] [place] [address] 81402 ECG 12-LEADon 04-04-2024 ECG 12-LEAD Ventricular Rate 88 Atrial Rate 88 P-R Interval 180 QRS Duration 80 Q-T Interval 364 QTC Calculation(Bazett) 440 P [place] 30 R [place] -10 T [place] -2 QRS Count 15 Q Onset 220 P Onset 130 P Offset 184 T Offset 402 QTC Fredericia 413 Diagnosis Sinus rhythm with occasional Premature ventricular complexes Cannot rule out Anterior infarct , age undetermined Diffuse NSSTW changes Abnormal ECG No previous ECGs available Confirmed by Oliver Barrett ([id number]) on 04/09/2024 8:22:49 PM Normal [facility] HbA1c (Bld) [Mass fraction]o n 04-04-2024 Average glucose Estimated from glycated hemoglobin (Bld) [Mass/Vol] 105 mg/dL Normal Not Established [facility] Comment on above: Order Comment: Diagn osis of Diabetes-Adults Non-Diabetic: < or = 5.6% Increased risk for developing diabetes: 5.7-6.4% Diagnostic of diabetes: > or = 6.5% Performed By: #### 4 548-4 #### JANELL Amor ([id number]) [facility] ([facility]) [address] [place] [address] 15858 Hemoglobin A1c/Hemoglobin.to erasmo 04-04-2024 HbA1c (Bld) [Mass fraction] 5.3 % Normal See comment [facility] Comment on above: Order Comment: Diagn osis of Diabetes-Adults Non-Diabetic: < or = 5.6% Increased risk for developing diabetes: 5.7-6.4% Diagnostic of diabetes: > or = 6.5% Performed By: #### 4 548-4 #### JANELL Amor ([id number]) [facility] ([facility]) [address] [place] [address] 18864 PT Coag (PPP) [Time]on 04-04 INR Coag (PPP) [Relative time] 1.0 Normal 0.9-1.1 [facility] Comment on above: Performed By: #### 5 902-2 #### CATIE ESCOBAR ([id number]) [facility] ([facility]) [address] [place] [address] 75756 Staphylococcus aureus.methic illin resistant isolateon 04-04-2024 MRSA isol Org specific cx Ql (Nose) Test: Staphylococcus aureus/MRSA colonization, Culture Specimen Source: Nares/Axilla/Groin Specimen Type: Swab Specimen Date: 04/04/2024 1010 Result Date: 04/07/2024 1336 Result Status: Final result Abnormal: No Resulting Lab: [facility] [address] [place] [id number] CULTURE No Staphylococcus aureus isolated [facility] Comment on above: Performed By: #### 5 2969-3 #### JANELL Amor ([id number]) [facility] ([facility]) [address] [place] [address] XR KNEE LEFT 4+ VIEWSon XR KNEE LEFT 4+ VIEWS Interpreted By: Jairo De La Cruz, STUDY: XR KNEE LEFT 4+ VIEWS; ; 03/17/2024 1:21 pm INDICATION: Signs/Symptoms:pain. ,M25.562 Pain in left knee COMPARISON: None. ACCESSION NUMBER(S): [id number] ORDERING CLINICIAN: MALLY POSADA FINDINGS: Left knee, [...] La Cruz 03/18/2024 10:24 AM Dictation workstation: [id number] [facility] Estimated glomerular filtrat ion rate (GFR) non- Americanon 01-31-2024 GFR/1.73 sq M.predicted among non-blacks MDRD (S/P/Bld) [Vol rate/Area] mL/min/{1.73_m2} >=60 [facility] Glucose mean value [Mass/vol ume] in Blood Estimated from glycated hemoglobinon 01-31-2024 Average glucose Estimated from glycated hemoglobin (Bld) [Mass/Vol] 108 mg/dL [facility] Laboratory - Chemistry and C hemistry - challengeon 01-31-2024 Calcium [Mass/Vol] 9.4 mg/dL 8.5-10.1 [facility] Chloride [Moles/Vol] 103 mmol/L 98-107 [facility] CO2 [Moles/Vol] 28.1 mmol/L 21.0-32.0 [facility] Creatinine [Mass/Vol] 0.89 mg/dL 0.55-1.02 [facility] GFR/1.73 sq M.predicted MDRD (S/P/Bld) [Vol rate/Area] mL/min/{1.73_m2} >=60 [facility] Glucose [Mass/Vol] 109 mg/dL High 74-106 [facility] Potassium [Moles/Vol] 3.8 mmol/L 3.5-5.1 [facility] Sodium [Moles/Vol] 139 mmol/L 136-145 [facility] Urea nitrogen [Mass/Vol] 21.0 mg/dL High 7.0-18.0 [facility] Urea nitrogen/Creatinine [Mass ratio] 23.6 mg/mg [facility] - Hematology and Cell countson 01-31-2024 HbA1c (Bld) [Mass fraction] 5.4 % 4.5-6.2 [facility] Comment on above: ADA RECOMMENDED LIMI T 4.0 - 6.0ADA THERAPEUTIC TARGET < 7.0ACTION SUGGESTED> 7.0 No Panel Informationon 01-30 25-Hydroxy Vitamin D Total 33.6 ng/mL [facility] Comment on above: <20 ng/mL Vit D defi cient20-<30 ng/mL Vit D [id number] ng/mL Vit D sufficient>100 ng/mL Potential Toxicity Parathyroid Hormone (Intact) 33 pg/mL 15-65 [facility] Comment on above: Performed at: - [facility] [address] [id number] Director: Lowell Alvares PhD, Phone: [phone] Serum or plasma anion gap de terminationon 01-31-2024 Anion gap [Moles/Vol] 11.7 mmol/L [facility] Basophils Auto (Bld) [#/Vol] on 10-18-2023 Basophils (Bld) [#/Vol] 0.1 10 3/uL 0.0-0.1 [facility] Basophils/100 WBC Auto (Bld) on 10-18-2023 Basophils/100 WBC (Bld) 0.6 % 0.2-2.0 [facility] Bilirubin Auto test strip (U ) [Mass/Vol]on 10-18-2023 Bilirubin (U) [Mass/Vol] Negative NEGATIVE [facility] Cholesterol in LDL Calc [Mas s/Vol]on 10-18-2023 Cholesterol in LDL [Mass/Vol] 149.0 mg/dL [facility] Comment on above: <100 mg/dl [id number] 0-129 mg/dl NEAR OR ABOVE [id number] mg/dl BORDERLINE [id number] mg/dl HIGH>190 mg/dl VERY HIGH Cholesterol in VLDL Calc [Ma ss/Vol]on 10-18-2023 Cholesterol in VLDL [Mass/Vol] 15.6 mg/dL [facility] Eosinophils/100 WBC Auto (Bl d)on 10-18-2023 Eosinophils/100 WBC (Bld) 0.4 % Low 0.9-7.0 [facility] Erythrocyte distribution wid th Auto (RBC) [Ratio]on 10-18-2023 Erythrocyte distribution width (RBC) [Ratio] 12.3 % 11.0-15.0 [facility] Estimated glomerular filtrat ion rate (GFR) non- Americanon 10-18-2023 GFR/1.73 sq M.predicted among non-blacks MDRD (S/P/Bld) [Vol rate/Area] 59 mL/min/{1.73_m2} Low >=60 [facility] Globulin Calc (S) [Mass/Vol] on 10-18-2023 Globulin (S) [Mass/Vol] 3.5 g/dL [facility] Hematocrit Auto (Bld) [Volum e fraction]on 10-18-2023 Hematocrit (Bld) [Volume fraction] 42.6 % 36.0-48.0 [facility] Hemoglobin [Mass/volume] in Bloodon 10-18-2023 Hemoglobin (Bld) [Mass/Vol] 13.7 g/dL 12.0-16.0 [facility] - Chemistry and C hemistry - challengeon 10-18-2023 Albumin [Mass/Vol] 3.6 g/dL 3.4-5.0 [facility] ALP [Catalytic activity/Vol] 68 U/L 46-116 [facility] ALT [Catalytic activity/Vol] 22 U/L 14-59 [facility] AST [Catalytic activity/Vol] 16 U/L 15-37 [facility] Bilirubin [Mass/Vol] 0.5 mg/dL 0.2-1.0 [facility] Calcium [Mass/Vol] 10.2 mg/dL High 8.5-10.1 [facility] Chloride [Moles/Vol] 101 mmol/L 98-107 [facility] Cholesterol [Mass/Vol] 233 mg/dL High <=200 [facility] Cholesterol in HDL [Mass/Vol] 69 mg/dL High 40-60 [facility] Comment on above: > or =60 mg/dl - LOW CARDIOVASCULAR RISK<40 mg/dl - HIGH CARDIOVASCULAR RISK CO2 [Moles/Vol] 27.7 mmol/L 21.0-32.0 [facility] Creatinine [Mass/Vol] 0.91 mg/dL 0.55-1.02 [facility] GFR/1.73 sq M.predicted MDRD (S/P/Bld) [Vol rate/Area] mL/min/{1.73_m2} >=60 [facility] Glucose [Mass/Vol] 121 mg/dL High 74-106 [facility] Potassium [Moles/Vol] 4.2 mmol/L 3.5-5.1 [facility] Protein [Mass/Vol] 7.1 g/dL 6.4-8.2 [facility] Sodium [Moles/Vol] 137 mmol/L 136-145 [facility] Triglyceride [Mass/Vol] 78 mg/dL <=150 [facility] Urea nitrogen [Mass/Vol] 23.0 mg/dL High 7.0-18.0 [facility] Urea nitrogen/Creatinine [Mass ratio] 25.3 mg/mg [facility] Glucose (U) [Mass/Vol] Negative NEGATIVE [facility] Ketones Ql (U) Negative NEGATIVE [facility] pH (U) 7.0 [pH] 5.0-9.0 [facility] Specific gravity (U) [Rel density] 1.015 1.005-1.025 [facility] Urobilinogen Qn (U) 0.2 {Marlene'U}/dL 0.2-1.0 [facility] - Hematology and Cell countson 10-18-2023 Immature granulocytes/100 WBC (Bld) 0.4 % 0.0-0.5 [facility] - Specimen inform ationon 10-18-2023 Appearance (U) CLEAR CLEAR [facility] Color (U) LT. YELLOW YELLOW [facility] - Urinalysison Leukocyte esterase Test strip Ql (U) Negative NEGATIVE [facility] Nitrite Ql (U) Negative NEGATIVE [facility] Protein Ql (U) Negative NEG/TRACE [facility] Leukocytes [#/volume] correc papa for nucleated erythrocytes in Blood by Automated counon 10-18-2023 WBC corrected for nucl RBC Auto (Bld) [#/Vol] 10.8 10 3/uL 4.0-11.0 [facility] Lymphocytes Auto (Bld) [#/Vo l]on 10-18-2023 Lymphocytes (Bld) [#/Vol] 2.9 10 3/uL 1.2-3.8 [facility] Lymphocytes/100 WBC Auto (Bl d)on 10-18-2023 Lymphocytes/100 WBC (Bld) 26.5 % 20.5-60.0 [facility] MCH Auto (RBC) [Entitic mass ]on 10-18-2023 MCH (RBC) [Entitic mass] 30.2 pg 26.7-34.0 [facility] MCHC Auto (RBC) [Mass/Vol]on 10-18-2023 MCHC (RBC) [Mass/Vol] 32.2 g/dL 29.9-35.2 [facility] MCV Auto (RBC) [Entitic vol] on 10-18-2023 MCV (RBC) [Entitic vol] 93.8 fL 81.0-99.0 [facility] Monocytes Auto (Bld) [#/Vol] on 10-18-2023 Monocytes (Bld) [#/Vol] 0.4 10 3/uL 0.3-0.8 [facility] Monocytes/100 WBC Auto (Bld) on 10-18-2023 Monocytes/100 WBC (Bld) 3.8 % 1.7-12.0 [facility] Neutrophils Auto (Bld) [#/Vo l]on 10-18-2023 Neutrophils (Bld) [#/Vol] 7.4 10 3/uL High 1.4-6.5 [facility] Neutrophils/100 WBC Auto (Bl d)on 10-18-2023 Neutrophils/100 WBC (Bld) 68.3 % 43.0-75.0 [facility] No Panel Informationon 10-17 Eosinophils # (Auto) 0.0 10 3/uL 0.0-0.7 [facility] Immature Granulocyte # (Auto) 0.04 10 3/uL High 0.00-0.03 [facility] Platelet mean volume Auto (B ld) [Entitic vol]on 10-18-2023 Platelet mean volume (Bld) [Entitic vol] 11.1 fL 9.5-13.5 [facility] Platelets Auto (Bld) [#/Vol] on 10-18-2023 Platelets (Bld) [#/Vol] 274 10 3/uL 150-450 [facility] RBC Auto (Bld) [#/Vol]on RBC (Bld) [#/Vol] 4.54 10 6/uL 4.20-5.40 [facility] Serum or plasma albumin/glob ulin mass ratioon 10-18-2023 Albumin/Globulin [Mass ratio] 1.0 {ratio} [facility] Serum or plasma anion gap de terminationon 10-18-2023 Anion gap [Moles/Vol] 12.5 mmol/L [facility] Serum or plasma total choles terol/high density lipoprotein (HDL) cholesterol mass [place] 10-18-2023 Cholesterol.total/Ch olesterol in HDL [Mass ratio] 3.4 {ratio} [facility] Comment on above: 3.3 - 4.4 LOW RISK4. 4 - 7.1 AVERAGE RISK7.1 - 11.0 MODERATE RISK>11.0 HIGH RISK Urine hemoglobin detection b y automated test stripon 10-18-2023 Hemoglobin Auto test strip Ql (U) Negative NEGATIVE [facility] Laboratory - Chemistry and C hemistry - challengeon 10-13-2023 Bilirubin Ql (U) Negative [facility] Glucose (U) [Mass/Vol] Negative [facility] Ketones Ql (U) small [facility] pH (U) 5.0 [pH] [facility] Specific gravity (U) [Rel density] 1.010 [facility] Urobilinogen (U) [Mass/Vol] 0.2 mg/dL [facility] Laboratory - Specimen inform ationon 10-13-2023 Appearance (U) clear [facility] Color (U) yellow [facility] Laboratory - Urinalysison Leukocyte esterase Test strip Ql (U) Negative [facility] Nitrite Ql (U) Negative [facility] Protein Ql (U) Negative [facility] No Panel Informationon 10-12 Urine Occult Blood [facility] XR pelvis 1-2Von 08-19-2023 XR pelvis 1-2V [facility] [address] XRay Report Signed Patient: Shanti Zuniga MR#: [id number] : 1940 Acct:[id number] Age/Sex: 82 / F ADM Date: 08/19/23 Loc: [facility] Room: Type: [facility] Attending Dr: Bobby Purcell II, MD Copies to: Bobby Purcell MD Ordering Provider: Bobby Purcell MD Date of Service: 08/19/23 XR/XR knee LT 4V*: M25.562 - Pain in left knee ([id number]) XR/XR pelvis 1-2V: M25.562 - Pain in [...] Anam Bauer M.D.08/19/2023 2:32 PM Dictation Location: [place] [address] Transcribed By: [facility] 08/19/23 1432 Dictated By: Anam Bauer DO 08/19/23 1429 Signed By: 08/19/23 1432 Normal [facility] CBC AUTO DIFFon 10-14-2022 BASO # 0.1 103/ul Normal 0.0-0.1 [facility] Comment on above: Performed By: #### C BC #### [facility] [address] [address] [address] Isaias Zimmer Basophils/100 WBC (Bld) 0.6 % Normal 0.2-2.0 [facility] Comment on above: Performed By: #### C BC #### [facility] [address] [address] [address] Isaias Zimmer EO # 0.1 103/ul Normal 0.0-0.7 [facility] Comment on above: Performed By: #### C BC #### [facility] [address] [address] [address] Isaias Zimmer Eosinophils/100 WBC (Bld) 0.7 % Critically low 0.9-7.0 [facility] Comment on above: Performed By: #### C BC #### [facility] [address] [address] [address] Isaias Zimmer Erythrocyte distribution width (RBC) [Ratio] 12.3 % Normal 11.0-15.0 [facility] Comment on above: Performed By: #### C BC #### [facility] [address] [address] [address] Isaias Zimmer Hematocrit (Bld) [Volume fraction] 43.9 % Normal 36.0-48.0 [facility] Comment on above: Performed By: #### C BC #### [facility] [address] [place] [address] Dr. Isaias Zimmer Hemoglobin (Bld) [Mass/Vol] 14.1 g/dL Normal 12.0-16.0 [facility] Comment on above: Performed By: #### C BC #### [facility] [address] [place] [address] Dr. Isaias Zimmer IG # 0.02 10e3/ul Normal 0.00-0.03 [facility] Comment on above: Performed By: #### C BC #### [facility] [address] [place] [address] Dr. Isaias Zimmer IG % 0.2 % Normal 0.0-0.5 [facility] Comment on above: Performed By: #### C BC #### [facility] [address] [place] [address] Dr. Isaias Zimmer LYMPH # 2.4 103/ul Normal 1.2-3.8 [facility] Comment on above: Performed By: #### C BC #### [facility] [address] [place] [address] Dr. Isaias Zimmer Lymphocytes/100 WBC (Bld) 23.0 % Normal 20.5-60.0 [facility] Comment on above: Performed By: #### C BC #### [facility] [address] [place] [address] Dr. Isaias Zimmer MANUAL DIFF REQ NO Normal [facility] Comment on above: Performed By: #### C BC #### [facility] [address] [place] [address] Dr. Isaias Zimmer MCH (RBC) [Entitic mass] 29.6 pg Normal 26.7-34.0 [facility] Comment on above: Performed By: #### C BC #### [facility] [address] [place] [address] Dr. Isaias Zimmer MCHC (RBC) [Mass/Vol] 32.1 g/dL Normal 29.9-35.2 [facility] Comment on above: Performed By: #### C BC #### [facility] [address] [place] [address] Dr. Isaias Zimmer MCV (RBC) [Entitic vol] 92.2 fL Normal 81.0-99.0 [facility] Comment on above: Performed By: #### C BC #### [facility] [address] [place] [address] Dr. Isaias Zimmer MONO # 0.3 103/ul Normal 0.3-0.8 [facility] Comment on above: Performed By: #### C BC #### [facility] [address] [place] [address] Dr. Isaias Zimmer Monocytes/100 WBC (Bld) 3.1 % Normal 1.7-12.0 [facility] Comment on above: Performed By: #### C BC #### [facility] [address] [place] [address] Dr. Isaias Zimmer NEUT # 7.5 103/ul Critically high 1.4-6.5 [facility] Comment on above: Performed By: #### C BC #### [facility] [address] [place] [address] Dr. Isaias Zimmer Neutrophils/100 WBC (Bld) 72.4 % Normal 43.0-75.0 [facility] Comment on above: Performed By: #### C BC #### [facility] [address] [place] [address] Dr. Isaias Zimmer Platelet mean volume (Bld) [Entitic vol] 11.7 fL Normal 9.5-13.5 [facility] Comment on above: Performed By: #### C BC #### [facility] [address] [place] [address] Dr. Isaias Zimmer PLT 268 103/ul Normal 150-450 [facility] Comment on above: Performed By: #### C BC #### [facility] [address] [place] [address] Dr. Isaias Zimmer RBC 4.76 106/ul Normal 4.20-5.40 [facility] Comment on above: Performed By: #### C BC #### [facility] [address] [place] [address] Dr. Isaias Zimmer WBC 10.3 103/ul Normal 4.0-11.0 [facility] Comment on above: Performed By: #### C BC #### [facility] [address] [place], [place] [address] Dr. Isaias Zimmer MG MAMM SCREEN 3D TU CADon 10-14-2022 MG MAMM SCREEN 3D TU CAD Patient: SHANTI ZUNIGA Exam Date: 10/14/2022 : 1940 Gender:F Ordering : DR BA BILLINGSLEY D.O. Admission #: [id number] Family : Order #: [id number] CLICK HERE TO VIEW EXAM RADIOLOGY REPORT [...] breast cancer at age 52. LOCATION: [facility] BREAST COMPOSITION: Scattered areas fibroglandular density. [...] MD on 10/14/2022 at 13:52 Normal [facility] PROF CHEM 8 (BAS METB)on Anion gap [Moles/Vol] 12.6 mmol/L Normal [facility] Comment on above: Performed By: #### B MP, TSH #### [facility] [address] [place], [place] [address] Dr. Isaias Zimmer Calcium [Mass/Vol] 9.5 mg/dL Normal 8.5-10.1 [facility] Comment on above: Performed By: #### B MP, TSH #### [facility] [address] [place] [address] Dr. Isaias Zimmer Chloride [Moles/Vol] 101 mmol/L Normal 98-107 [facility] Comment on above: Performed By: #### B MP, TSH #### [facility] [address] [place] [address] Dr. Isaias Zimmer CO2 [Moles/Vol] 28.5 mmol/L Normal 21.0-32.0 [facility] Comment on above: Performed By: #### B MP, TSH #### [facility] [address] [place] [address] Dr. Isaias Zimmer Creatinine [Mass/Vol] 0.91 mg/dL Normal 0.55-1.02 [facility] Comment on above: Performed By: #### B MP, TSH #### [facility] [address] [place] [address] Dr. Isaias Zimmer EGFR-AF CAMBODIAN >60 Normal >=60 [facility] Comment on above: Performed By: #### B MP, TSH #### [facility] [address] [place] [address] Dr. Isaias Zimmer EGFR-NON AF CAMBODIAN 60 mL/min/1.73m2 Normal >=60 [facility] Comment on above: Performed By: #### B MP, TSH #### [facility] [address] [place] [address] Dr. Isaias Zimmer Glucose [Mass/Vol] 116 mg/dL Critically high 74-106 [facility] Comment on above: Performed By: #### B MP, TSH #### [facility] [address] [place] [address] Dr. Isaias Zimmer Potassium [Moles/Vol] 4.1 mmol/L Normal 3.5-5.1 [facility] Comment on above: Performed By: #### B MP, TSH #### [facility] [address] [place] [address] Dr. Isaias Zimmer Sodium [Moles/Vol] 138 mmol/L Normal 136-145 [facility] Comment on above: Performed By: #### B MP, TSH #### [facility] [address] [address] [address] Isaias Zimmer Urea nitrogen [Mass/Vol] 16.0 mg/dL Normal 7.0-18.0 [facility] Comment on above: Performed By: #### B MP, TSH #### [facility] [address] [place] [address] Dr. Isaias Zimmer Urea nitrogen/Creatinine [Mass ratio] 17.6 mg/mg Normal [facility] Comment on above: Performed By: #### B MP, TSH #### [facility] [address] [place] [address] Dr. Isaias Zimmer TSHon 10-14-2022 TSH 1.312 uIU/mL Normal 0.358-3.740 [facility] Comment on above: Performed By: #### B LANDON, TSH #### [facility] [address] [place] [address] Dr. Isaias Zimmer XR RIBS RT PA [...] by: GUILHERME MARTE Date: 2022-02-17 11:20 Normal [facility] Vital Signs Date Time Vital Sign Value Performing Clinician Facility 05-02-2024 10:16-0500 Body mass index (BMI) [Ratio] 30.6 kg/m2 [facility] 05-02-2024 09:55-0500 Body height 157.48 cm [facility] 05-02-2024 09:55-0500 Body weight 75.92 kg [facility] 05-02-2024 09:55-0500 Diastolic blood pressure 79 mm[Hg] [facility] 05-02-2024 09:55-0500 Heart rate 98 /min [facility] 05-02-2024 09:55-0500 Respiratory rate 12 /min [facility] 05-02-2024 09:55-0500 Systolic blood pressure 119 mm[Hg] [facility] 04-28-2024 10:19-0500 Body height 154.9 cm Mally Posada MD Work Phone: [facility] 04-28-2024 10:19-0500 Body mass index (BMI) [Ratio] 31.37 kg/m2 Mally Posada MD Work Phone: [facility] 04-28-2024 10:19-0500 Body weight 75.3 kg Mally Posada MD Work Phone: [facility] 04-12-2024 07:42-0400 Body temperature 96.6 [degF] Mally Posada MD Work Phone: [facility] 04-12-2024 07:42-0400 Diastolic blood pressure 58 mm[Hg] Mally Posada MD Work Phone: [facility] 04-12-2024 07:42-0400 Heart rate 66 /min Mally Posada MD Work Phone: [facility] 04-12-2024 07:42-0400 Respiratory rate 18 /min Mally Posada MD Work Phone: [facility] 04-12-2024 07:42-0400 SaO2% (BldA) [Mass fraction] 96 % Mally Posada MD Work Phone: [facility] 04-12-2024 07:42-0400 Systolic blood pressure 122 mm[Hg] Mally Posada MD Work Phone: [facility] 04-11-2024 06:30-0400 Body height 154.9 cm Mally Posada MD Work Phone: [facility] 04-11-2024 06:30-0400 Body mass index (BMI) [Ratio] 31.49 kg/m2 Mally Posada MD Work Phone: [facility] 04-11-2024 06:30-0400 Body weight 75.6 kg Mally Posada MD Work Phone: [facility] 04-05-2024 09:50-0400 Body mass index (BMI) [Ratio] 30.7 kg/m2 [facility] 04-02-2024 15:38-0400 Body height 157.48 cm DO Ba Ball Work Phone: [facility] 04-02-2024 15:38-0400 Body mass index (BMI) [Ratio] 30.7 kg/m2 DO Ba Ball Work Phone: [facility] 04-02-2024 15:38-0400 Body weight 76.2 kg DO Ba Ball Work Phone: [facility] 04-02-2024 15:38-0400 Diastolic blood pressure 81 mm[Hg] DO Ba Ball Work Phone: [facility] 04-02-2024 15:38-0400 Heart rate 97 /min DO Ba Ball Work Phone: [facility] 04-02-2024 15:38-0400 Respiratory rate 12 /min DO Ba Ball Work Phone: [facility] 04-02-2024 15:38-0400 Systolic blood pressure 127 mm[Hg] DO Ba Ball Work Phone: [facility] 03-20-2024 11:44-0400 Body height 157.48 cm DO Ba Ball Work Phone: [facility] 03-20-2024 11:44-0400 Body mass index (BMI) [Ratio] 31.1 kg/m2 DO Ba Ball Work Phone: [facility] 03-20-2024 11:44-0400 Body weight 77.22 kg DO Ba Ball Work Phone: [facility] 03-20-2024 11:44-0400 Diastolic blood pressure 82 mm[Hg] DO Ba Ball Work Phone: [facility] 03-20-2024 11:44-0400 Heart rate 88 /min DO Ba Ball Work Phone: [facility] 03-20-2024 11:44-0400 Respiratory rate 12 /min DO Ba Ball Work Phone: [facility] 03-20-2024 11:44-0400 Systolic blood pressure 144 mm[Hg] DO Ba Ball Work Phone: [facility] 03-17-2024 13:24-0400 Body height 157.5 cm Mally Posada MD Work Phone: [facility] 03-17-2024 13:24-0400 Body mass index (BMI) [Ratio] 32.92 kg/m2 Mally Posada MD Work Phone: [facility] 03-17-2024 13:24-0400 Body weight 81.65 kg Mally Posada MD Work Phone: [facility] 02-01-2024 10:55-0400 Diastolic blood pressure 70 mm[Hg] DO Ba Ball Work Phone: [facility] 02-01-2024 10:55-0400 Heart rate 64 /min DO Ba Ball Work Phone: [facility] 02-01-2024 10:55-0400 Respiratory rate 16 /min DO Ba Ball Work Phone: [facility] 02-01-2024 10:55-0400 SaO2% (BldA) [Mass fraction] 95 % DO Ba Ball Work Phone: [facility] 02-01-2024 10:55-0400 Systolic blood pressure 130 mm[Hg] DO Ba Ball Work Phone: [facility] 02-01-2024 10:17-0400 Inhaled oxygen flow rate 3 L/min DO Ba Ball Work Phone: [facility] 02-01-2024 09:40-0400 Body height 157.48 cm DO Ba Ball Work Phone: [facility] 02-01-2024 09:40-0400 Body weight 75.29 kg DO Ba Ball Work Phone: [facility] 01-04-2024 11:25-0400 Diastolic blood pressure 67 mm[Hg] DO Ba Ball Work Phone: [facility] 01-04-2024 11:25-0400 Heart rate 75 /min DO Ba Ball Work Phone: [facility] 01-04-2024 11:25-0400 Respiratory rate 18 /min DO Ba Ball Work Phone: [facility] 01-04-2024 11:25-0400 SaO2% (BldA) [Mass fraction] 98 % DO Ba Ball Work Phone: [facility] 01-04-2024 11:25-0400 Systolic blood pressure 125 mm[Hg] DO Ba Ball Work Phone: [facility] 01-04-2024 10:12-0400 Body height 157.48 cm DO Ba Ball Work Phone: [facility] 01-04-2024 10:12-0400 Body weight 75.29 kg DO Ba Ball Work Phone: [facility] 12-29-2023 09:08-0400 Body height 157.48 cm DO Ba Ball Work Phone: [facility] 12-29-2023 09:08-0400 Body mass index (BMI) [Ratio] 29.9 kg/m2 DO Ba Ball Work Phone: [facility] 12-29-2023 09:08-0400 Body weight 74.38 kg DO Ba Ball Work Phone: [facility] 12-21-2023 11:07-0400 Diastolic blood pressure 77 mm[Hg] DO Ba Ball Work Phone: [facility] 12-21-2023 11:07-0400 Heart rate 69 /min DO Ba Ball Work Phone: [facility] 12-21-2023 11:07-0400 Respiratory rate 18 /min DO Ba Ball Work Phone: [facility] 12-21-2023 11:07-0400 SaO2% (BldA) [Mass fraction] 95 % DO Ba Ball Work Phone: [facility] 12-21-2023 11:07-0400 Systolic blood pressure 146 mm[Hg] DO Ba Ball Work Phone: [facility] 12-21-2023 10:20-0400 Body height 157.48 cm DO Ba Ball Work Phone: [facility] 12-21-2023 10:20-0400 Body weight 76.2 kg DO Ba Ball Work Phone: [facility] 10-13-2023 10:09-0400 Body height 157.48 cm [facility] 10-13-2023 10:09-0400 Body mass index (BMI) [Ratio] 31.2 kg/m2 [facility] 10-13-2023 10:09-0400 Body weight 77.56 kg [facility] 10-13-2023 10:09-0400 Diastolic blood pressure 76 mm[Hg] [facility] 10-13-2023 10:09-0400 Heart rate 88 /min [facility] 10-13-2023 10:09-0400 SaO2% (BldA) [Mass fraction] 98 % [facility] 10-13-2023 10:09-0400 Systolic blood pressure 116 mm[Hg] [facility] 04-06-2023 10:00-0400 Body height 157.48 cm Ba Ball Other [facility] Other 04-06-2023 10:00-0400 Body mass index (BMI) [Ratio] 31.86 kg/m2 Ba Ball Other [facility] [facility] Other 04-06-2023 10:00-0400 Body weight 79.02 kg Ba Billingsley Other [facility] [facility] Other 04-06-2023 10:00-0400 Diastolic blood pressure 73 mm[Hg] Ba Billingsley Other [facility] [facility] Other 04-06-2023 10:00-0400 Respiratory rate 12 /min Ba Billingsley Other [facility] [facility] Other 04-06-2023 10:00-0400 Systolic blood pressure 138 mm[Hg] Ba Billingsley Other [facility] [facility] Other Encounters Encounter Date Encounter Type Care Provider Facility Start: 05-02-2024 End: 05-02-2024 ambulatory [facility] Work Phone: Start: 05-02-2024 End: 05-02-2024 Patient encounter procedure [facility] Work Phone: Start: 04-28-2024 End: 04-28-2024 Postop follow up visit related to original px Mally Posada MD Work Phone: [facility] Comment on above: S/P total knee arthr oplasty, left (Primary Dx); Arthritis of left knee Start: 04-28-2024 End: 04-28-2024 Subsequent hospital visit by physician Genevieve Metz X-Ray 1 [facility] Comment on above: Arthritis of left kn ee Start: 04-28-2024 End: 04-28-2024 [facility] Start: 04-11-2024 End: 04-12-2024 Subsequent hospital visit by physician Mally Posada MD Work Phone: [facility] 6 Comment on above: Unilateral primary o steoarthritis, left knee (Primary Dx); S/P total knee arthroplasty, left Start: 04-07-2024 End: 04-07-2024 ambulatory [facility] Start: 04-07-2024 End: 04-07-2024 Postop follow up visit related to original px Mally Posada MD Work Phone: [facility] Comment on above: Arthritis of left kn ee (Primary Dx) Start: 04-05-2024 End: 04-05-2024 ambulatory DO Ba Billingsley Work Phone: [facility] Work Phone: Start: 04-05-2024 End: 04-05-2024 Encounter for other preprocedural examination [facility] Start: 04-05-2024 End: 04-05-2024 Patient encounter procedure DO Ba Jose Cruz Work Phone: [facility] Work Phone: Start: 04-04-2024 End: 04-04-2024 Preprocedural examination done [facility] Work Phone: Start: 04-04-2024 End: 04-04-2024 Subsequent hospital visit by physician Genevieve Gallegos [address] Comment on above: Pre-op examination Start: 04-04-2024 End: 04-04-2024 Subsequent hospital visit by physician Genevieve Bauman 1 [facility] Comment on above: Acute pain of left k nee Start: 04-04-2024 End: 04-04-[address] [facility] Start: 04-04-2024 End: 04-04-2024 Encounter for other preprocedural examination BA [facility] Start: 03-20-2024 End: 03-20-2024 ambulatory DO Ba Jose Cruz Work Phone: [facility] Work Phone: Start: 03-20-2024 End: 03-20-2024 Encounter for other preprocedural examination [facility] Start: 03-20-2024 End: 03-20-2024 Patient encounter procedure DO Ba Billingsley Work Phone: [facility] Work Phone: Start: 03-18-2024 Patient encounter status DO Be njamin Ball Work Phone: [facility] Start: 03-17-2024 End: 03-17-2024 Subsequent hospital visit by physician Genevieve Metz X-Ray 1 [facility] Comment on above: Acute pain of left k nee Start: 03-17-2024 End: 03-17-2024 Office outpatient new 45 minutes Mally Posada MD Work Phone: [facility] Comment on above: Acute pain of left k nee Start: 03-17-2024 End: 03-17-2024 ambulatory [facility] Start: 02-17-2024 End: 02-17-2024 ambulatory DO Ba Ball Work Phone: [facility] Work Phone: Start: 02-17-2024 End: 02-17-2024 Patient encounter procedure DO Ba Ball Work Phone: [facility] Work Phone: Start: 02-01-2024 Non-patient / Non-visit DO Fortino turcios Ball Work Phone: [facility] Work Phone: Start: 02-01-2024 End: 02-01-2024 Admission to same day surgery center DO Ba Ball Work Phone: [facility] Work Phone: Start: 02-01-2024 End: 02-01-2024 ambulatory DO Ba Ball Work Phone: [facility] Work Phone: Start: 01-31-2024 Non-patient / Non-visit DO Fortino pakin Ball Work Phone: [facility] Work Phone: Start: 01-21-2024 End: 01-21-2024 ambulatory DO Ba Ball Work Phone: [facility] Work Phone: Start: 01-21-2024 End: 01-21-2024 Patient encounter procedure DO Ba Ball Work Phone: [facility] Work Phone: Start: 01-04-2024 Non-patient / Non-visit DO Fortino karolina Ball Work Phone: [facility] Work Phone: Start: 01-04-2024 End: 01-04-2024 Admission to same day surgery center DO Ba Ball Work Phone: [facility] Work Phone: Start: 01-04-2024 End: 01-04-2024 ambulatory DO Ba Ball Work Phone: [facility] Work Phone: Start: 12-29-2023 End: 12-29-2023 ambulatory DO Ba Ball Work Phone: [facility] Work Phone: Start: 12-29-2023 End: 12-29-2023 Patient encounter procedure DO Ba Ball Work Phone: [facility] Work Phone: Start: 12-21-2023 Non-patient / Non-visit DO Fortino karolina Ball Work Phone: [facility] Work Phone: Start: 12-21-2023 End: 12-21-2023 Admission to same day surgery center DO Ba Ball Work Phone: [facility] Work Phone: Start: 12-21-2023 End: 12-21-2023 ambulatory DO Ba Ball Work Phone: [facility] Work Phone: Start: 12-09-2023 End: 12-09-2023 ambulatory [facility] Work Phone: Start: 12-09-2023 End: 12-09-2023 Patient encounter procedure [facility] Work Phone: Start: 11-22-2023 End: 11-22-2023 ambulatory [facility] Work Phone: Start: 11-22-2023 End: 11-22-2023 Patient encounter procedure [facility] Work Phone: Start: 10-19-2023 End: 10-19-2023 ambulatory ERIC FROSTNER Not Available Start: 10-18-2023 Non-patient / Non-visit [facility] Work Phone: Start: 10-13-2023 End: 10-13-2023 Patient encounter procedure [facility] Work Phone: Start: 08-19-2023 End: 08-19-2023 ambulatory Ba Billingsley Facility:[facility] Start: 04-06-2023 End: 04-06-2023 ambulatory Ba Billingsley Other [facility] [employer] Other Start: 04-06-2023 Office outpatient vi sit 25 minutes Ba Billingsley [facility] Start: 10-21-2022 End: 10-21-2022 ambulatory Ba Billingsley Other [facility] Other Start: 10-21-2022 Telephone encounter Ba Billingsley [facility] Start: 10-14-2022 End: 10-15-[address] BA BILLINGSLEY Facility: Start: 09-28-2022 End: 09-28-2022 ambulatory Ba Billingsley Other [facility] Other Start: 09-28-2022 Office outpatient vi sit 15 minutes Ba Billingsley [facility] Start: 09-10-2022 End: 09-10-2022 ambulatory Ba Billingsley Other [facility] [employer] Other Start: 09-10-2022 Office outpatient vi sit 15 minutes Ba Billingsley [facility] Start: 02-17-2022 End: 02-18-[address] CHANO SOTELO Facility:[facility]1 Procedures Date Procedure Procedure Detail Performing Clinician Start: 04-12-2024 Basic metabolic pane l calcium total Mally Posada MD Work Phone: Start: 04-11-2024 Radiologic examinati on knee 1/2 views Mally Posada MD Work Phone: Start: 04-11-2024 PULSE OXIMETRY, CONTINUOUS Howard Duncan MD Work Phone: Start: 04-11-2024 End: 04-11-2024 Arthrp kne condyle&platu medial&lat compartments Mally Posada MD Work Phone: Start: 04-04-2024 Ct lower extremity w /o contrast material Mally Posada MD Work Phone: Start: 04-04-2024 Ecg routine ecg w/le ast 12 lds trcg only w/o i&r Mally Posada MD Work Phone: Start: 02-01-2024 Radiofrequency destr uction of peripheral nerve DO Ba Billingsley Work Phone: Start: 01-04-2024 Local anesthetic ner ve block in lower limb DO Ba Billingsley Work Phone: Start: 12-21-2023 Local anesthetic ner ve block in lower limb DO Ba Billingsley Work Phone: Plan of Treatment Date Care Activity Detail Author Start: 11-12-2027 DTaP/Tdap/Td Vaccine s (6 - Td or Tdap) DTaP/Tdap/Td Vaccines (6 - Td or Tdap) [facility] Start: 04-04-2025 Diabetes mellitus screening Diabetes Screening [facility] Start: 06-02-2024 End: 06-02-2024 Patient encounter procedure 06/02/2024 10:15 AM EST Office Visit [facility] [address] [phone] Mally Posada MD [address] [facility], [address] [place] [id number] [facility] Start: 04-28-2024 End: 04-28-2025 XR Knee - left 3 Views [facility] Service Area Work Phone: Comment on above: Expected: 04/28/2024 , Expires: 04/28/2025 Once for 1 Occurrenc es starting 04/28/2024 until 04/28/2024 Start: 04-28-2024 End: 04-28-2024 Patient encounter procedure 04/28/2024 10:30 AM EST Office Visit [facility] Office [address] [phone] Mally Posada MD [address] [facility], [address] [place] [id number] [facility] Start: 04-11-2024 End: 04-11-2024 Arthrp kne condyle&platu medial&lat compartments Arthroplasty Total Knee Robot-Assisted Unilateral primary osteoarthritis, left knee 04/11/2024 9:45 AM EDT [facility] Start: 04-11-2024 End: 04-11-2024 Arthrp kne condyle&platu medial&lat compartments Arthroplasty Total Knee Robot-Assisted Unilateral primary osteoarthritis, left knee 04/11/2024 8:15 AM EDT [facility] Start: 04-11-2024 End: 04-11-2024 Transcribe Orders [facility] Comment on above: Unilateral primary o steoarthritis, left knee (Primary Dx) Arthroplasty Total K nee Robot-Assisted [90183 (CPT )] Start: 04-07-2024 End: 04-07-2024 Patient encounter procedure 04/07/2024 10:00 AM EDT Office Visit [address] [place] [phone] Jose Landers PA-C [address] [facility], [address] [place] [address], [place] [address] [facility] Start: 04-06-2024 Documentation procedure 2023 Scanned Document [facility] [address] [place] [place] [phone] Mally Posada MD [address] [facility], [address] [place] [address] [phone] [facility] Start: 03-17-2024 End: 03-17-2025 XR Knee - left 4 Views [facility] Service Area Work Phone: Comment on above: Expected: 03/17/2024 , Expires: 03/17/2025 Once for 1 Occurrenc es starting 03/17/2024 until 03/17/2024 Start: 02-13-2024 COVID-19 Vaccine ( season) COVID-19 Vaccine ( season) [facility] Start: 02-01-2024 [facility] Start: 01-04-2024 [facility] Start: 12-21-2023 [facility] Start: 2017 RSV High Risk: (Elde rly (60+) or Population) (1 - 1-dose 75+ series) RSV High Risk: (Elderly (60+) or Population) (1 - 1-dose 75+ series) [facility] Start: 2002 RSV patient s and/or patients aged 60+ years (1 - 1-dose 60+ series) RSV patients and/or patients aged 60+ years (1 - 1-dose 60+ series) [facility] Start: 1992 Zoster Vaccines (1 o f 2) Zoster Vaccines (1 of 2) [facility] Start: 1942 Annual wellness visit Medicare Initial Physical (IPPE) [facility] Start: 1942 Lipid panel Lipid Panel [facility] Start: 1940 Medicare Annual Wellness Visit Medicare Annual Wellness Visit (AWV) [facility] Start: 1940 Screening for osteoporosis Bone Density Scan [facility] Comprehensive metabo lic 2000 panel - Serum or Plasma [facility] ECG 12 Lead ECG 12 Lead ECG Routine Pre-op examination 04/04/2024 11:29 AM EDT [facility] Work Phone: Electrocardiogram, 12-lead PRN ACS symptoms Electrocardiogram, 12-lead PRN ACS symptoms ECG Routine As needed until discontinued starting 04/11/2024 [facility] Work Phone: Comment on above: As needed until disc ontinued starting 04/11/2024 End: 04-11-2024 Incentive spirometry Instruct Incentive spirometry Instruct Respiratory Care Routine Once for 1 Occurrences starting 04/11/2024 until 04/11/2024 [facility] Work Phone: Comment on above: Once for 1 Occurrenc es starting 04/11/2024 until 04/11/[address] [facility] Work Phone: Patient referral [facility] Work Phone: US Heart Transthoracic [facility] US Lower extremity v ein - bilateral [facility] Immunizations Immunization Date Immunization Notes Care Provider Fa cility 03-18-2023 COVID-19 (PFIZER) 12Y and older [facility] 03-09-2023 Influenza vaccine, quadrivalent, adjuvanted [facility] 03-08-2022 COVID-19 Pfizer (bivalent) Ba Billingsley Other [facility] 03-08-2022 COVID-19 Vaccine Pfi zer - Documentation Purposes Only Ba Billingsley Other [facility] 03-02-2022 Influenza vaccine, quadrivalent, adjuvanted [facility] 03-02-2022 influenza virus vaccine, split virus (incl. purified surface antigen) Ba Billingsley Other [facility] [employer] Other 03-02-2022 influenza virus vaccine, unspecified formulation [facility] 03-02-2022 influenza, high dose seasonal, preservative-free Ba Billingsley Other [facility] Other 10-06-2021 COVID-19 Pfizer Ba Oleary jeremías Other [facility] 10-06-2021 COVID-19 Vaccine Pfi zer - Documentation Purposes Only Ba Billingsley Other [facility] 03-26-2021 influenza virus vaccine, split virus (incl. purified surface antigen) Ba Billingsley Other [facility] Other 03-26-2021 influenza virus vaccine, unspecified formulation [facility] 03-26-2021 Seasonal trivalent influenza vaccine, adjuvanted, preservative free [facility] 03-13-2021 COVID-19 Vaccine Pfi zer - Documentation Purposes Only Ba Billingsley Other [facility] 08-01-2020 COVID-19 Vaccine Pfi zer - Documentation Purposes Only Ba Billingsley Other [facility] 07-11-2020 COVID-19 Vaccine Pfi zer - Documentation Purposes Only Ba Billingsley Other [facility] 02-27-2020 influenza virus vaccine, split virus (incl. purified surface antigen) Ba Billingsley Other [facility] Other 02-27-2020 influenza virus vaccine, unspecified formulation [facility] 03-17-2019 influenza virus vaccine, split virus (incl. purified surface antigen) Ba Billingsley Other [facility] Other 03-17-2019 influenza virus vaccine, unspecified formulation [facility] 03-16-2018 influenza virus vaccine, split virus (incl. purified surface antigen) Ba Billingsley Other [facility] Other 03-16-2018 influenza virus vaccine, unspecified formulation [facility] 03-16-2018 Seasonal trivalent influenza vaccine, adjuvanted, preservative free [facility] 11-11-2017 tetanus and diphther ia toxoids, adsorbed, preservative free, for adult use (2 Lf of tetanus toxoid and 2 Lf of diphtheria toxoid) [facility] 11-11-2017 tetanus and diphther ia toxoids, adsorbed, preservative free, for adult use (5 Lf of tetanus toxoid and 2 Lf of diphtheria toxoid) [facility] 11-11-2017 tetanus toxoid, redu wendy diphtheria toxoid, and acellular pertussis vaccine, adsorbed Ba Billingsley Other [employer] Other 03-15-2017 influenza virus vaccine, split virus (incl. purified surface antigen) Ba Billingsley Other [employer] Other 03-15-2017 influenza virus vaccine, unspecified formulation [facility] 03-15-2017 influenza, high dose seasonal, preservative-free [facility] 03-11-2016 influenza virus vaccine, split virus (incl. purified surface antigen) Ba Billingsley Other [employer] Other 03-11-2016 influenza virus vaccine, unspecified formulation [facility] 03-11-2016 influenza, high dose seasonal, preservative-free [facility] 01-23-2016 pneumococcal conjuga te vaccine, 13 valent Ba Billingsley Other [facility] 02-26-2015 influenza virus vaccine, split virus (incl. purified surface antigen) Ba Billingsley Other [employer] Other 02-26-2015 influenza virus vaccine, unspecified formulation [facility] 02-21-2014 tetanus and diphther ia toxoids, adsorbed, preservative free, for adult use (5 Lf of tetanus toxoid and 2 Lf of diphtheria toxoid) Ba Billingsley Other [facility] 03-22-2013 tetanus and diphther ia toxoids, adsorbed, preservative free, for adult use (5 Lf of tetanus toxoid and 2 Lf of diphtheria toxoid) Ba Billingsley Other [facility] 01-14-2011 diphtheria, tetanus toxoids and acellular pertussis vaccine, unspecified formulation Ba Billingsley Other [facility] 05-27-2009 novel [id number], preservative-free, injectable [facility] 03-14-2009 pneumococcal polysaccharide vaccine, 23 valent Ba Billingsley Other [facility] Payers Date Payer Category Payer Self-pay 2020 Miscellaneous or Other [facility] [id number] 2020 Unknown [facility] [id number] 2020-Present [phone] [place] [id number] 2007 Medicare [id number] 1959 Medicare [id number] 1959 Unknown [id number] 2.16.840.1.968325.19 1959 Unknown [id number] 1942 Unknown [id number] 2.16.840.1.010511.3.579.2 .593 1942 Unknown [id number] 2.16.840.1.010567.3.579.2 .593 1942 Unknown [id number] 2.16.840.1.140711.3.579.2 .1259 1942 Unknown [id number] 2.16.840.1.509784.3.579.2 .1244 1942 Unknown [id number] 2.16.840.1.665972.3.579.2 .1244 1942 Unknown [id number] 2.16.840.1.470646.3.579.2 .1244 1942 Unknown [id number] 2.16.840.1.657885.3.579.2 .1246 1942 Unknown [id number] 2.16.840.1.215978.3.579.2 .1246 1942 Unknown [id number] 2.16.840.1.691859.3.579.2 .1245 1942 Unknown [id number] 2.16.840.1.448334.3.579.2 .6 1942 Unknown [id number] 2.16.840.1.643398.3.579.2 .1246 Medicare [id number] 2.16.840.1.621909.19 Unknown [id number] 2.16.840.1.325262.19 Unknown [id number] 2.16.840.1.168288.3.579.2 .531 Unknown [id number] 2.16.840.1.093643.3.579.2 .531 Unknown [id number] 2.16.840.1.900314.3.579.2 .531 Unknown [id number] 2.16.840.1.658874.3.579.2 .531 Social History Date Type Detail Facility Start: 03-17-2024 End: 04-11-2024 Sex Assigned At [facility] Start: 10-13-2023 End: 02-01-2024 Tobacco smoking status NHIS Never smoked tobacco (finding) [facility] Start: 1940 Sex Assigned At Female F [facility] Start: 03-17-2024 Tobacco use and exposure Smokeless tobacco non-user [facility] Work Phone: Start: 03-17-2024 End: 04-11-2024 History of Social function [facility] Start: 1940 [facility] Start: 04-04-2024 End: 04-28-2024 Alcoholic beverage intake Lifetime non-drinker (finding) [facility] Work Phone: Start: 03-25-2024 End: 04-28-2024 Exposure to SARS-CoV-2 (event) Not sure [facility] How often do you nee d to have someone help you when you read instructions, pamphlets, or other written material from your doctor or pharmacy [SILS] Never [facility] Has the Tip or Skip, or [employer] threatened to shut off services in your home in past 12Mo No [facility] Work Phone: Are you now , , , , never or living with a partner? [facility] Work Phone: How often to you hav e a drink containing alcohol? Never [facility] Work Phone: How hard is it for y ou to pay for the very basics like food, housing, medical care, and heating Not very hard [facility] Work Phone: Do you feel stress - tense, restless, nervous, or anxious, or unable to sleep at night because your mind is troubled all the time - these days [OSQ] Not at all [facility] Work Phone: (I/We) worried wheth er (my/our) food would run out before (I/we) got money to buy more. Never true [facility] Work Phone: Start: 05-02-2024 Sex Female (finding) [facility] Procedure Code Equipment Code Equipment Origin al Text Equipment Identifier Dates Cement, Bone, Simplex Hv Full Dose 40 Gm - [id number] Start: 04-11-2024 Patella, Triathl on, Asymmetric X3, Sz-A29 9mm - [id number] Start: 04-11-2024 Fem Comp, Triath Cr Sz3 Left - [id number] Start: 04-11-2024 Insert, Tibial, X3 Triathlon Cs, Sz-3 12mm - [id number] Start: 04-11-2024 Plate, Tibial Tr iath Naheed Emily Fxd Bplt P3 - [id number] Start: 04-11-2024 Goals Date Patient Goal Desired Activity /State Personal health goal Clinical Notes 09-10-2022 to 04-28-2024 Jose Landers PA-C - 04/28/2024 10:30 AM Orlando Burdick RN - 04/12/2024 12:41 PM Teresita Burdick RN - 04/12/2024 12:41 PM Wisam León RN - 04/12/2024 11:43 AM EDTDischarge Instructions Note Date & Type Note Facility 04-28-2024 History of Present illness Narrative Images from the original note were not included. Chief Complaint Patient presents with Left Knee - Post-op Total knee arthroplasty left with robot assistance Rafael History of Present Illness Shanti is an 83-year-old female presenting today for first postop visit following left total knee arthroplasty 04/11/2024. Patient returns today endorsing moderate pain. Does endorse improvements in pain however. Does note a moderate amount of swelling about the distal lower extremity partially attributing this to changes in medications from primary care as she does notice some swelling in her right lower extremity as well. Has been working with physical therapy and increasing her activities and range of motion. Pain has been tolerable with Tylenol. Denies any numbness or tingling. No calf pain, No chest pain or shortness of breath. Exam Moderate swelling Healthy incision, no erythema or drainage ROM: 0-95 + Plantar/dorsiflexion Negative Martínez test X-Ray 3 view left knee radiographs were ordered, performed, interpreted today. Status post total knee arthroplasty. Hardware maintained in appropriate position. No evidence of hardware failure or loosening. No evidence of periprosthetic fracture or lucency. No other acute osseous abnormality appreciated XR knee left 1-2 views Result Date: 04/11/2024 Interpreted By: Pantera Morton, STUDY: XR KNEE LEFT 1-2 VIEWS; 04/11/2024 10:27 am INDICATION: Signs/Symptoms:Post-op knee. COMPARISON: Pre-surgical Left knee series, 17 March 2024 ACCESSION NUMBER(S): [id number] ORDERING CLINICIAN: MALLY POSADA TECHNIQUE: Frontal and cross-table lateral views of the left knee obtained portably in the immediate or near-immediate postoperative setting FINDINGS: No acute unexpected radiographic findings shortly after left total knee arthroplasty with patellar resurfacing; refer to the operative report As above MACRO: None Signed by: Pantera Morton 04/11/2024 10:45 AM Dictation workstation: [id number] ECG 12 Lead Result Date: 04/09/2024 Sinus rhythm with occasional Premature ventricular complexes Cannot rule out Anterior infarct , age undetermined Diffuse NSSTW changes Abnormal ECG No previous ECGs available Confirmed by Oliver Barrett ([id number]) on 04/09/2024 8:22:[address] knee left wo IV contrast Result Date: 04/04/2024 These images are not reportable by radiology and will not be interpreted by Radiologists. Assessment Patient status post left total knee arthroplasty, 2 weeks out Plan Bullard removed today, Steri-Strips applied. Discussed analgesics, encouraging non-opioid modalities. Encouraged ice, rest. Discussed importance of ROM/ formal physical therapy. At home physical therapy approved for 2 more weeks. Provided order for outpatient physical therapy to begin in 2 weeks time. Reviewed dental prophylaxis. Follow-up in 1 month for a motion check. Jose Landers PA-C documented in this encounter [facility] Work Phone: 04-12-2024 Nurse Note Discharge instructions reviewed with patient, spouse and daughter. All verbalized understanding with no further questions. [facility] 04-12-2024 Nurse Note Discharge instructions reviewed with patient, spouse and daughter. All verbalized understanding with no further questions. documented in this encounter [facility] Work Phone: 04-12-2024 History of Present illness Narrative 04/12/24 1143 Discharge Planning Expected Discharge Disposition Home H ([facility]) Patient Choice Provider Choice list and [facility] website (https://medicare.gov/care-compare #search) for post-acute Quality and Resource Measure Data were provided and reviewed with: Patient Patient / Family choosing to utilize agency / facility established prior to hospitalization No Pt's first choice HHC was [facility] in [place]. Referral was sent in [facility], [facility] called and spoke with intake who stated the pt's address is just outside of their covered area. [facility] spoke with pt and family who stated the next choice agency is [facility]. Referral sent in [facility], pending acceptance. UPDATE 1158: [facility] is able to accept. Final HCO attached and sent in [facility]. Pt to dc this afternoon. [facility] confirmed they will contact pt with SOC. Occupational Therapy Evaluation Patient Name: Shanti Zuniga Department: [facility] Room: [address] [place] [address] Today's Date: 04/12/2024 Time Calculation Start Time: 0854 Stop Time: 909 Time Calculation (min): 16 min Assessment: OT Assessment: SBA for mobility, transfers. Mod I for ADL tasks and carryover. Good demo of safety Prognosis: Good Barriers to Discharge: None Evaluation/Treatment Tolerance: Patient tolerated treatment well End of Session Communication: Bedside nurse End of Session Patient Position: Alarm on, Up in chair Prognosis: Good Barriers to Discharge: None Evaluation/Treatment Tolerance: Patient tolerated treatment well Plan: No Skilled OT: No acute OT goals identified OT Frequency: OT eval only OT Discharge Recommendations: No further acute OT OT - OK to Discharge: Yes (when medically stable) Subjective Current Problem: 1. Unilateral primary osteoarthritis, left knee Referral to Home Health CANCELED: Referral to Home Health 2. S/P total knee arthroplasty, left aspirin 81 mg EC tablet oxyCODONE (Roxicodone) 5 mg immediate release tablet docusate sodium (Colace) 100 mg capsule cyclobenzaprine (Flexeril) 5 mg tablet General: General Reason for Referral: ADL impairment s/p L TKA Referred By: Sharron Past Medical History Relevant to Rehab: CHILANGO, CPAP, HTN, OA, depression, anxiety, GERD, R TKA Family/Caregiver Present: No Prior to Session Communication: Bedside nurse Patient Position Received: Up in chair, Alarm on General Comment: pt. is 83 y/o female s/p L TKA with Dr. Posada. Precautions: LE Weight Bearing Status: Weight Bearing as Tolerated Medical Precautions: Fall precautions Precautions Comment: KI until SLR Pain: Pain Assessment Pain Assessment: 0-10 0-10 (Numeric) Pain Score: 6 Pain Type: Surgical pain Pain Location: Knee Pain Orientation: Left Objective Cognition: Overall Cognitive Status: Within Functional Limits Orientation Level: Oriented X4 Home Living: Home Living Comments: Pt. lives with (daughter staying with them right now) in one story house. Walk in shower with seat and grab bars. Prior Function: Prior Function Comments: pt. independent with ADLs, shares/assist with IADLs. No falls. Does not drive. uses cane for ambulation. ADL: Eating Assistance: Independent Grooming Assistance: Independent Bathing Assistance: Modified independent (Device) UE Dressing Assistance: Independent LE Dressing Assistance: Independent Toileting Assistance with Device: Modified independent Activity Tolerance: Endurance: Decreased tolerance for upright activites Bed Mobility/Transfers: Bed Mobility Bed Mobility: No Transfers Transfer: Yes Transfer 1 Technique 1: Sit to stand Transfer Device 1: Walker Trials/Comments 1: SBA for safety; VCs for safe hand placement Functional Mobility: Functional Mobility Functional Mobility Performed: (functional distances in room with WW. SBA for safety. Verbal cues for step sequencing with walker for safety) Standing Balance: Dynamic Standing Balance Dynamic Standing-Comments: Fair + Sensation: Sensation Comment: no deficits identified Strength: Strength Comments: BUEs WNL MMT Coordination: Movements are Fluid and Coordinated: Yes Coordination Comment: WNL Hand Function: Gross Grasp: Functional Extremities: RUE RUE : Within Functional Limits and LUE LUE: Within Functional Limits Outcome Measures:[facility] Daily Activity Putting on and taking off regular lower body clothing: None Bathing (including washing, rinsing, drying): None Putting on and taking off regular upper body clothing: None Toileting, which includes using toilet, bedpan or urinal: None Taking care of personal grooming such as brushing teeth: None Eating Meals: None Daily Activity - Total Score: 24 Education Documentation ADL Training, taught by Alexia Hickey OT at 04/12/2024 10:29 AM. Learner: Patient Readiness: Acceptance Method: Explanation Response: Verbalizes Understanding, Demonstrated Understanding Comment: LB dressing, ADL safety, walker use during ADLs. IP EDUCATION: Education Individual(s) Educated: Patient Education Provided: Fall precautons, Risk and benefits of OT discussed with patient or other, POC discussed and agreed upon Images from the original note were not included. Orthopedic Surgery Progress Note TKA Subjective: Post-Operative Day # 1 Status Post left Total Knee Arthroplasty Systemic or Specific Complaints: No Complaints Objective: Visit Vitals BP 122/58 (Patient Position: Sitting) Pulse 66 Temp 35.9 C (96.6 F) Resp 18 General: alert and oriented, in no acute distress, appears stated age, and cooperative Wound: no erythema, no edema, no drainage, and dressing clean, dry, and intact. RN reported she did change mepilex overnight d/t drainage but without drainage this morning. Motion: Painful range of Motion DVT Exam: No evidence of DVT seen on physical exam. Negative Martínez's sign. No significant calf/ankle edema. left knee swollen but thigh soft to palpation. Strong equal dorsi/plantar flexion bilaterally. Good distal pulses bilaterally. Data Review Recent Results (from the past 24 hours) CBC Collection Time: 04/12/24 6:00 AM Result Value Ref Range WBC 10.6 4.4 - 11.3 x10*3/uL nRBC 0.0 0.0 - 0.0 /100 WBCs RBC 3.53 (L) 4.00 - 5.20 x10*6/uL Hemoglobin 11.0 (L) 12.0 - 16.0 g/dL Hematocrit 32.9 (L) 36.0 - 46.0 % MCV 93 80 - 100 fL MCH 31.2 26.0 - 34.0 pg MCHC 33.4 32.0 - 36.0 g/dL RDW 12.1 11.5 - 14.5 % Platelets 194 150 - 450 x10*3/uL Basic metabolic panel Collection Time: 04/12/24 6:00 AM Result Value Ref Range Glucose 110 (H) 74 - 99 mg/dL Sodium 135 (L) 136 - 145 mmol/L Potassium 4.0 3.5 - 5.3 mmol/L Chloride 105 98 - 107 mmol/L Bicarbonate 24 21 - 32 mmol/L Anion Gap 10 10 - 20 mmol/L Urea Nitrogen 22 6 - 23 mg/dL Creatinine 0.93 0.50 - 1.05 mg/dL eGFR 62 >60 mL/min/1.73m*2 Calcium 8.4 (L) 8.6 - 10.3 mg/dL Assessment: Status Post left Total Knee Arthroplasty. Doing well postoperatively. No acute events overnight. Acute postoperative pain: Reports mild to moderate pain to operative extremity. Exacerbated by movement, relieved by rest ice and pain medication. Continue current pain management. Plan: 1. Discharge today. Follow up in office in 2 weeks. 2. Continue Deep venous thrombosis prophylaxis: Aspirin 81 mg BID for 30 days 3. Continue physical therapy: Weight-bearing as tolerated with use of walker for assistance with ambulation 4. Continue Pain Control: scripts sent 5. Discharge planning: patient plans to return to home with outgoing home care at discharge, orders placed. JENNIFER and LAURA following for discharge planning. JONNY Lester 04/12/2024 8:53 AM 04/11/24 1131 Discharge Planning Living Arrangements Spouse/significant other Support Systems Spouse/significant other;Family members Assistance Needed TWISTER HAND - lives at home with her in a 1 level home, 2 PAVAN with HR. Walk in shower with seat and grab bar. Independent with ambuation and ADLs, uses cane. Some assistance from spouse with IADLs. Owns wlaker and cane. Family drives. Type of Residence Private residence Number of Stairs to Enter Residence 2 Number of Stairs Within Residence 0 Do you have animals or pets at home? Yes Home or Post Acute Services In home services Type of Home Care Services Home PT;Home OT Expected Discharge Disposition Home H Does the patient need discharge transport arranged? No Patient Choice Provider Choice list and [facility] website (https://medicare.gov/care-compare #search) for post-acute Quality and Resource Measure Data were provided and reviewed with: Patient Patient / Family choosing to utilize agency / facility established prior to hospitalization No POD 0 for left total knee with Dr Mally Posada. PT AMPAC of 16, recommending low intensity needs at or. TCC spoke with pt and family who confirmed the preference is home with [facility]. Choice list provided from [facility]. Will meet back with pt regarding choice. Physical Therapy Physical Therapy Evaluation Patient Name: Shanti Zuniga Today's Date: 04/11/2024 Time Calculation Start Time: 1400 Stop Time: 1440 Time Calculation (min): 40 min 604/604-A Assessment/Plan PT Assessment PT Assessment Results: Decreased strength, Decreased range of motion, Decreased endurance, Impaired balance, Decreased mobility, Decreased coordination, Pain Rehab Prognosis: Good Evaluation/Treatment Tolerance: Patient limited by fatigue, Patient limited by pain Barriers to Participation: Comorbidities End of Session Communication: Bedside nurse Assessment Comment: pt with decreased mobility/gait strength balance, endurance and ROM . pt to benefit from skilled PT to address deficits and improve functional mobility . End of Session Patient Position: Up in chair, Alarm on IP OR SWING BED PT PLAN Inpatient or Swing Bed: Inpatient PT Plan Treatment/Interventions: Bed mobility, Transfer training, Gait training, Stair training, Balance training, Strengthening, Endurance training, Range of motion, Therapeutic exercise, Therapeutic activity, Home exercise program PT Plan: Ongoing PT PT Frequency: BID PT Discharge Recommendations: Low intensity level of continued care PT Recommended Transfer Status: Assist x1, Assistive device PT - OK to Discharge: Yes Subjective Current Problem: 1. Unilateral primary osteoarthritis, left knee Referral to Home Health CANCELED: Referral to Home Health Patient Active Problem List Diagnosis Unilateral primary osteoarthritis, left knee HTN (hypertension) Class 1 obesity in adult CHILANGO (obstructive sleep apnea) Anxiety Gastroesophageal reflux disease Asthma S/P total knee arthroplasty, left General Visit Information: General Reason for Referral: S/P L TKA Referred By: OT/PT Dr. Posada 04/11 Past Medical History Relevant to Rehab: CHILANGO,CPAP,HTN,OA,depression,, anxiety, GERD,R TKA . Prior to Session Communication: Bedside nurse (cleared to see for PT eval) Patient Position Received: Bed, 3 rail up, Alarm on (pt has purwick and L knee immobilizer) General Comment: pt is an 83 yo female came to the hospital today for an elective L TKA with . pt currently WBAT L LE . Home Living: Home Living Home Living Comments: pt lives at home with her in a 1 level home 2 steps with rail to enter. pt has a walk in shower with seat and grab bar. Prior Level of Function: Prior Function Per Pt/Caregiver Report Prior Function Comments: per pt IND with all mobility using a SPC IND,adls and assistance with iadls. has a FWW and SPC no fall doesnt drive . Precautions: Precautions LE Weight Bearing Status: Weight Bearing as Tolerated Medical Precautions: Fall precautions Objective Pain: Pain Assessment Pain Assessment: 0-10 0-10 (Numeric) Pain Score: 1 Pain Type: Surgical pain Pain Location: Knee Pain Orientation: Left Cognition: Cognition Overall Cognitive Status: Within Functional Limits Orientation Level: Oriented X4 General Assessments: Activity Tolerance Endurance: Tolerates less than 10 min exercise with changes in vital signs Sensation Sensation Comment: intact BLEs Coordination Movements are Fluid and Coordinated: Yes Static Sitting Balance Static Sitting-Comment/Number of Minutes: fair Dynamic Sitting Balance Dynamic Sitting-Comments: fair Static Standing Balance Static Standing-Comment/Number of Minutes: fair Dynamic Standing Balance Dynamic Standing-Comments: fair Functional Assessments: Bed Mobility Bed Mobility: Yes Bed Mobility 1 Bed Mobility 1: Supine to sitting, Scooting Level of Assistance 1: Minimum assistance Bed Mobility Comments 1: min A to EOB Transfers Transfer: Yes Transfer 1 Technique 1: Sit to stand, Stand to sit Transfer Device 1: Walker Transfer Level of Assistance 1: Minimum assistance Trials/Comments 1: cues to push up and reach back with transfers . immob on L Knee Ambulation/Gait Training Ambulation/Gait Training Performed: Yes Ambulation/Gait Training 1 Surface 1: Level tile Device 1: Rolling walker Assistance 1: Minimum assistance Quality of Gait 1: Decreased step length, Inconsistent stride length Comments/Distance (ft) 1: 30ft x 2 with FWW min A immobilizer on L knee. cues to to stay within DEIDRA of walker. Extremity/Trunk Assessments: RLE RLE : Within Functional Limits LLE LLE : Exceptions to WFL AROM LLE (degrees) L Knee Flexion 0-130: 85 L Knee Extension 0-130: -5 Strength LLE L Hip Flexion: 3+/5 L Hip Extension: 3+/5 L Hip ABduction: 3+/5 L Hip ADduction: 3+/5 L Knee Flexion: 2+/5 L Knee Extension: 2+/5 L Ankle Dorsiflexion: 3+/5 L Ankle Plantar Flexion: 3+/5 Outcome Measures: [facility] Basic Mobility Turning from your back to your side while in a flat bed without using bedrails: A little Moving from lying on your back to sitting on the side of a flat bed without using bedrails: A little Moving to and from bed to chair (including a wheelchair): A little Standing up from a chair using your arms (e.g. wheelchair or bedside chair): A little To walk in hospital room: A little Climbing 3-5 steps with railing: Total Basic Mobility - Total Score: 16 Treatment : supine thera ex 1x10 BLEs : ankle pumps,quad sets, SAQs, heel slides, SLR Glute sets. Goals: Encounter Problems Encounter Problems (Active) PT Problem Pt will demonstrate MOD I with bed mobility to edge of bed. Start: 04/11/24 Expected End: 04/18/24 Pt will demonstrate mod I with sit to stand/chair transfers with FWW. Start: 04/11/24 Expected End: 04/18/24 Pt will ambulate 150 feet with FWW MOD I . Start: 04/11/24 Expected End: 04/18/24 Pt to demo 0-100 AROM of L Knee Start: 04/11/24 Expected End: 04/18/24 Pt to demo 2 steps with rails with SBA Start: 04/11/24 Expected End: 04/18/24 Patient will demonstrate independence in home program for support of progression Start: 04/11/24 Expected End: 04/18/24 Pain - Adult Education Documentation Home Exercise Program, taught by Reymundo Islas PT at 04/11/2024 2:51 PM. Learner: Patient Readiness: Acceptance Method: Explanation Response: Verbalizes Understanding Mobility Training, taught by Reymundo Islas PT at 04/11/2024 2:51 PM. Learner: Patient Readiness: Acceptance Method: Explanation Response: Verbalizes Understanding Education Comments No comments found. documented in this encounter [facility] Work Phone: 04-12-2024 Miscellaneous Notes Problem: Pain - Adult Goal: Verbalizes/displays adequate comfort level or baseline comfort level Outcome: Progressing Problem: Safety - Adult Goal: Free from fall injury Outcome: Progressing Problem: Chronic Conditions and Co-morbidities Goal: Patient's chronic conditions and co-morbidity symptoms are monitored and maintained or improved Outcome: Progressing Problem: Fall/Injury Goal: Not fall by end of shift Outcome: Progressing Goal: Be free from injury by end of the shift Outcome: Progressing Goal: Verbalize understanding of personal risk factors for fall in the hospital Outcome: Progressing Goal: Verbalize understanding of risk factor reduction measures to prevent injury from fall in the home Outcome: Progressing Goal: Use assistive devices by end of the shift Outcome: Progressing Goal: Pace activities to prevent fatigue by end of the shift Outcome: Progressing The patient's goals for the shift include comfort and rest The clinical goals for the shift include pain mangement Over the shift, the patient did make progress toward the following goals. Barriers to progression include none. Recommendations to address these barriers include none. Arthroplasty Total Knee Robot-Assisted (L) Operative Note Date: 04/11/2024 OR Location: [facility] Name: Shanti Zuniga, : 1940, Age: 83 y.o., , Sex: female Diagnosis Pre-op Diagnosis * Unilateral primary osteoarthritis, left knee [M17.12] Post-op Diagnosis * Unilateral primary osteoarthritis, left knee [M17.12] Procedures Total knee arthroplasty left with robot assistance Rafael [place] ARTHRP KNE CONDYLE&PLATU MEDIAL&LAT COMPARTMENTS [[id number]] [place] CPTR-ASST SURGICAL NAVIGATION IMAGE-LESS [[id number]] Surgeons * Mally Posada - Primary Resident/Fellow/Other Electrostatic Powder Coating Technician: Surgeons and Role: * Jose Landers PA-C - Assisting Procedure Summary Anesthesia: Regional, Spinal ASA: III Anesthesia Staff: Anesthesiologist: Howard Duncan MD TUBE HEATER: hCarla Head APRN-TUBE HEATER Estimated Blood Loss: 50mL Intra-op Medications: Administrations occurring from 0815 to 0930 on 04/11/24: Medication Name Total Dose mdyhdwtaogo-ggigjiesmgq-kupboylph- ketorolac 2.46-0.005- 0.0008-0.3mg/mL periarticular syringe 100 mL vancomycin (Vancocin) vial for injection 1 g lactated Ringer's infusion 65 mL phenylephrine 100 mcg/mL syringe 10 mL (prefilled) 400 mcg Anesthesia Record Intraprocedure I/O Totals Intake Propofol Drip 0.00 mL The total shown is the total volume documented since Anesthesia Start was filed. lactated Ringer's infusion 900.00 mL Total Intake 900 mL Specimen: No specimens collected Staff: Demolition Worker: Jen Guerra Person: Yarely Drains and/or Catheters: * None in log * Tourniquet Times: Total Tourniquet Time Documented: Thigh (Left) - 92 minutes Total: Thigh (Left) - 92 minutes Implants: Implants Type Name Action Serial No. Implant CEMENT, BONE, SIMPLEX HV FULL DOSE 40 GM - [id number] Implanted Joint PATELLA, TRIATHLON, ASYMMETRIC X3, SZ-A29 9MM - [id number] Implanted Joint FEM COMP, TRIATH CR SZ3 LEFT - [id number] Implanted Joint INSERT, TIBIAL, X3 TRIATHLON CS, SZ-3 12MM - [id number] Implanted Joint PLATE, TIBIAL TRIATH NAHEED EMILY FXD BPLT P3 - [id number] Implanted Findings: see procedure details Components: Triathlon cruciate retaining femoral component size 3, triathlon primary tibial baseplate size 3, triathlon tibial bearing insert CS 12 mm, triathlon asymmetric patella 29 Operative findings: Severe degenerative joint disease left knee severe valgus deformity, 20 degree flexion contracture, severe valgus deformity Operative Indications: Failed multiple non-surgical modalities and great difficulty performing activities of daily living as indicated in pre-operative notes. Operative Procedure: Patient was met prior to surgery in pre-operative holding. The appropriate extremity was marked and recent health status was reviewed and we found no contraindication to proceeding with the scheduled procedure. We again reviewed the risks of infection, wound issues, deep venous thrombosis, pulmonary embolism, medical complications including cardiac and pulmonary, neurologic and vascular injury and incomplete relief of pre-operative pain. The patient then underwent regional anesthesia in pre-op holding. The patient was transported to the operating room. A thigh tourniquet was placed and a small bump on the buttock. The patient was resting comfortably in a supine position with all valdo prominences well padded. Sequential compression device was placed on the contralateral lower extremity. An exam under anesthesia was performed to evaluate the patient s range of motion and ligamentous integrity. The patient was prepped and draped in the usual sterile fashion. The leg was placed in a leg moreno after appropriate padding. After prep, drape, antibiotic and time out, the leg was exsanguinated and the tourniquet inflated. A longitudinal incision was made over the anterior knee. The dissection was carried out down through the skin and subcutaneous tissue. A medial parapatellar arthrotomy was performed. An effusion and synovitis was noted compatible with the grade IV changes of the articular cartilage was found. The fat pad was de-bulked, Burnet s line was marked and some of the deep medial collateral ligament was released from the tibia. The ACL was resected. The knee was flexed up and medial and lateral retractors were placed to protect the collateral ligaments and popliteus tendon. We then placed two pins distal to the medial joint line in the tibia (intra-incisional) unicortical directed in a posterolateral direction. We placed two pins proximal and medial in the femur within the incision. Two arrays were placed and the registration and check points were completed. The checkpoints were then registered on the femur and the tibia. Once this was complete we used the spacers, quiroga elevator and manual stress to confirm ideal balancing and resection. Once this was completed we adjusted the resection and rotation to match our pre-operative plan with our intraoperative data. The robot was draped in sterile fashion and brought into the field. The saw was registered and check points confirmed. The saw was used to complete the cuts. Retractors were used to protect the MCL and patellar tendon. The haptic feedback removed any aberrant cuts and all cuts were consistent with the preoperative plan. After the tibial cut was completed, we removed the remaining menisci. Using a curved osteotome posterior osteophytes were carefully removed from the femur. We then assessed the flexion and extension gaps using trial spacer blocks. Balancing the knee involved the following steps: Limited MCL release, removal of osteophytes With symmetric gaps we progressed to placing trial implants. A trial tibial component was placed with care to avoid overhang. The rotation was set in line with the medial third of the tibial tubercle. A trial femoral component was then placed, followed by a trial articular surface. The knee was taken through range of motion with the provisional components. The flexion and extension gaps were evaluated, as well as the patellar tracking and mid-flexion stability. The patella was everted and ~11 mm of bone were removed from the thickest portion using a free hand saw. This was confirmed with caliper. The lug holes were drilled in the patella and femur. The tibia was prepared with the drill and broach after confirmation of alignment using a drop dominique. The sclerotic areas of the bone were drilled using a small drill bit. The capsule around the knee was injected using a long acting local anesthetic. The arrays were all removed including the checkpoints on both the femur and the tibia. The cement (Thinknum simplex) was mixed in a vacuum sealed fashion while the bone was pulsatile lavaged. The bone was dried and the implants were placed with a gentle posterior directed force and a clamp on the patella. The excess cement was removed. After the cement dried the gap balancing was reassessed prior to placing the final articular surface. The proud cement mantle was removed using a small osteotome. The knee was then copiously lavaged with sterile saline and Irrisept (0.05% chlorhexidine gluconate). The tourniquet was taken down and hemostasis was obtained using Bovie electrocautery and tranexamic acid (per protocol). No significant bleeders were encountered and the usage of a drain was not felt to be necessary. A layered closure was performed using 1 Vicryl and 1 Stratafix in the retinacular layer and quadriceps tendon. 2-0 vicryl in the deep dermal layer and monofilament in the skin. An adherent, water proof dressing was placed followed by Webril and an cooper bandage. All counts were reported as correct. The patient was stable to the post anesthesia care unit. Complications: none Estimated blood loss: 50 ml Specimens: None Postop plan Weight-bear as tolerated PT OT Range of motion as tolerated Aspirin 81 mg p.o. twice daily X-rays at follow-up 3 views operative knee Complications: None; patient tolerated the procedure well. Disposition: PACU - hemodynamically stable. Condition: stable Jose Landers PA-C was present for the entire case. Given the nature of the procedure and disease process a skilled surgical pathologist was necessary for the case. The speech pathologist assistant was necessary for retraction and helped directly facilitate completion of the surgery. A certified lactation counselor was at the back table managing instruments and supplies for the surgical procedure. Mally Posada documented in this encounter [facility] Work Phone: 04-12-2024 Plan of care note Problem: Pain - Adult Goal: Verbalizes/displays adequate comfort level or baseline comfort level Outcome: Progressing Problem: Safety - Adult Goal: Free from fall injury Outcome: Progressing Problem: Chronic Conditions and Co-morbidities Goal: Patient's chronic conditions and co-morbidity symptoms are monitored and maintained or improved Outcome: Progressing Problem: Fall/Injury Goal: Not fall by end of shift Outcome: Progressing Goal: Be free from injury by end of the shift Outcome: Progressing Goal: Verbalize understanding of personal risk factors for fall in the hospital Outcome: Progressing Goal: Verbalize understanding of risk factor reduction measures to prevent injury from fall in the home Outcome: Progressing Goal: Use assistive devices by end of the shift Outcome: Progressing Goal: Pace activities to prevent fatigue by end of the shift Outcome: Progressing [facility] Work Phone: 04-12-2024 Hospital course Narrative Images from the original note were not included. Discharge summary This patient Shanti Zuniga was admitted to the hospital on 04/11/2024 after undergoing Procedure(s) (LRB): Arthroplasty Total Knee Robot-Assisted (Left) without complications that morning. During the postoperative period,while in hospital, patient was medically managed by the hospitalist. Please see medial notes and H&P for patients additional diagnoses. Ortho agrees with all medical diagnoses and treatments while patient in hospital. No significant or unexpected findings or abnormal ortho imaging were noted during the hospital stay Hospital course Patient tolerated surgical procedure well and there was no complications. Patient progressed adequately through their recovery during hospital stay including PT and rehabilitation. Patient was then D/C on to home in stable condition. Patient was instructed on the use of pain medications, the signs and symptoms of infection, and was given our number to call should they have any questions or concerns following discharge. Based on my clinical judgment, the patient was provided with a 7-day prescription for opioid medication at 30 MED, indicated for treatment of acute pain in the setting of recent surgery. OARRS report was run and has demonstrated an appropriate time course. The patient has been provided with counseling pertaining to safe use of opioid medication. Patient may WBAT to operative extremity with use of walker for assistance with ambulation Mepilex dressing to be removed POD#7 and incision left open to air Aspirin 81 mg BID for DVT prophylaxis started on 04/11/24 and to be taken for 30 days Follow up with surgeon in 2 weeks documented in this encounter [facility] Work Phone: 04-11-2024 Plan of care note The patient's goals for the shift include comfort and rest The clinical goals for the shift include pain mangement Over the shift, the patient did make progress toward the following goals. Barriers to progression include none. Recommendations to address these barriers include none. [facility] 04-11-2024 Hospital Discharge instructions Mey Guzmán APRN-PEER TUTOR - 04/11/2024 9:02 AM EDT Images from the original note were not included. Total Knee Replacement Discharge Instructions To prevent Clot formation, you have been placed on the following medication: ASA for 30 days started on 04/11/24 Surgical Site Care: .Change dressing once a day and PRN (as needed). Apply 4 x 4 sponge and light tape. If glue present, leave open to air. You may leave wound open to air after initial dressing removal, if wound is clean, dry and intact If Aquacel Ag dressing is present, do not remove dressing for 7 days, unless heavily saturated. If heavily saturated, remove dressing and start using instructions above Nicolette will be removed on post-operative day 14 and steri-strips applied Showering is permitted starting POD1 if waterproof Aquacel dressing is present or when the incision is covered with 4 x 4 and Tegaderm waterproof dressing Until all areas of incision are healed. Physical Therapy: Weight Bearing Status: WBAT Precautions, Per Physical Therapy Handout Pain Medications You were given oxycodone (Oxycontin, Oxyir) Wean off pain medications as you deem appropriate as long as pain is under control Cold packs/Ice packs/Machine May be used 3 times daily for 15-30 minutes as necessary Be sure to have a barrier (cloth, clothing, towel) between the site and the ice pack to prevent frostbite [facility] office if Increased redness, swelling, drainage of any kind, and/or pain to surgery site. As well as new onset fevers and or chills. These could signify an infection. Calf or thigh tenderness to touch as well as increased swelling or redness. This could signify a clot formation. Numbness or tingling to an area around the incision site or below the incision site (toes). Any rash appears, increased or new onset nausea/vomiting occur. This may indicate a reaction to a medication. . Follow up with Dr. Posada I acknowledge that I have received papa hose and understand the instructions on how and when to wear them (on during the day, off at night) Discharging RN who has gone over instructions and acknowledges papa hose have been received documented in this encounter [facility] Work Phone: 04-11-2024 Note Formatting of this n ote is different from the original. Arthroplasty Total Knee Robot-Assisted (L) Operative Note Date: 04/11/2024 OR Location: [facility] Name: Shanti Zuniga, : 1940, Age: 83 y.o., , Sex: female Diagnosis Pre-op Diagnosis * Unilateral primary osteoarthritis, left knee [M17.12] Post-op Diagnosis * Unilateral primary osteoarthritis, left knee [M17.12] Procedures Total knee arthroplasty left with robot assistance [place] ARTHRP KNE CONDYLE&PLATU MEDIAL&LAT COMPARTMENTS [[id number]] [place] CPTR-ASST SURGICAL NAVIGATION IMAGE-LESS [[id number]] Surgeons * Mally Posada - Primary Resident/Fellow/Other Electrostatic Powder Coating Technician: Surgeons and Role: * Jose Landers PA-C - Assisting Procedure Summary Anesthesia: Regional, Spinal ASA: III Anesthesia Staff: Anesthesiologist: Howard Duncan MD TUBE HEATER: NELIDA Maldonado Estimated Blood Loss: 50mL Intra-op Medications: Administrations occurring from 0815 to 0930 on 04/11/24: Medication Name Total Dose yxusguiasvx-qsowbmhfalg-grhdphswg- ketorolac 2.46-0.005- 0.0008-0.3mg/mL periarticular syringe 100 mL vancomycin (Vancocin) vial for injection 1 g lactated Ringer's infusion 65 mL phenylephrine 100 mcg/mL syringe 10 mL (prefilled) 400 mcg Anesthesia Record Intraprocedure I/O Totals Intake Propofol Drip 0.00 mL The total shown is the total volume documented since Anesthesia Start was filed. lactated Ringer's infusion 900.00 mL Total Intake 900 mL Specimen: No specimens collected Staff: Demolition Worker: Jen Guerra Person: Yarely Drains and/or Catheters: * None in log * Tourniquet Times: Total Tourniquet Time Documented: Thigh (Left) - 92 minutes Total: Thigh (Left) - 92 minutes Implants: Implants Type Name Action Serial No. Implant CEMENT, BONE, SIMPLEX HV FULL DOSE 40 GM - [id number] Implanted Joint PATELLA, TRIATHLON, ASYMMETRIC X3, SZ-A29 9MM - [id number] Implanted Joint FEM COMP, TRIATH CR SZ3 LEFT - [id number] Implanted Joint INSERT, TIBIAL, X3 TRIATHLON CS, SZ-3 12MM - [id number] Implanted Joint PLATE, TIBIAL TRIATH NAHEED EMILY FXD BPLT P3 - [id number] Implanted Findings: see procedure details Components: Triathlon cruciate retaining femoral component size 3, triathlon primary tibial baseplate size 3, triathlon tibial bearing insert CS 12 mm, triathlon asymmetric patella 29 Operative findings: Severe degenerative joint disease left knee severe valgus deformity, 20 degree flexion contracture, severe valgus deformity Operative Indications: Failed multiple non-surgical modalities and great difficulty performing activities of daily living as indicated in pre-operative notes. Operative Procedure: Patient was met prior to surgery in pre-operative holding. The appropriate extremity was marked and recent health status was reviewed and we found no contraindication to proceeding with the scheduled procedure. We again reviewed the risks of infection, wound issues, deep venous thrombosis, pulmonary embolism, medical complications including cardiac and pulmonary, neurologic and vascular injury and incomplete relief of pre-operative pain. The patient then underwent regional anesthesia in pre-op holding. The patient was transported to the operating room. A thigh tourniquet was placed and a small bump on the buttock. The patient was resting comfortably in a supine position with all valdo prominences well padded. Sequential compression device was placed on the contralateral lower extremity. An exam under anesthesia was performed to evaluate the patient s range of motion and ligamentous integrity. The patient was prepped and draped in the usual sterile fashion. The leg was placed in a leg moreno after appropriate padding. After prep, drape, antibiotic and time out, the leg was exsanguinated and the tourniquet inflated. A longitudinal incision was made over the anterior knee. The dissection was carried out down through the skin and subcutaneous tissue. A medial parapatellar arthrotomy was performed. An effusion and synovitis was noted compatible with the grade IV changes of the articular cartilage was found. The fat pad was de-bulked, Burnet s line was marked and some of the deep medial collateral ligament was released from the tibia. The ACL was resected. The knee was flexed up and medial and lateral retractors were placed to protect the collateral ligaments and popliteus tendon. We then placed two pins distal to the medial joint line in the tibia (intra-incisional) unicortical directed in a posterolateral direction. We placed two pins proximal and medial in the femur within the incision. Two arrays were placed and the registration and check points were completed. The checkpoints were then registered on the femur and the tibia. Once this was complete we used the spacers, quiroga elevator and manual stress to confirm ideal balancing and resection. Once this was completed we adjusted the resection and rotation to match our pre-operative plan with our intraoperative data. The robot was draped in sterile fashion and brought into the field. The saw was registered and check points confirmed. The saw was used to complete the cuts. Retractors were used to protect the MCL and patellar tendon. The haptic feedback removed any aberrant cuts and all cuts were consistent with the preoperative plan. After the tibial cut was completed, we removed the remaining menisci. Using a curved osteotome posterior osteophytes were carefully removed from the femur. We then assessed the flexion and extension gaps using trial spacer blocks. Balancing the knee involved the following steps: Limited MCL release, removal of osteophytes With symmetric gaps we progressed to placing trial implants. A trial tibial component was placed with care to avoid overhang. The rotation was set in line with the medial third of the tibial tubercle. A trial femoral component was then placed, followed by a trial articular surface. The knee was taken through range of motion with the provisional components. The flexion and extension gaps were evaluated, as well as the patellar tracking and mid-flexion stability. The patella was everted and ~11 mm of bone were removed from the thickest portion using a free hand saw. This was confirmed with caliper. The lug holes were drilled in the patella and femur. The tibia was prepared with the drill and broach after confirmation of alignment using a drop dominique. The sclerotic areas of the bone were drilled using a small drill bit. The capsule around the knee was injected using a long acting local anesthetic. The arrays were all removed including the checkpoints on both the femur and the tibia. The cement (Thinknum simplex) was mixed in a vacuum sealed fashion while the bone was pulsatile lavaged. The bone was dried and the implants were placed with a gentle posterior directed force and a clamp on the patella. The excess cement was removed. After the cement dried the gap balancing was reassessed prior to placing the final articular surface. The proud cement mantle was removed using a small osteotome. The knee was then copiously lavaged with sterile saline and Irrisept (0.05% chlorhexidine gluconate). The tourniquet was taken down and hemostasis was obtained using Bovie electrocautery and tranexamic acid (per protocol). No significant bleeders were encountered and the usage of a drain was not felt to be necessary. A layered closure was performed using 1 Vicryl and 1 Stratafix in the retinacular layer and quadriceps tendon. 2-0 vicryl in the deep dermal layer and monofilament in the skin. An adherent, water proof dressing was placed followed by Webril and an cooper bandage. All counts were reported as correct. The patient was stable to the post anesthesia care unit. Complications: none Estimated blood loss: 50 ml Specimens: None Postop plan Weight-bear as tolerated PT OT Range of motion as tolerated Aspirin 81 mg p.o. twice daily X-rays at follow-up 3 views operative knee Complications: None; patient tolerated the procedure well. Disposition: PACU - hemodynamically stable. Condition: stable Jose Landers PA-C was present for the entire case. Given the nature of the procedure and disease process a skilled surgical pathologist was necessary for the case. The speech pathologist assistant was necessary for retraction and helped directly facilitate completion of the surgery. A certified lactation counselor was at the back table managing instruments and supplies for the surgical procedure. Mally Posada [facility] Work Phone: 04-11-2024 History and physical note Orthopedics History and Physical Patient: Shanti Zuniga Unit/Bed: [facility] Date of : 1940 Acct: [id number] Admitting Diagnosis: Unilateral primary osteoarthritis, left knee [M17.12] Date: 04/11/2024 Hospital Day: 0 Attending: Mally Posada MD Complaint: No chief complaint on file. History of Present Illness: 83-year-old female presents today for left total knee arthroplasty. She is obtain medical clearance prior primary care physician at [facility]. Patient is medically optimized for surgical treatment. No chest pain or shortness of breath. Risk benefits alternatives of treatment discussed with patient in detail using shared informed decision making they wish to proceed. Allergies: Allergies Allergen Reactions Sulfa (Sulfonamide Antibiotics) Other Adhesive Tape-Silicones Rash PMHx: Past Medical History: Diagnosis Date Arthritis Asthma Depression Hypertension Joint pain Peripheral edema bilateral lower legs - followed with PCP PONV (postoperative nausea and vomiting) Seasonal allergies Sleep apnea uses cpap Urinary tract infection no current issues Use of cane as ambulatory aid Wears glasses PSHx: Past Surgical History: Procedure Laterality Date BREAST BIOPSY CATARACT EXTRACTION CHOLECYSTECTOMY COLONOSCOPY CYSTOSCOPY DERMOID CYST EXCISION EYE SURGERY OOPHORECTOMY TUBAL LIGATION Social Hx: Social History Socioeconomic History Marital status: Tobacco Use Smoking status: Never Smokeless tobacco: Never Vaping Use Vaping status: Never Used Substance and Sexual Activity Alcohol use: Never Drug use: Never Sexual activity: Defer control/protection: Post-menopausal Family Hx: No family history on file. Review of Systems: Review of Systems Constitutional: Negative. HENT: Negative. Eyes: Negative. Respiratory: Negative. Cardiovascular: Negative. Gastrointestinal: Negative. Endocrine: Negative. Genitourinary: Negative. Neurological: Negative. Hematological: Negative. Psychiatric/Behavioral: Negative. Physical Examination: Visit Vitals BP 133/67 Pulse 68 Temp 36.2 C (97.2 F) (Temporal) Resp 16 Physical Exam Constitutional: Appearance: Normal appearance. HENT: Head: Normocephalic. Nose: Nose normal. Mouth/Throat: Pharynx: Oropharynx is clear. Eyes: Pupils: Pupils are equal, round, and reactive to light. Cardiovascular: Rate and Rhythm: Normal rate. Pulses: Normal pulses. Pulmonary: Effort: Pulmonary effort is normal. Abdominal: General: Bowel sounds are normal. Palpations: Abdomen is soft. Musculoskeletal: Cervical back: Normal range of motion and neck supple. Skin: General: Skin is warm and dry. Capillary Refill: Capillary refill takes less than 2 seconds. Neurological: General: No focal deficit present. Mental Status: She is alert. Psychiatric: Mood and Affect: Mood normal. LABS: CBC: No results found for: WBC , RBC , HGB , HCT , MCV , MCH , MCHC , RDW , PLT , MPV CBC with Differential: No results found for: WBC , RBC , HGB , HCT , PLT , MCV , MCH , MCHC , RDW , NRBC , SEGSPCT , BANDSPCT , BLASTSPCT , METASPCT , LYMPHOPCT , PROMYELOPCT , MONOPCT , MYELOPCT , EOSPCT , BASOPCT , MONOSABS , LYMPHSABS , EOSABS , BASOSABS , DIFFTYPE CMP: No results found for: NA , K , CL , CO2 , BUN , CREATININE , AGRATIO , GLUCOSE , GLU , PROT , CALCIUM , BILITOT , ALKPHOS , AST , ALT BMP: No results found for: NA , K , CL , CO2 , BUN , CREATININE , CALCIUM , GLUCOSE , GLU Lipid Panel: No results found for: HDL , CHHDL , VLDL , TRIG , NHDL Current Medications: Current Facility-Administered Medications: ceFAZolin (Ancef) 2 g in dextrose (iso) IV 100 mL, 2 g, intravenous, Once, Jose Landers PA-C dexAMETHasone (PF) (Decadron) 5 mg, ropivacaine (Naropin) 5 mg/mL (0.5 %) 100 mg injection, , injection, Once, Howard Duncan MD lactated Ringer's infusion, 50 mL/hr, intravenous, Continuous, Howard Duncan MD No results found. No results found for this or any previous visit from the past 1095 days. Assessment: 83-year-old female with severe left knee arthritis Plan: All questions and concerns answered regarding surgical treatment. Will proceed with surgery today The risks of surgery were discussed including but not limited to the risks of medications given for surgery, the risk of blood loss during and after surgery that can lead to the need for blood products in certain situations, infection, damage to normal structures that can lead to filler leaf cutter long problems of pain or dysfunction, wound healing complications, the possibility of nonunion/malunion of any osteotomies and late or chronic pain as a result of the surgical intervention. In addition potentially life threatening complications that can occur at the time of surgery and after surgery were discussed including but not limited to deep vein thrombosis, pulmonary embolism, myocardial infarction, stroke and . [facility] Work Phone: 04-11-2024 History and physical note Orthopedics History and Physical Patient: Shanti Zuniga Unit/Bed: [facility] Date of : 1940 Acct: [id number] Admitting Diagnosis: Unilateral primary osteoarthritis, left knee [M17.12] Date: 04/11/2024 Hospital Day: 0 Attending: Mally Posada MD Complaint: No chief complaint on file. History of Present Illness: 83-year-old female presents today for left total knee arthroplasty. She is obtain medical clearance prior primary care physician at [facility]. Patient is medically optimized for surgical treatment. No chest pain or shortness of breath. Risk benefits alternatives of treatment discussed with patient in detail using shared informed decision making they wish to proceed. Allergies: Allergies Allergen Reactions Sulfa (Sulfonamide Antibiotics) Other Adhesive Tape-Silicones Rash PMHx: Past Medical History: Diagnosis Date Arthritis Asthma Depression Hypertension Joint pain Peripheral edema bilateral lower legs - followed with PCP PONV (postoperative nausea and vomiting) Seasonal allergies Sleep apnea uses cpap Urinary tract infection no current issues Use of cane as ambulatory aid Wears glasses PSHx: Past Surgical History: Procedure Laterality Date BREAST BIOPSY CATARACT EXTRACTION CHOLECYSTECTOMY COLONOSCOPY CYSTOSCOPY DERMOID CYST EXCISION EYE SURGERY OOPHORECTOMY TUBAL LIGATION Social Hx: Social History Socioeconomic History Marital status: Tobacco Use Smoking status: Never Smokeless tobacco: Never Vaping Use Vaping status: Never Used Substance and Sexual Activity Alcohol use: Never Drug use: Never Sexual activity: Defer control/protection: Post-menopausal Family Hx: No family history on file. Review of Systems: Review of Systems Constitutional: Negative. HENT: Negative. Eyes: Negative. Respiratory: Negative. Cardiovascular: Negative. Gastrointestinal: Negative. Endocrine: Negative. Genitourinary: Negative. Neurological: Negative. Hematological: Negative. Psychiatric/Behavioral: Negative. Physical Examination: Visit Vitals BP 133/67 Pulse 68 Temp 36.2 C (97.2 F) (Temporal) Resp 16 Physical Exam Constitutional: Appearance: Normal appearance. HENT: Head: Normocephalic. Nose: Nose normal. Mouth/Throat: Pharynx: Oropharynx is clear. Eyes: Pupils: Pupils are equal, round, and reactive to light. Cardiovascular: Rate and Rhythm: Normal rate. Pulses: Normal pulses. Pulmonary: Effort: Pulmonary effort is normal. Abdominal: General: Bowel sounds are normal. Palpations: Abdomen is soft. Musculoskeletal: Cervical back: Normal range of motion and neck supple. Skin: General: Skin is warm and dry. Capillary Refill: Capillary refill takes less than 2 seconds. Neurological: General: No focal deficit present. Mental Status: She is alert. Psychiatric: Mood and Affect: Mood normal. LABS: CBC: No results found for: WBC , RBC , HGB , HCT , MCV , MCH , MCHC , RDW , PLT , MPV CBC with Differential: No results found for: WBC , RBC , HGB , HCT , PLT , MCV , MCH , MCHC , RDW , NRBC , SEGSPCT , BANDSPCT , BLASTSPCT , METASPCT , LYMPHOPCT , PROMYELOPCT , MONOPCT , MYELOPCT , EOSPCT , BASOPCT , MONOSABS , LYMPHSABS , EOSABS , BASOSABS , DIFFTYPE CMP: No results found for: NA , K , CL , CO2 , BUN , CREATININE , AGRATIO , GLUCOSE , GLU , PROT , CALCIUM , BILITOT , ALKPHOS , AST , ALT BMP: No results found for: NA , K , CL , CO2 , BUN , CREATININE , CALCIUM , GLUCOSE , GLU Lipid Panel: No results found for: HDL , CHHDL , VLDL , TRIG , NHDL Current Medications: Current Facility-Administered Medications: ceFAZolin (Ancef) 2 g in dextrose (iso) IV 100 mL, 2 g, intravenous, Once, Jose Landers PA-C dexAMETHasone (PF) (Decadron) 5 mg, ropivacaine (Naropin) 5 mg/mL (0.5 %) 100 mg injection, , injection, Once, Howard Duncan MD lactated Ringer's infusion, 50 mL/hr, intravenous, Continuous, Howard Duncan MD No results found. No results found for this or any previous visit from the past 1095 days. Assessment: 83-year-old female with severe left knee arthritis Plan: All questions and concerns answered regarding surgical treatment. Will proceed with surgery today The risks of surgery were discussed including but not limited to the risks of medications given for surgery, the risk of blood loss during and after surgery that can lead to the need for blood products in certain situations, infection, damage to normal structures that can lead to filler leaf cutter long problems of pain or dysfunction, wound healing complications, the possibility of nonunion/malunion of any osteotomies and late or chronic pain as a result of the surgical intervention. In addition potentially life threatening complications that can occur at the time of surgery and after surgery were discussed including but not limited to deep vein thrombosis, pulmonary embolism, myocardial infarction, stroke and . documented in this encounter [facility] Work Phone: 04-07-2024 History of Present illness Narrative This patient has pain in the knee that is worsening. The pain increases with activity and with weightbearing, and interferes with daily activities. There is pain with range of motion, limited range of motion, crepitus and swelling. The x-ray demonstrates joint space narrowing, osteophyte formation, and subchondral sclerosis. The symptoms have worsened in spite of extensive medical treatment, therapy, and external support over at least the past 3 months. This is the preop visit to discuss the risks and benefits of the total knee replacement surgery. These risks were fully explained to the patient. With this, and any surgery, infection is a risk, this is usually 1 to 2%, even higher in diabetics, persons with rheumatoid arthritis, previous surgeries, on oral steroid medications, and obesity. All of these issues were properly addressed. We always assure all sterile techniques will be followed. Patient will also need to be on antibiotics for the next 2 years for any minor surgery, even dental work. For high risk patients, this will be for lifetime. Severe infections may require removal of the prosthesis. It was also explained to the patient that there will be some minor blood loss during the procedure and a blood transfusion may be recommended if medically necessary. It is also noted that with knee surgery a tourniquet is applied to the lower extremity to limit blood loss during the procedure. Pulmonary embolism and blood clots are also discussed with the patient. We discussed that these can be fatal complications to the surgery. It is explained to the patient that the use of thromboembolic stockings, foot pumps, incentive spirometer's, early mobility, and the use of blood thinners for period of time is the standard of care for prevention of blood clots. Patient's preoperative range of motion is 0-125 degrees. It is explained to the patient that this type of surgery is to decrease arthritis pain and sometimes stiffness may occur. It is important that the patient go to physical therapy postoperatively. It is also stated that occasionally we will have to manipulate the knee if pain and stiffness persists. Loosening and wear of the prosthesis are also discussed. The prosthesis normally last between 12 and 15 years. Revisions may be more complicated and with higher risk. Fractures, though rare, may also occur intraoperatively. These fractures may be to the tibia or to the femur. There may be nerve or arterial injuries as well and these are discussed in detail. Lastly, the benefits of spinal anesthesia were explained to the patient. All of the patient's questions and concerns were answered. This note was prepared using voice recognition software. The details of this note are correct and have been reviewed, and corrected to the best of my ability. Some grammatical areas may persist related to the [employer] software DVT ppx: Patient does report that following prior total knee arthroplasty she was placed on Lovenox but states she believes this was just surgeon preference. Denies any history of DVTs, cancer, blood disorders, smoking. Plan will be to begin aspirin twice daily postoperatively Last images obtained: CT 04/04/2024, x-ray 03/17/2024 Jose Landers PA-C documented in this encounter [facility] Work Phone: 03-17-2024 History of Present illness Narrative Chief Complaint Patient presents with Left Knee - Pain Xrays today History of Present Illness Patient presents with left knee pain for several years. The patient localizes the pain diffusely. Recently there has been concern for falls and instability. There is increasing difficulty with activities of daily living and significant disability related to the knee pain. The patient endorses the following failed non-operative treatments: Activity modifications anti-inflammatories cortisone injections braces with little to no relief. There is increasing frustration with persistent pain and swelling and decreasing distance of ambulation. Pain is moderate, achy, diffuse. Better with rest, worse with activity. Currently being treated in [place] by her orthopedic surgeon presents today in hoping of proceeding with total knee arthroplasty Review of Systems GENERAL: Negative for malaise, significant weight loss, fever MUSCULOSKELETAL: see HPI NEURO: Negative Exam Left knee: Skin healthy and intact No gross swelling or ecchymosis Alignment: Valgus effusion: Mild ROM: 10-1 10 Crepitance with range of motion No pain with internal rotation of the hip Tenderness to palpation over medial and lateral joint line and with patellar compression No laxity to valgus stress No laxity to varus stress Negative Josué s test Negative posterior drawer test Mild pain with Elia s test Neurovascular exam normal distally 2+ DP pulse and good cap refill Radiographs X-rays collected in clinic today: There is osteophytosis sclerosis, is joint space narrowing consistent with severe valgus wear pattern tricompartmental knee arthritis Procedures Assessment Patient with severe valgus knee left knee osteoarthritis Plan We discussed with the patient the diagnosis of degenerative joint disease of the knee. We reviewed an evidence-based approach to osteoarthritis of the knee. We strongly encouraged low-impact aerobic activity and non-opioid analgesics. We discussed temporary pain relief with corticosteroid injections and the associated risks. We also discussed the conflicting evidence regarding viscosupplementation and potential long-term risks with NSAID s. We reviewed the role of bracing for instability and physical therapy for atrophy and gait abnormalities. The patient elected for total knee arthroplasty History and physical exam as well as imaging findings discussed with patient in detail. Patient has longstanding knee pain that has failed to improve with conservative treatment to include injections, activity modifications and anti-inflammatories. Risk benefits and alternatives of treatment were discussed with the patient in detail. Using shared informed decision making patient wishes to proceed with surgical intervention to include left total knee arthroplasty with Rafael assist. Risks of the surgery which include but are not limited to infection, need for revision surgery, neurovascular compromise, instability, infection, periprosthetic fracture, continued pain and stiffness were discussed with this patient in detail. They do wish to proceed. We will obtain medical clearance prior to proceeding. We will also obtain a CT scan for preoperative planning. Patient will return to clinic after these are completed for presurgical visit and further discussion of details regarding surgery and day of surgery. The risks of surgery were discussed including but not limited to the risks of medications given for surgery, the risk of blood loss during and after surgery that can lead to the need for blood products in certain situations, infection, damage to normal structures that can lead to filler leaf cutter long problems of pain or dysfunction, wound healing complications, the possibility of nonunion/malunion of any osteotomies and late or chronic pain as a result of the surgical intervention. In addition potentially life threatening complications that can occur at the time of surgery and after surgery were discussed including but not limited to deep vein thrombosis, pulmonary embolism, myocardial infarction, stroke and . . documented in this encounter [facility] Work Phone: 02-17-2024 Evaluation note Diagnosis Onset Date Resolution Chronic pain acute February 7:56am Left knee pain acute February 17, 2024 7:56am Primary osteoarthritis of left knee acute February 17, 2024 7:56am Chronic venous insufficiency of lower extremity acute March 20 11:29am Essential hypertension acute Oc tober 2023 11:29am IFG (impaired fasting glucose) acute March 20 11:29am Mild intermittent asthma without complication acute March 11:29am Obstructive sleep apnea acute O ctober 2023 11:29am Preop exam for internal medicine acute March 20 11:29am Abnormal EKG acute March 9:23am Chronic venous insufficiency of lower extremity acute April 05, 2024 9:23am Essential hypertension acute Oc tober 2023 9:23am IFG (impaired fasting glucose) acute April 05, 2024 9:23am Mild intermittent asthma without complication acute March 9:23am Obstructive sleep apnea acute O ctober 2023 9:23am Preop exam for internal medicine acute April 05, 2024 9:23am Anxiety, generalized acute Apre mber 2023 9:48am Chronic venous insufficiency of lower extremity acute May 02, 2024 9:48am Essential hypertension acute No vember 2023 9:48am Gastroesophageal reflux disease with esophagitis without hemorrhage acute April 9:48am Hypercholesterolemia acute 2023 9:48am IFG (impaired fasting glucose) acute May 02, 2024 9:48am Mild intermittent asthma without complication acute May 022023 9:48am Obstructive sleep apnea acute N ovember 2023 9:48am [facility] Work Phone: 1(133) 606-101608-20-2024 [facility] [facility]07[facility] [facility]10-24-2023 Evaluation note* Encounter Date Diagnosis Assessment Notes Treatment Notes Treatment Clinical Notes Mar, Chronic venous insufficiency (ICD-10 - I87.2) Avoid salt and elevate lower extremities, support stockings, inspect legs and feet daily for blisters and ulcerations. Mar, Essential hypertension (ICD-10 - I10) This patient is instructed to consume a healthy, low-fat, low-salt diet. They are also encouraged to continue exercise to achieve/maintain a normal BMI. Mar, Mild intermittent asthma [...] 3-5 times weekly. Mar, Body mass index [BMI ] 31.0-31.9, adult (ICD-10 - Z68.31) [facility] Other 05-10-2023 Evaluation note* Encounter Date Diagnosis Assessment Notes Treatment Notes Treatment Clinical Notes October, CHILANGO (obstructive sleep apnea) (ICD-10 - G47.33) AHI 7 w/ hypoxemia < 80% [facility] Other 04-17-2023 Evaluation note* Encounter Date Diagnosis [...] of SUSIE as needed for cough, wheezing [facility] Other 03-30-2023 Evaluation note* Encounter Date Diagnosis [...] J45.20) Monitor for exacerbation, SUSIE as needed. [facility] Other Evaluation note* Diagnosis Onset Date Resolution Status Anxiety, generalized acute Essential hypertension acute Gastroesophageal reflux dise ase with esophagitis without hemorrhage acute Hypercholesterolemia acute Left flank pain acute Mild intermittent asthma without complication acute Obstructive sleep apnea acut e Medicare annual wellness visit, subsequent noneactive [facility] Work Phone: Evaluation note* Diagnosis Onset Date Resolution Status Anxiety, generalized acute Essential hypertension acute Gastroesophageal reflux dise ase with esophagitis without hemorrhage acute Hypercholesterolemia acute Left flank pain acute Mild intermittent asthma without complication acute Obstructive sleep apnea acut e Medicare annual wellness visit, subsequent noneactive Chronic pain acute Left knee pain acute Primary osteoarthritis of left knee acute [facility] Work Phone: Evaluation note* Diagnosis Onset [...] acute Primary osteoarthritis of left knee acute [facility] Work Phone: Evaluation note* Diagnosis Onset Date Resolution Status Chronic pain acute Left knee pain acute Primary osteoarthritis of left knee acute Chronic pain acute Left knee pain acute Primary osteoarthritis of left knee acute Chronic pain acute Left knee pain acute Primary osteoarthritis of left knee acute [facility] Work Phone: Evaluation note* Diagnosis Onset Date Resolution Status Chronic pain acute Left knee pain acute Primary osteoarthritis of left knee acute Chronic pain acute Left knee pain acute Primary osteoarthritis of left knee acute Chronic pain acute Left knee pain acute Primary osteoarthritis of left knee acute Chronic pain acute Left knee pain acute Primary osteoarthritis of left knee acute [facility] Work Phone: Evaluation note* Diagnosis Acute pain of left knee documented in this encounter [facility] Work Phone: Evaluation note* Diagnosis Acute pain of left knee documented in this encounter [facility] Work Phone: Evaluation note* Diagnosis Onset Date Resolution Status Chronic pain acute Left knee pain acute Primary osteoarthritis of left knee acute Chronic pain acute Left knee pain acute Primary osteoarthritis of left knee acute Chronic pain acute Left knee pain acute Primary osteoarthritis of left knee acute Essential hypertension acute Gastroesophageal reflux dise ase with esophagitis without hemorrhage acute IFG (impaired fasting glucose) acute Mild intermittent asthma without complication acute Obstructive sleep apnea acut e Preop exam for internal medicine [facility] Work Phone: Evaluation note* Diagnosis Unilateral primary osteoarthritis, left knee- Primary Pre-op examination Unilateral primary osteoarthritis, left knee- Primary Unilateral primary osteoarthritis, left knee documented in this encounter [facility] Work Phone: Evaluation note* Diagnosis Unilateral primary osteoarthritis, left knee- Primary Acute pain of left knee Unilateral primary osteoarthritis, left knee- Primary Unilateral primary osteoarthritis, left knee documented in this encounter [facility] Work Phone: Evaluation note* Diagnosis Onset Date Resolution Status Chronic pain acute Left knee pain acute Primary osteoarthritis of left knee acute Chronic pain acute Left knee pain acute Primary osteoarthritis of left knee acute Chronic venous insufficiency of lower extremity acute Essential hypertension acute IFG (impaired fasting glucose) acute Mild intermittent asthma without complication acute Obstructive sleep apnea acut e Preop exam for internal medicine [facility] Work Phone: Evaluation note* Diagnosis Unilateral primary osteoarthritis, left knee- Primary Arthritis of left knee- Primary Unilateral primary osteoarthritis, left knee- Primary Unilateral primary osteoarthritis, left knee documented in this encounter [facility] Work Phone: Evaluation note* Diagnosis Unilateral primary osteoarthritis, left knee- Primary Unilateral primary osteoarthritis, left knee S/P total knee arthroplasty, left HTN (hypertension) Unspecified essential hypertension Class 1 obesity in adult CHILANGO (obstructive sleep apnea) Obstructive sleep apnea (adult) (pediatric) Anxiety Anxiety state, unspecified Gastroesophageal reflux disease Esophageal reflux Asthma Unspecified asthma S/P total knee arthroplasty, left documented in this encounter [facility] Work Phone: Evaluation note* Diagnosis S/P total knee arthroplasty, left- Primary Arthritis of left knee documented in this encounter [facility] Work Phone: Evaluation note* Diagnosis Arthritis of left knee documented in this encounter [facility] Work Phone: History general Narrative - [...] BREAST BIOPSY Hospitalization History SEE SURGICAL HX [facility] Other History general Narrative - Reported* Type [...] BREAST BIOPSY Hospitalization History SEE SURGICAL HX [facility] Other Reason for visit Narrative* Cardiovascular (Routine) - Authorized Specialty Diagnoses / Procedures Referred By Henny ching Referred To Contact Diagnoses Pre-op examination Procedures ECG 12 Lead Mally Posada MD [address] [address] Phone: tel: fax: Referral ID Status Reason Start Date Expiration Date V isits Requested Visits Authorized [id number] Authorized 03/23/2024 03/23/2025 1 1 [facility] Work Phone: Reason for visit Narrative* Imaging (Routine) - Authorized Specialty Diagnoses / Procedures Referred By Henny ching Referred To Contact Radiology Diagnoses Acute pain of left knee Procedures CT knee left wo IV contrast Mally Posada MD [address] [facility], [address] [place] [address] Phone: tel: fax: Referral ID Status Reason Start Date Expiration Date Visits Requested Visits Authorized [id number] Authorized Perform Procedure 03/21/2024 03/21/2025 1 1 [facility] Work Phone: Reason for visit Narrative* Auth/Cert Specialty Diagnoses / Procedures Referred By Henny ching Referred To Contact Diagnoses Unilateral primary osteoarthritis, left knee Unilateral primary osteoarthritis, left knee [M17.12] Procedures NH ARTHRP KNE CONDYLE&PLATU MEDIAL&LAT COMPARTMENTS Arthroplasty Total Knee Robot-Assisted Mally Posada MD [address] [facility], [address] [place] [id number] Phone: tel: fax: [facility] [place] [address] [place] [phone] fax: Referral ID Status Reason Start Date Expiration Date Visits Re quested Visits Authorized [id number] 1 1 [facility] Work Phone: Reason for visit Narrative* Imaging (Routine) - Authorized Specialty Diagnoses / Procedures Referred By Henny ching Referred To Contact Radiology Diagnoses Arthritis of left knee Procedures XR knee left 3 views Mally Posada MD [address] [facility], [address] [place] [address] Phone: tel: fax: Referral ID Status Reason Start Date Expiration Date Visits Requested Visits Authorized [id number] Authorized Perform Procedure 4 04/28/2025 1 1 [facility] Work Phone: Summary Purpose Family History Relationship Condition Age [...] Advance Directives No July 12, 2023 1:01pm Date Activated Date Inactivated Comments 04/11/2024 5:41 AM Question Answer Comments Plan of Care: Code Status Discussion Completed Decision Maker: Patient Advance Directive Response Recorded Date/ Time Advance Directives No July 12, 2023 12:01pm Chief Complaint and Reason for Visit Chief [...] Primary osteoarthritis of left knee Chief Complaint Knee Pain Knee Pain F/U LT GENICULAR NB 1ST Knee Pain Knee Pain F/U AFTER 2ND LEFT GENICULAR NERVE BLOCK Knee Pain Knee Pain F/U LEFT GENICULAR RFA leg swelling/pre surgical clearance Reason for Visit Chronic pain Left knee pain Primary osteoarthritis of left knee Chronic pain Left knee pain Primary osteoarthritis of left knee Chronic pain Left knee pain Primary osteoarthritis of left knee Essential hypertension Gastroesophageal reflux disease with esophagitis without hemorrhage IFG (impaired fasting glucose) Mild intermittent asthma without complication Obstructive sleep apnea Preop exam for internal medicine Chief Complaint F/U AFTER 2ND LEFT G ENICULAR NERVE BLOCK Knee Pain Knee Pain F/U LEFT GENICULAR RFA leg swelling/pre surgical clearance Pre-Surgical Clearance Reason for Visit Chronic pain Left knee pain Primary osteoarthritis of left knee Chronic pain Left knee pain Primary osteoarthritis of left knee Chronic venous insufficiency of lower extremity Essential hypertension IFG (impaired fasting glucose) Mild intermittent asthma without complication Obstructive sleep apnea Preop exam for internal medicine Chief Complaint Admit Date F/U LEFT GENICULAR RFA February 16 7:56am leg swelling/pre surgical clearance Octo 2023 11:29am Pre-Surgical Clearance April 05 9:23am 6 month f/u May 02, 2024 9:48am Reason for Visit Admit Date Chronic pain February 17, 2024 7:56am Left knee pain February 17, 2024 7:56am Primary osteoarthritis of left knee Sept emb2023 7:56am Chronic venous insufficiency of lower ex tremity March 20, 2024 11:29am Essential hypertension March 20, 2024 11:29am IFG (impaired fasting glucose) March 202023 11:29am Mild intermittent asthma without complic ation March 20, 2024 11:29am Obstructive sleep apnea March 20 11:29am Preop exam for internal medicine March 20, 2024 11:29am Abnormal EKG April 05, 2024 9 :23am Chronic venous insufficiency of lower ex tremity April 05, 2024 9:23am Essential hypertension April 05 9:23am IFG (impaired fasting glucose) March 152023 9:23am Mild intermittent asthma without complic ation April 05, 2024 9:23am Obstructive sleep apnea April 05 9:23am Preop exam for internal medicine April 05, 2024 9:23am Anxiety, generalized May 02, 2024 9:48am Chronic venous insufficiency of lower ex tremity May 02, 2024 9:48am Essential hypertension May 02 9:48am Gastroesophageal reflux dise ase with esophagitis without hemorrhage May 02, 2024 9:48am Hypercholesterolemia May 02, 2024 9:48am IFG (impaired fasting glucose) May 02, 2024 9:48am Mild intermittent asthma without complic ation May 02, 2024 9:48am Obstructive sleep apnea May 02, 024 9:48am Reason for Referral Specialty Diagnoses / Procedures Referred By Contac t Referred To Contact Radiology Diagnoses Acute pain of left knee Procedures XR knee left 4+ views Mally Posada MD [address] [facility], [address] [place], [place] [id number] Referral ID Status Reason Start Date Expiration Date Visits Requested Visits Authorized [id number] Authorized Perform Procedure 03/17/2024 03/17/2025 1 1 Additional Source Comments REASON FOR VISIT (unrecogniz ed section and content) Reason Comments Pain Xrays today Specialty Diagnoses / Procedures Referred By Contac t Referred To Contact Radiology Diagnoses Acute pain of left knee Procedures XR knee left 4+ views Mally Posada MD [address] [facility], [address] [place] [address] Referral ID Status Reason Start Date Expiration Date Visits Requested Visits Authorized [id number] Authorized Perform Procedure 03/17/2024 03/17/2025 1 1 Reason Comments Pre-op Visit Total knee surgery 1 Reason Comments Post-op Total knee arthropla sty left with robot assistance Rafael INFORMATION SOURCE (unrecogn ized section and content) DATE CREATED AUTHOR 10/22/2022 [facility] DATE CREATED AUTHOR AUTHOR'S ORGANIZ ATION 10/20/2023 [facility] EPIC DATE CREATED AUTHOR AUTHOR'S ORGANIZ ATION 02/15/2024 [facility] DATE CREATED AUTHOR AUTHOR'S ORGANIZ ATION 04/10/2024 [facility] DATE CREATED AUTHOR AUTHOR'S ORGANIZ ATION 04/30/2024 [facility] DATE CREATED AUTHOR AUTHOR'S ORGANIZ ATION 05/02/2024 [facility] Care Teams (unrecognized sec tion and [...] February 17, 2024 End: February 17, 2024 Cork Compounder Relationship Specialty Start Date End Date Ba Billingsley DO [address] [address] PCP - General Internal Medicine 03/17/24 Cork Compounder Relationship Specialty Start Date End Date Ba Billingsley DO [address] [place] [address] PCP - General Internal Medicine 03/17/24 Team Status: Inactive Member Role Status Dates Ba Billingsley DO Primary Care Provide r, Attending Provider Active Start: March 20, 2024 End: March 20, 2024 Cork Compounder Relationship Specialty Start Date End Date Ba Billingsley DO [address] [place] [address] PCP - General Internal Medicine 03/17/24 Cork Compounder Relationship Specialty Start Date End Date Ba Billingsley DO [address] [place] [address] PCP - General Internal Medicine 03/17/24 Team Status: Inactive Member Role Status Dates Ba Billingsley DO Primary Care Provide r, Attending Provider Active Start: April 05, 2024 End: April 05, 2024 Cork Compounder Relationship Specialty Start Date End Date Ba Billingsley DO [address] [place] [address] PCP - General Internal Medicine 03/17/24 Cork Compounder Relationship Specialty Start Date End Date Ba Billingsley DO [address] [place] [address] PCP - General Internal Medicine 03/17/24 Cork Compounder Relationship Specialty Start Date End Date Ba Billingsley DO [address] [place] [address] PCP - General Internal Medicine 03/17/24 Cork Compounder Relationship Specialty Start Date End Date Ba Billingsley DO [address] [place] [address] PCP - General Internal Medicine 03/17/24 Team Status: Inactive Member Role Status Dates Ba Billingsley DO Primary Care Provide r, Attending Provider Active Start: May 02, 2024 End: May 02, 2024 Goals (unrecognized section and content) Goals may be documented in a n alternate section Scheduled Active and Recently Administ ered Medications (unrecognized section and content) Medication Order 04/10/2024 04/11/2024 04/12/2024 acetaminophen (Tylenol) tablet 650 mg 650 mg, oral, Every 6 hours scheduled, First dose on Wed04/11/24 at 1200, Phase II/On Unit, If ordered PRN for pain, nurse is permitted to administer this medication for higher pain scores based on patient preference? Yes 1324 (Given - Provider: Tonya Davila RN)1753 (Given - Provider: Tonya Davila RN)2352 (Given - Provider: Lilia Bean, TRAVIS) 0606 (Given - Provider: Lilia Bean, TRAVIS)1200 (Due)1800 (Due) acetaminophen (Tylenol) tablet 975 mg (COMPLETED) 975 mg, oral, Once, On Wed04/11/24 at 0600, For 1 dose, Preprocedure, If ordered PRN for pain, nurse is permitted to administer this medication for higher pain scores based on patient preference? Yes 0653 (Given - Provider: Rhiannon Ely RN) aspirin EC tablet 81 mg 81 mg, oral, 2 times daily, First dose on Wed04/11/24 at 1145, Phase II/On Unit, Do not crush, chew, or split. 1324 (Given - Provider: Tonya Davila RN)2108 (Given - Provider: Lilia Bean, TRAVIS) 0943 (Given - Provider: Kait Burdick, TRAVIS)2100 (Due) ceFAZolin (Ancef) 2 g in dextrose (iso) IV 100 mL (COMPLETED) 2 g, intravenous, Administer over 30 Minutes, Once, On Wed04/11/24 at 0600, For 1 dose, Intraprocedure, Administer within 60 minutes prior to incision. premix bag, Dosing of this medication varies based on severity of illness. Does this patient have sepsis or concern for sepsis (probable or documented infection plus systemic manifestations of infection)? No, Suspected Indication (Select all that apply): Surgical Prophylaxis, Indications: Surgical Prophylaxis 0754 (Given - Provider: Charla Head APRN-TUBE HEATER) ceFAZolin (Ancef) 2 g in dextrose (iso) IV 100 mL (COMPLETED) 2 g, intravenous, Administer over 30 Minutes, Every 8 hours, First dose on Wed04/11/24 at 1600, For 2 doses, Phase II/On Unit, Start 8 hours after pre-op dose given. premix bag, Dosing of this medication varies based on severity of illness. Does this patient have sepsis or concern for sepsis (probable or documented infection plus systemic manifestations of infection)? No, Suspected Indication (Select all that apply): Surgical Prophylaxis, Indications: Surgical Prophylaxis 1636 (New Bag - Provider: Tonya Davila RN)1738 (Stopped - Provider: Tonya Davila RN)2352 (New Bag - Provider: Lilia Bean, TRAVIS) 0022 (Stopped - Provider: Lilia Bean RN) celecoxib (CeleBREX) capsule 400 mg (COMPLETED) 400 mg, oral, Once, On Wed04/11/24 at 0600, For 1 dose, Preprocedure, Capsules may be opened and sprinkled on a spoonful of cold or room temperature applesauce. 0653 (Given - Provider: Rhiannon Ely RN) chlorhexidine (Peridex) 0.12 % solution 15 mL 15 mL, Mouth/Throat, Daily, First dose on Wed04/12/24 at 0900, Do NOT swallow; Avoid eating for 2 to 3 hours after treatment. 0944 (Not Given - Provider: Kait Burdick RN - Reason: Patient/family refused) dexAMETHasone (PF) (Decadron) 5 mg, ropivacaine (Naropin) 5 mg/mL (0.5 %) 100 mg injection (COMPLETED) injection, Once, On Wed04/11/24 at 0600, For 1 dose, Intraprocedure 0737 (Given - Provider: Gavi Valencia RN) fluticasone (Flonase) nasal spray 1 spray 1 spray, Each Nostril, Nightly, First dose on Wed04/11/24 at 2100, Shake gently. Before first use, prime pump (press 6 times until fine spray appears). After use, clean tip and replace cap. 2107 (Given - Provider: Lilia Bean, TRAVIS) 2100 (Due) furosemide (Lasix) tablet 20 mg 20 mg, oral, Daily, First dose on Wed04/11/24 at 1200, Indications: edema, On hold since Wed04/11/2024 at 1142 until manually unheld 1142 (Held by provider - Provider: JONNY Tracey - Reason: Post-procedure)1200 (Dose Auto Held) 0900 (Not Given - Provider: Kait Burdick RN - Reason: See Provider Order) gabapentin (Neurontin) capsule 600 mg (COMPLETED) 600 mg, oral, Once, On Wed04/11/24 at 0600, For 1 dose, Preprocedure, Capsules may be opened and sprinkled on food (eg, applesauce, orange juice, pudding 0653 (Given - Provider: Rhiannon Ely RN) lisinopril tablet 20 mg 20 mg, oral, Daily, First dose on Wed04/11/24 at 1200, On hold since Wed04/11/2024 at 1142 until manually unheld 1142 (Held by provider - Provider: JONNY Tracey - Reason: Post-procedure)1200 (Dose Auto Held) 0900 (Not Given - Provider: Kait Burdick RN - Reason: See Provider Order) polyethylene glycol (Glycolax, Miralax) packet 17 g 17 g, oral, Daily, First dose on Wed04/11/24 at 1145, Phase II/On Unit, Bowel Regimen - for prevention of constipation. 1307 (Not Given - Provider: Tonya Davila RN - Reason: Patient/family refused) 0943 (Given - Provider: Kait Burdick RN) povidone-iodine 5 % kit kit (COMPLETED) Topical, Once, On Wed04/11/24 at 0600, For 1 dose, Preprocedure, Apply povidone iodine 5% to surgical area and bilateral nares (unless allergic) in pre-op the morning of surgery. 0652 (Given - Provider: Rhiannon Ely RN) ropivacaine (Naropin) 5 mg/mL (0.5 %) injection 100 mg (COMPLETED) 100 mg (20 mL), injection, Once, On Wed04/11/24 at 0730, For 1 dose, Intraprocedure 0737 (Given - Provider: Gavi Valencia RN) tranexamic acid (Lysteda) tablet 1,950 mg (COMPLETED) 1,950 mg, oral, Once, On Wed04/11/24 at 0600, For 1 dose, Preprocedure, Do not crush, chew, or split. 0653 (Given - Provider: Rhiannon Ely RN) tranexamic acid (Lysteda) tablet 1,950 mg (COMPLETED) 1,950 mg, oral, Once, On Wed04/11/24 at 1145, For 1 dose, Recovery & On Unit, First dose administered 6 hours post procedure. Do not crush, chew, or split., Tranexamic Acid Indication: Surgical Prophylaxis: Orthopedic 1636 (Given - Provider: Tonya Davila RN) tranexamic acid (Lysteda) tablet 1,950 mg (COMPLETED) 1,950 mg, oral, Once, On Wed04/12/24 at 0600, For 1 dose, Phase II/On Unit, Second dose administered post-op day 1 at 0600. Do not crush, chew, or split., Tranexamic Acid Indication: Surgical Prophylaxis: Orthopedic 0605 (Given - Provid er: Lilia Bean RN) Continuous Medication Order 04/10/2024 04/11/2024 04/12/2024 lactated Ringer's infusion 50 mL/hr, intravenous, Continuous, Starting on Wed04/11/24 at 0730, For 1 day 0702 (New Bag - Provider: Ruby Herbert RN)0747 (Continued by Anesthesia - Provider: NELIDA Maldonado)0838 (Rate/Dose Change - Provider: NELIDA Maldonado)1001 (Paused - Provider: NELIDA Maldonado - Comment: Switch to gravity)1002 (Restarted - Provider: NELIDA Maldonado)1931 (Stopped - Provider: Lilia Bean RN - Comment: no infusion running) lactated Ringer's infusion 50 mL/hr, intravenous, Continuous, Starting on Wed04/11/24 at 1145, For 24 hours, Phase II/On Unit 1307 (Continued from OR - Provider: Tonya Davila RN) oxygen (O2) therapy 2 L/min, inhalation, Continuous, Starting on Wed04/11/24 at 1145, Phase II/On Unit, Titrate supplemental oxygen to maintain oxygen saturation greater than or equal to 92%., Device: Nasal Cannula, Rate in liters per minute: 2 LPM, Keep O2 Sat Above: 92% 1307 (Stopped - Provider: Tonya Davila RN) PRN Medication Order 04/10/2024 04/11/2024 04/12/2024 benzocaine-menthol (Cepastat Sore Throat) lozenge 1 lozenge 1 lozenge, Mouth/Throat, Every 4 hours PRN, sore throat, Starting on Wed04/11/24 at 1119, Phase II/On Unit bisacodyl (Dulcolax) EC tablet 10 mg 10 mg, oral, Daily PRN, constipation, first line, Starting on Wed04/11/24 at 1119, Phase II/On Unit, 1st line for treatment of constipation - contact provider if no bowel movement in past 48 hours. Do not crush, chew, or split. cyclobenzaprine (Flexeril) tablet 10 mg 10 mg, oral, 3 times daily PRN, muscle spasms, Starting on Wed04/11/24 at 1119, Phase II/On Unit, Indications: muscle spasm 2152 (Not Given - Provider: Lilia Bean RN - Reason: Patient/family refused) diphenhydrAMINE (BENADryl) liquid 12.5 mg 12.5 mg, oral, Every 6 hours PRN, itching, Starting on Wed04/11/24 at 1119, Phase II/On Unit HYDROmorphone (Dilaudid) injection 0.5 mg 0.5 mg, intravenous, Every 4 hours PRN, pain severe (7-10), second line, Starting on Wed04/11/24 at 1119, Phase II/On Unit morphine injection 2 mg 2 mg, intravenous, Every 2 hour PRN, pain breakthrough, Starting on Wed04/11/24 at 111, Phase II/On Unit naloxone (Narcan) injection 0.2 mg 0.2 mg, intravenous, Every 5 min PRN, respiratory depression, Starting on Wed04/11/24 at 1119, Phase II/On Unit, If respiratory rate is less than 8 breaths/minute or patient is difficult to arouse stop any narcotics and contact physician. Administer slow IV push. Repeat as ordered until patient's respiratory rate is greater than 12 breaths/minute. ondansetron (Zofran) injection 4 mg(Linked Group 1) 4 mg, intravenous, Every 8 hours PRN, nausea/vomiting, first line, Starting on Wed04/11/24 at 1119, Phase II/On Unit, 1st Line. Give IV if patient is unable to take orally. If inadequate response within 60 minutes, proceed to next-line agent for same PRN reason or contact provider if no further options ordered. When administering via IV Push, administer over 3-5 minutes. ondansetron ODT (Zofran-ODT) disintegrating tablet 4 mg(Linked Group 1) 4 mg, oral, Every 8 hours PRN, nausea/vomiting, first line, Starting on Wed04/11/24 at 1119, Phase II/On Unit, 1st Line. Patient should allow tablet to dissolve on tongue. Do not remove from blister pack until just before administering. If inadequate response within 60 minutes, proceed to next-line agent for same PRN reason or contact provider if no further options ordered. oxyCODONE (Roxicodone) immediate release tablet 10 mg 10 mg, oral, Every 6 hours PRN, pain moderate (4-6), first line, Starting on Wed04/11/24 at 1119, Phase II/On Unit, If ordered PRN for pain, nurse is permitted to administer this medication for higher pain scores based on patient preference? Yes oxyCODONE (Roxicodone) immediate release tablet 5 mg 5 mg, oral, Every 4 hours PRN, pain mild (1-3), first line, Starting on Wed04/11/24 at 1119, Phase II/On Unit, If ordered PRN for pain, nurse is permitted to administer this medication for higher pain scores based on patient preference? Yes 2321 (Given - Provider: Lilia Bean RN) 2310 (Given - Provider: Lilia Bean RN)1050 (Given - Provider: Kait Burdick RN) [id number]-pviijlflvfr-wspb idine-ketorolac 2.46-0.005- 0.0008-0.3mg/mL periarticular syringe (CANCELED) As needed, Starting on Wed04/11/24 at 0915, Intraprocedure 0915 (Given - Provider: Mally Posada MD) vancomycin (Vancocin) vial for injection (CANCELED) As needed, Starting on Wed04/11/24 at 0915, Intraprocedure 0915 (Given - Provider: Mally Posada MD) Linked Groups Order Group 1: ondansetron ODT (Zofran-ODT) disintegrating tablet 4 mgJump to med 4 mg, oral, Every 8 hours PRN, nausea/vomiting, first line, Starting on Wed04/11/24 at 1119, Phase II/On Unit, 1st Line. Patient should allow tablet to dissolve on tongue. Do not remove from blister pack until just before administering. If inadequate response within 60 minutes, proceed to next-line agent for same PRN reason or contact provider if no further options ordered. Or ondansetron (Zofran) injection 4 mgJump to med 4 mg, intravenous, Every 8 hours PRN, nausea/vomiting, first line, Starting on Wed04/11/24 at 1119, Phase II/On Unit, 1st Line. Give IV if patient is unable to take orally. If inadequate response within 60 minutes, proceed to next-line agent for same PRN reason or contact provider if no further options ordered. When administering via IV Push, administer over 3-5 minutes. FOR RECORDS PERTAINING TO PATIENTS WHO ARE [...] BE BASED ON THE PRIMARY CLINICAL RECORDS. [employer] provides no warranty or guarantee of the accuracy or completeness of information in this document.
--- NOTE | 2024-05-05 13:41 | XR_ITS ---
The [address] [address] Patient Name: SHANTI ZUNIGA MRN: [id number] date: 1940 Sex: F Assigned Patient Location: CARD Current Patient Location: Accession/Order Number: [id number] Exam Date: 05/05/2024 13:48 Report Date: 05/06/2024 07:47 At the request of: TIFFANY CLAYTON Procedure: XR chest 2V EXAMINATION: XR chest 2V HISTORY: Mild Intermittent Asthma, Pulmonary Hypertension, Sleep Apne , bilateral leg swelling COMPARISON: XR RIBS right with PA chest 02/17/2022 FINDINGS: LUNGS: Stable calcified granuloma within lateral left midlung. No acute infiltrates or evidence of pulmonary edema. VASCULATURE: No increased pulmonary vasculature. PLEURA: No pneumothorax, effusion, or pleural thickening. CARDIAC: No cardiomegaly or cardiac silhouette abnormality. MEDIASTINUM: No visible mass or adenopathy. BONES: No fracture or visible bone lesion. OTHER: Negative. XR/XR chest 2V IMPRESSION: 1. No acute cardiopulmonary process. Stable chest. Electronically authenticated by: MARGARITO MILLER Date: 05/06/2024 07:47
== END 2024-05-05 12:38 | disposition home or self-care (01) ==
LOC: CARD 12:37
PROVIDERS: PCP Internal Medicine; Visit Provider Internal Medicine
DX: G47.33 Obstructive sleep apnea (adult) (pediatric) (principal); I27.20 Pulmonary hypertension, unspecified; J45.20 Mild intermittent asthma, uncomplicated
CPT/HCPCS: 36415; 71046; 85018; 94010; 94726; 94729

== ENCOUNTER 2024-05-26 11:08 | Outpatient (RCR) | payer MEDICARE, OTHER, SELFPAY | END 2024-06-13 14:36 | disposition home or self-care (01) | LOC: OT 11:08 | PROVIDERS: PCP Internal Medicine; Visit Provider Internal Medicine | DX: I89.0 Lymphedema, not elsewhere classified (principal) | CPT/HCPCS: 97140; 97166; 97530 ==

== ENCOUNTER 2024-06-14 11:44 | Outpatient (RCR) | payer MEDICARE, OTHER, SELFPAY | END 2024-06-29 15:31 | disposition home or self-care (01) | LOC: OT 11:44 | PROVIDERS: PCP Internal Medicine; Visit Provider Internal Medicine | DX: I89.0 Lymphedema, not elsewhere classified (principal) | CPT/HCPCS: 97140; 97530 ==

== ENCOUNTER 2024-10-18 10:31 | Outpatient (OUT) | payer MEDICARE, OTHER, SELFPAY ==
--- NOTE | 2024-10-18 10:41 | MM_ITS ---
Patient Name: SHANTI ZUNIGA MR#: [id number] : 1940 Exam Date: 10/18/2024 Ordering Doctor: DR TIFFANY CLAYTON D.O. RADIOLOGY REPORT PROCEDURE: MM TOMOSYNTHESIS SCREENING BI COMPARISON: MM TOMOSYNTHESIS SCREENING BI, 10/18/2023. MG MAMM SCREEN 3D TU CAD, 10/14/2022. MG MAMM SCREEN 3D TU CAD, 09/24/2021. MG MAMM TU SCRN W CAD DIG, 02/14/2013. INDICATIONS: Screening Calculator Name NCI Breast Cancer Risk Assessment Tool 5 Year Breast Cancer Risk 3.60% Lifetime Breast Cancer Risk 5.20% Personal Breast Cancer No Personal Ovarian Cancer No Treatments None Family Cancers Sister with breast cancer at age 63; Father with lung cancer at age 71; Cousin-paternal with breast cancer at age 50. LOCATION: [facility] BREAST COMPOSITION: There are scattered areas of fibroglandular density. FINDINGS: DIAGNOSTIC CATEGORY 1--NEGATIVE. RIGHT BREAST: No significant suspicious finding. LEFT BREAST: No significant suspicious finding. RECOMMENDATIONS: ROUTINE MAMMOGRAM AND CLINICAL EVALUATION IN 12 MONTHS. PLEASE NOTE: A NORMAL MAMMOGRAM DOES NOT EXCLUDE THE POSSIBILITY OF BREAST CANCER. A CLINICALLY SUSPICIOUS PALPABLE LUMP SHOULD BE BIOPSIED. Dictated by: Johnathan Ovalles DO on 10/18/2024 at 16:13 Approved by: Johnathan Ovalles DO on 10/18/2024 at 16:14
[2024-10-18 10:43] LABS: Basophils Absolute Auto 0.1 10^3/uL (0.0-0.1); Basophils Percent Auto 0.8 % (0.2-2.0); Eosinophils Absolute Auto 0.1 10^3/uL (0.0-0.7); Eosinophils Percent Auto 1.1 % (0.9-7.0); Hematocrit 40.5 % (36.0-48.0); Hemoglobin 13.3 g/dL (12.0-16.0); Immature Granulocytes Abs Auto 0.01 10^3/uL (0.00-0.03); Immature Granulocytes Pct Auto 0.1 % (0.0-0.5); Lymphocytes Absolute Auto 2.2 10^3/uL (1.2-3.8); Lymphocytes Percent Auto 25.6 % (20.5-60.0); Mean Corpuscular HGB Conc 32.8 g/dL (29.9-35.2); Mean Corpuscular Hemoglobin 30.6 pg (26.7-34.0); Mean Corpuscular Volume 93.3 fL (81.0-99.0); Mean Platelet Volume 12.2 fL (9.5-13.5); Monocytes Absolute Auto 0.3 10^3/uL (0.3-0.8); Monocytes Percent Auto 3.4 % (1.7-12.0); Neutrophils Absolute Auto 5.9 10^3/uL (1.4-6.5); Platelet Count 207 10^3/uL (150-450); Red Blood Count 4.34 10^6/uL (4.20-5.40); Red Cell Distribution Width 12.9 % (11.0-15.0); White Blood Count 8.6 10^3/uL (4.0-11.0)
[2024-10-18 11:08] LABS: Estimated Average Glucose 117 mg/dL; Glycohemoglobin A1C 5.7 % (4.5-6.2)
[2024-10-18 11:31] LABS: Alanine Aminotransferase 17 U/L (14-59); Albumin Globulin Ratio 1.1; Albumin Level 3.5 g/dL (3.4-5.0); Alkaline Phosphatase 62 U/L (46-116); Anion Gap 12.8; Aspartate Amino Transferase 16 U/L (15-37); BUN Creatinine Ratio 21.1; Bilirubin Total 0.4 mg/dL (0.2-1.0); Calcium 9.6 mg/dL (8.5-10.1); Carbon Dioxide 28.3 mmol/L (21.0-32.0); Chloride 101 mmol/L (98-107); Chol HDL Ratio 3.3; Cholesterol 200 mg/dL (<=200); Estimated GFR (African America >60 (>=60 mL/min/1.73m^2); Estimated GFR (Non-African Ame >60 (>=60 mL/min/1.73m^2); Globulin 3.2 g/dL; Glucose 96 mg/dL (74-106); HDL Cholesterol 60 mg/dL (40-60); LDL Cholesterol Calculated 116.8 mg/dL; Potassium 4.1 mmol/L (3.5-5.1); Sodium 138 mmol/L (136-145); Total Protein 6.7 g/dL (6.4-8.2); Triglycerides 116 mg/dL (<=150); VLDL CHOLESTEROL 23.2 mg/dL
== END 2024-10-18 10:32 | disposition home or self-care (01) ==
LOC: MAMMO 10:31
PROVIDERS: PCP Internal Medicine; Visit Provider Internal Medicine
DX: Z12.31 Encounter for screening mammogram for malignant neoplasm of breast (principal); R73.01 Impaired fasting glucose; I89.0 Lymphedema, not elsewhere classified; E78.00 Pure hypercholesterolemia, unspecified; I10 Essential (primary) hypertension; Z80.3 Family history of malignant neoplasm of breast; Z80.1 Family history of malignant neoplasm of trachea, bronchus and lung
CPT/HCPCS: 36415; 77063; 77067; 80053; 80061; 83036; 85025

== ENCOUNTER 2025-05-30 12:26 | Outpatient (OUT) | payer MEDICARE, OTHER, SELFPAY ==
--- OUTSIDE RECORDS SUMMARY | 2025-05-30 07:20 | XMS_ITS | Continuity of Care Document ---
Author Organization [facility] Address [address] [place] [address] Phone Care Team Providers Care Lending Advisor Name Role Phone Ba Billingsley DO Primary Care Provider Ba Billingsley DO Attending Provider Care Teams Patient Care Team Team Status: Active Member Role/Relationship Status Dates Ba Billingsley DO Primary Care Provider Active Visit Care Team Team Status: Inactive Member Role/Relationship Status Dates Ba Billingsley DO Primary Care Provider Active Start: March 06, 2025 End: March 06Nesha Frye ProviderActiveStart: March 06, 2025 End: March 06, 2025 Patient Care Team Team Status: Inactive Member Role/Relationship Status Dates Ba Billingsley DO Primary Care Provider Active Start: May 30, 2025 End: May 30Nesha Frye ProviderActiveStart: May 30, 2025 End: May 30, 2025 Patient Care Team Team Status: Active Member Role/Relationship Status Dates Ba Billingsley DO Primary Care Provider Active Start: May 30, 2025 Nesha Kulkarni ProviderActiveStart: May 30, 2025 Chief Complaint and Reason for Visit Chief Complaint Admit Date Flu Shot March 06, 2025 9:39am 6 month f/u May 30, 2025 10:39am Reason for Visit Admit Date Anxiety, generalized May 30, 2025 10:39am Chronic venous insufficiency of lower ex tremity May 30, 2025 10:39am Essential hypertension May 30 10:39am Gastroesophageal reflux dise ase with esophagitis without hemorrhage May 30, 2025 10:39am Hypercholesterolemia May 30, 2025 10:39am IFG (impaired fasting glucose) May 30, 2025 10:39am Obstructive sleep apnea May 30, 025 10:39am Overweight May 30, 2025 10:39am Pulmonary hypertension May 30 10:39am Allergies, Adverse Reactions, Alerts Allergen Type Severity Reaction Last Updated Verified Status sulfamethoxazole Allergy Unknown Hives May 30, 2025 11:01am Yes Active Social History Smoking Status Status Start Date End Date Date of Observa tion Never smoked tobacco (finding) November 16, 2024 8:33am Observation Status Observation Response Date of Response Legal Sex Female (finding) Sex Assigned At BirthFemaleMay 1940 Family History Relationship Condition Age at Onset Recorded Date/T tariq father Heart disease Unknown Malignant neoplasmUnknownFamily history of lung cancerUnknownmotherHypertension UnknownsisterMalignant neoplasm of breastUnknownMalignant neoplasmUnknown Problems Active Problems Problem Diagnosis/Recorded Date Onset Date Stat Chronic venous insufficiency of lower extremity March 20, 2024 7:20pm Unknown Active Gastroesophageal reflux dise ase with esophagitis without hemorrhage August 19, 2023 10:36am Unknown Activ e Obstructive sleep apnea August 19, 2023 10:36am Unknow n Active Anxiety, generalized August 19, 2023 10:36am Unknown Active Primary osteoarthritis of left knee August 19, 2023 10 :36am Unknown Active Screening mammogram for breast cancer October 13, 2024 9: 05am Unknown Active Pulmonary hypertension May 02, 2024 10:44am Unk nown Active Hypercholesterolemia October 11, 2023 6:27am Unknown Active Lymphedema May 02, 2024 10:43am Unknown Active IFG (impaired fasting glucose) October 18, 2023 12:17pm U nknown Active Overweight October 13, 2024 9:11am Unknown Active Essential hypertension August 19, 2023 10:36am Unknown Active Hypercalcemia October 18, 2023 12:15pm Unknown Activ e Inactive/Resolved Problems Problem Diagnosis/Recorded Date Onset Date Stat us Estrogen deficiency August 19, 2023 10:36am Unknown Resolved Medications Medication Status Dose Units Route Directions Qty Days Refills S tart Date Stop Date End Date Reason(s) Instructions Adherence Amlodipine 5 mg tablet Discontinued 0 .ROUTE.RWGJTJO977Qwwwu 2023 11:55amMay 2023 9:27amTAKE 1 TABLET DAILY Miscellaneous Medical Supply miscActive0.Jobah80Bqvtcys 2023 11:00pm Chronic venous insufficiency of lower extremity Venous insufficiency (chronic) (peripheral)As directedBenazepril 20 mg tablet Lylemojujjzl47XBAMJqqob142326Wcmqdai 2023 11:46amOctober 2023 3:16pm FreeTextSi tablet Orally Once a day; Note: Source Status: Continue; Provider: Jose Cruz Cosme EFurosemide 20 mg fbplipLhjnygypltjo89ZVBNLbugl09355 April 03, 2024 12:05pmOctober 2023 8:50amBenazepril 40 mg tablet Znondjfmhflr77PREIEuimh44433Beqesxw 2023 3:15pmJanuary 2024 10:08am Benazepril 40 mg yytjfrMidujhquzgrr28WKFKWruzl09322Dleqo 2024 12:10pm February 19, 2025 7:37amBenazepril 40 mg tabletActive0.ROUTE.DQOYMRI178 February 19, 2025 7:37amTAKE 1 TABLET BY MOUTH EVERY DAY FOR 90 DAYSUnknown Furosemide 20 mg irwzqfKirmrh66ZPJBKtsue54701Dqoeiqem 19th, 2025 7:24amUnknown Fluticasone Propionate (24 Hour Allergy Relief) 50 mcg/actuation spray,rabfuhdjqxKevcwd4SVIGIDFVGOEZYRPRrtnx as needed for allergy symptomsJuly 2023 11:00pmadminister into each nostrilUnknownAmlodipine 5 mg tabletActive 5MGPODailyMay 2023 9:26amOn Hold: NoneUnknownAspirin (Adult Low Dose Aspirin) 81 mg tablet,delayed release (DR/EC)Lmckje57AZGZElgip dailyNov2023 12:00amUnknownFurosemide 20 mg imvjhjOmljqxynglng86GLEKRdzfm78950 March 19, 2024 11:00pmOctober 2023 12:16pmBenazepril 20 mg tablet Sycunegcnflm13FXCESuafvKbdgkhy 2023 11:37amOctober 2023 12:05pm FreeTextSi tablet Orally Once a day; Note: Source Status: Continue; Provider: Jose Cruz Cosme EFurosemide 20 mg vopixtPpaehncxvkox95WWQAPgtyn90806 March 20, 2024 12:15pmOctober 2023 12:05pmIbuprofen 200 mg capsule Isopia306YOFWQzkgj 6 hours as needed for jdho37592Aybgzfv 2023 7:22pmOn Hold: NoneUnknownFurosemide 20 mg sblwhjTfthwkhnqkqm47PHZGHmkbb32027Vwycurh 2023 8:49amNovember 2024 7:24amBenazepril 40 mg vmgvxiAzfdginrmxpv94 VXCPKdppt39260Tcwizes 2024 10:07amApril 2024 12:10pmNirmatrelvir- Ritonavir (Paxlovid) 300 mg (150 mg x 2)-100 mg tablets,dose gwgpRwvaozguyhjh5PD .LCKYAZR737Rcwzmwhm 2024 12:00amMay 2024 8:26amtake TWO 150 mg tablets of nirmatrelvir with ONE 100 mg tablet of ritonavir twice daily for 5 days PO Amlodipine 5 mg gymrpnSzyupgyuugng5FLBMFBgcemHrhyx 2023 12:00amMarch 2023 11:55amFreeTextSi tablet Orally Once a day; Note: Source Status: Continue; Provider: Jose Cruz Cosme EHydrochlorothiazide 25 mg tabletDiscontinued MGPOMarch 2023 12:00amMay 2023 9:27amFreeTextSi tablet daily Orally Once a day; Note: Source Status: Continue; Provider: Jose Cruz Ramos Benazepril 20 mg sezxyaZclqthlzhuxk3GTNTKDdmvuQzypc 2023 12:00amMay 2023 9:27amFreeTextSi tablet Orally Once a day; Note: Source Status: Continue; Provider: Jose Cruz Cosme EAspirin 81 mg tablet,ebdepuufVfuryisenygq63OD PODailyMarch 2023 12:00amJuly 2023 9:19amCalcium Carbonate-Vitamin D3 (Caltrate 600 Plus D) 600 mg-20 mcg (800 unit) tablet,smfucvuzLzdexl4YFDMARjkzd August 19, 2023 12:00amUnknownBenazepril 20 mg wzmufhStvifndupctw78NNSCVvyzvTit 2023 9:27amOctober 2023 11:37amFreeTextSi tablet Orally Once a day; Note: Source Status: Continue; Provider: Jose Cruz Cosme EHydrochlorothiazide 25 mg ftgienJxemmq33BMCZEyuosRrt 2023 9:27amOn Hold: None FreeTextSi tablet daily Orally Once a day; Note: Source Status: Continue; Provider: Jose Cruz Cosme EUnknownIbuprofen 200 mg jcarycsLseltmjqkzaf012SWKCWleps 6 hours as neededSept2023 11:00pmOctober 2023 7:22pm Immunizations Immunization Event Date Not Given Reason Dose Number Ink Technician Lot Number Reason(s) Given Vaccine Information Statement (VIS) Detail Administration Location COVID-19 mRNA, Comirnaty (SideStep) July 11, 2020 COVID-19 mRNA, Comirnaty (SideStep)August 01OVID-19 mRNA, Comirnaty (SideStep)March 13OVID-19 mRNA, Comirnaty (Pfizer)October 06, 2021 COVID-19 mRNA, Comirnaty (Pfizer)March 08OVID Comirnaty (SideStep) Tri-Sucrose +October 06OVID-19 mRNA Bivalent Booster (SideStep)March 08OVID-19 (Off Grid Electric) 12Y and olderOctober Tap, unspecifiedAugust 2010Fluzone TIV High-Dose 65YR+March 11, 2016 Fluzone TIV High-Dose 65YR+March 15, 2017Fluzone TIV High-Dose 65YR+March 06, [id number] [facility] HospitalInflu[facility], trivalentOctober 2017 Influenza, trivalentOctober 2020Influenza vaccine, quadrivalent, adjuvantedS2021Influenza vaccine, quadrivalent, adjuvanted March 09, 2023Novel Influenza H6X1Onraghwg 2008influenza, unspecified formulationSeptember 2014influenza, unspecified formulation March 11, 2016influenza, unspecified formulationOctober 2016 influenza, unspecified formulationOctober 2017influenza, unspecified formulationOctober 2018influenza, unspecified formulationSeptember 2019influenza, unspecified formulationOctober 2020influenza, unspecified formulationSeptember neumococcal Conjugate Vaccine, 13 valentAugust 2015Pneumococcal Polysacc. Vaccine, 23 valentOctober 2008Tetanus, Diphtheria adult, 2 Lf pres free absMay 2017Tetanus, Diphtheria adult, 5 Lf pres free absOctober , 2012Tetanus, Diphtheria adult, 5 Lf pres free abs February 21, 2014Tetanus, Diphtheria adult, 5 Lf pres free absMay 2017 Vital Signs Vital Reading Result Reference Range Collection Date/Time Height 62 [in_i] May 30, 2025 11:26sxMttnui95.49 kgDecember 2024 11:05amHeart Rate 114 /tzu30-296Msdxzlwa 17th, 2025 11:05amRespiratory rate12 /gas21-61Fzjemoev 2024 11:05amBP Vpjqveuk301 mm[Hg]100-140Dece2024 11:05amBP Dqtwrmcut33 mm[Hg]60-100December 2024 11:05amBMI (Body Mass Index)27.6 kg/x5Fpyjydpr 2024 11:05am Advance Directives Advance Directive Response Recorded Date/ Time Advance Directives No November 16 7:33am Insurance Providers Tamia Lugo Address [address] [place] [id number] Info.Home Phone: Payer Group Member ID Coverage Type Subscriber Relationship to Subscriber Effective Date Expiration Date Medicare [id number] A Snyder Id: [id number] [address] [place] [id number] Home Phone: [employer] Outpatient Id: PLAN [id number] Encounters Encounter Location(s) Arrival/Admit Date Discharge/Departure Date Discharge/Departure Disposition Provider(s) Departed Physician/ Provider Office Visit -[facility] March 06, 2025 9:39am March 06, 2025 9:47am Discharged to home care or self care (routine discharge) Ba Billingsley DO Departed Physician/ Provider Office Visit -[facility] May 30, 2025 10:39am May 30, 2025 12:19pm Discharged to home care or self care (routine discharge) Ba Billingsley DO Registered Clinical -[facility] May 30, 2025 11:57am Ba Billingsley DO Recent Diagnosis Onset Date Admit Date Anxiety, generalized Unknown May 302024 10:39am Chronic venous insufficiency of lower extremity Unknown May 30, 2025 10:39am Essential hypertension Unknown May 30, 2025 10:39am Gastroesophageal reflux dise ase with esophagitis without hemorrhage Unknown May 30, 2025 10: 39am Hypercholesterolemia Unknown May 302024 10:39am IFG (impaired fasting glucose) Unknown D ecember 2024 10:39am Obstructive sleep apnea Unknown May 30, 2025 10:39am Overweight Unknown May 30, 2 025 10:39am Pulmonary hypertension Unknown May 30, 2025 10:39am Assessments Diagnosis Onset Date Resolution Status Admit Date Anxiety, generalized acuteDeceer 2024 10:39amChronic venous insufficiency of lower extremity acuteDece2024 10:39amEssential hypertensionacuteDece2024 10:39amGastroesophageal reflux disease with esophagitis without hemorrhageacute May 30, 2025 10:39amHypercholesterolemiaacuteDeceer 2024 10:39am IFG (impaired fasting glucose)acuteDece2024 10:39amObstructive sleep apneaacuteDecember 2024 10:39amOverweightacuteDecember 2024 10:39am Pulmonary hypertensionacuteDecember 2024 10:39am Plan of Treatment Author [facility] 3:29pmI have instructed this patient to consume a healthy, low-fat, low-salt diet. I have also encouraged them to continue exercise with weight loss to achieve/maintain a BMI < 30. I have instructed this patient on the correct procedure for obtaining home BP measurements:? - rest for 5 minutes w/o talking. - positioned w/ feet on floor and arms supported. - average best 2/3 readings w/ goal < 135/85. - update office w/ home readings in 2 weeks. Continue amlodipine and Benazepril w/o interruption I have instructed this patient on a low fat, high fiber diet and exercise. I have discussed the primary and secondary prevention benefits attributed to lowering LDL cholesterol. I have also discussed the medical treatment of elevated cholesterol, which is based on the 10 year ASCVD risk. I have instructed this patient to avoid lying flat after eating.?? I have also recommended to avoid eating 2 hours prior to bedtime.?? They were also informed that smaller, frequent meals may be better tolerated. I have discussed additional treatment options for persistent symptoms, which includes: weight loss, H2 blockers and PPI. I have also instructed them to notify the office with any pain or difficulty swallowing. This patient is aware of the benefits associated with CHILANGO: With continued use, the patient reduces the risk for [place], CVA, HTN, cardiac dysrhythmias and sudden cardiac deaths. The patient is also aware of the association between CHILANGO and morning headaches, daytime somnolence, fatigue and obesity, which also has been improved with continued use. The patient is compliant with treatment, wearing the equipment every night for greater than 4 hours. The patient is instructed to continue use of the CPAP for CHILANGO treatment. Instructed on a healthy diet and exercise routine. Instructed to continue medical treatment w/o interruption. Instructed to avoid abrupt d/c of medication due to w/d symptoms. PAH group III (pulmonary) - compliant w/ CPAP Echocardiogram: LVEF 55%, diastolic dysfunction, normal RV size/function, RVSP 32, mild-mod TR - 03/2024 EKG w/ incomplete RBBB w/ T-wave inversion V1-V3, which is unchanged from previous tracing in 2010 CXR: calcified granuloma, otherwise normal PFT: FEV1/FVC 81, FEV1 123%, TLC 111, DLCO 94% May schedule CT His A1C is between 5.7-6.5%. Instructed on low carb, high fiber diet. Instructed on routine exercise program for 30-60min three times weekly. Instructed on correlation between obesity and insulin resistance and encouraged to lose weight. Monitor A1C every 6 months. A1C: 5.7% 10/2024 I have instructed this patient to avoid salt and elevate their lower extremities. I have also recommended use of support stockings. I instructed them to inspect their legs and feet daily for blisters and ulcerations. Continue Furosemide without interruption - couple for next few days and update office I have instructed this patient on a low-fat, high-fiber diet.?? I have also instructed them to reduce calories, portions sizes, sweet drinks and snacks.?? I have also recommended they exercise for 30 minutes, 3-5 times weekly. They are aware of the comorbid conditions associated with excessive weight: Diabetes, HTN, Hyperlipidemia, CAD and arthritis. Future Tests Future scheduled test information is unavailable Pending Tests Test Name Ordered Date Scheduled Date Comprehensive Metabolic Panel May 30 12:11pm Future Visits Future appointment information is unavailable Future Procedures Procedure Name Ordered Date Scheduled Date Complete Blood Count Auto Diff May 30 12:11pm [facility] ECG *PCP OFFICE ONLY*May 30, 2025 11:57amDecember 2024 11:57am Triiodothyronine (T3) TotalDecember 2024 12:11pmFree T4 (Free Thyroxine) May 30, 2025 12:11pmThyroid Stimulating HormoneDecember 2024 12:11pm Future Medications Future medication information is unavailable Patient Instructions Patient instructions are unavailable
[2025-05-30 12:58] LABS: Hematocrit 44.9 % (36.0-48.0); Hemoglobin 14.5 g/dL (12.0-16.0); Immature Granulocytes Abs Auto 0.02 10^3/uL (0.00-0.03); Immature Granulocytes Pct Auto 0.2 % (0.0-0.5); Lymphocytes Absolute Auto 2.4 10^3/uL (1.2-3.8); Mean Corpuscular HGB Conc 32.3 g/dL (29.9-35.2); Mean Corpuscular Hemoglobin 29.7 pg (26.7-34.0); Mean Corpuscular Volume 92.0 fL (81.0-99.0); Platelet Count 240 10^3/uL (150-450); Red Blood Count 4.88 10^6/uL (4.20-5.40); White Blood Count 9.9 10^3/uL (4.0-11.0)
[2025-05-30 14:19] LABS: Alanine Aminotransferase 17 U/L (14-59); Albumin Globulin Ratio 1.3; Albumin Level 4.0 g/dL (3.4-5.0); Alkaline Phosphatase 70 U/L (46-116); Anion Gap 12.4; Aspartate Amino Transferase 14 U/L (15-37); Blood Urea Nitrogen 25.0 mg/dL (7.0-18.0); Calcium 9.8 mg/dL (8.5-10.1); Carbon Dioxide 28.9 mmol/L (21.0-32.0); Chloride 105 mmol/L (98-107); Estimated GFR (African America 56 (>=60 mL/min/1.73m^2); Estimated GFR (Non-African Ame 46 (>=60 mL/min/1.73m^2); Globulin 3.2 g/dL; Glucose 106 mg/dL (74-106); Potassium 4.3 mmol/L (3.5-5.1); Sodium 142 mmol/L (136-145); Thyroid Stimulating Hormone 0.958 uIU/mL (0.358-3.740); Total Protein 7.2 g/dL (6.4-8.2)
== END 2025-05-30 12:27 | disposition home or self-care (01) ==
LOC: LAB 12:30
PROVIDERS: PCP Internal Medicine; Visit Provider Internal Medicine
DX: R73.01 Impaired fasting glucose (principal); R00.0 Tachycardia, unspecified; R53.83 Other fatigue; I10 Essential (primary) hypertension
CPT/HCPCS: 36415; 80053; 84439; 84443; 84480; 85025